=== PATIENT | female | born 1950 | race Caucasian/White ===

== ENCOUNTER → 2020-01-25 11:20 | Outpatient (BNVA) | payer BC, SELFPAY | PROVIDERS: PCP Internal Medicine; Referring Provider Internal Medicine; Visit Provider Hospitalist | DX: Z76.89 Persons encountering health services in other specified circumstances (principal) ==

== ENCOUNTER → 2020-05-23 09:40 | Outpatient (BNVA) | payer BC, SELFPAY | PROVIDERS: PCP Internal Medicine; Visit Provider Hospitalist | DX: J44.9 Chronic obstructive pulmonary disease, unspecified (principal) ==

== ENCOUNTER 2020-12-11 10:37 | Outpatient (REF) | payer BC, SELFPAY ==
--- NOTE | ~2020-12-11 | XR_ITS ---
EXAMINATION: XR CHEST CLINICAL INFORMATION: COPD COMPARISON: None TECHNIQUE: 2 views of the chest were obtained. FINDINGS: The cardiac and mediastinal contours are normal. There is a right subclavian dual chamber pacemaker in satisfactory position. The lungs are well inflated. The lungs are clear. There is no pleural effusion or pneumothorax. There are old left posterior rib fractures. There are degenerative changes of the spine. XR/XR chest 2V IMPRESSION: Well-inflated lungs. No evidence for acute disease in the chest.
[2020-12-11 12:29] LABS: MANUAL DIFF FLAG NO
[2020-12-11 12:31] LABS: Basophils Percent Auto 0.6 % (0-2); Eosinophils Absolute Auto 0.6 X10*3/uL (0.0-0.4); Eosinophils Percent Auto 10.9 % (0-4); Hematocrit 39.6 % (37-47); Hemoglobin 13.2 g/dl (12.0-16.0); Imm Gran Abs Auto 0.01 X10*3/uL (0.00-0.03); Imm Gran Pct Auto 0.2 % (0.0-0.4); Lymphocytes Absolute Auto 1.7 X10*3/uL (1.2-4.9); Lymphocytes Percent Auto 31.9 % (20-40); Mean Corpuscular HGB Conc 33.3 g/dl (31.0-35.0); Mean Corpuscular Hemoglobin 29.2 pg (27.0-33.0); Mean Corpuscular Volume 87.6 fL (80-98); Mean Platelet Volume 9.4 fL (9.4-12.3); Monocytes Absolute Auto 0.6 X10*3/uL (0.1-1.2); Monocytes Percent Auto 10.8 % (2-11); Neutrophils Absolute Auto 2.5 X10*3/uL (2.0-8.3); Neutrophils Percent Auto 45.6 % (45-73); Platelet Count 183 X10*3/uL (160-400); Red Blood Count 4.52 X10*6/uL (4.20-5.50); Red Cell Distribution Width 12.2 % (11.0-16.0); White Blood Count 5.4 X10*3/uL (4.8-10.8)
[2020-12-11 13:11] LABS: Erythrocyte Sedimentation Rate 10 MM/HR (0-20)
== END 2020-12-11 10:38 | disposition home or self-care (01) ==
LOC: HO.LAB 10:37
PROVIDERS: PCP Internal Medicine; Visit Provider Hospitalist
DX: J42 Unspecified chronic bronchitis (principal); R07.9 Chest pain, unspecified; Z01.82 Encounter for allergy testing
CPT/HCPCS: 36415; 71046; 82785; 85025; 85652; 86003

== ENCOUNTER 2020-12-22 11:04 | Outpatient (REF) | payer BC, SELFPAY ==
--- NOTE | 2020-12-22 16:16 | PFT_ITS ---
Forced vital capacity moderately decreased. FEV1, [id number], and MVV are markedly decreased. Post bronchodilator therapy, there is significant improvement in all parameters. Total lung capacity normal. Residual volume moderately increased. Diffusion capacity is markedly decreased. CONCLUSION: Severe obstructive airway disorder. Partial reversibility after bronchodilator therapy is noted. Findings are consistent with asthma/COPD overlap syndrome. Clinical correlation recommended. MD EMMY Gary/MODL / [id number]
== END 2020-12-22 11:05 | disposition home or self-care (01) ==
LOC: HO.RESP 11:04
PROVIDERS: PCP Internal Medicine; Visit Provider Hospitalist
DX: J44.9 Chronic obstructive pulmonary disease, unspecified (principal); R06.2 Wheezing
CPT/HCPCS: 94060; 94727; 94729

== ENCOUNTER → 2021-01-06 13:27 | Outpatient (BNVA) | payer BC, SELFPAY | PROVIDERS: PCP Internal Medicine; Visit Provider Hospitalist | DX: J44.9 Chronic obstructive pulmonary disease, unspecified (principal); R06.2 Wheezing ==

== ENCOUNTER → 2021-03-11 11:05 | Outpatient (BNVA) | payer BC, SELFPAY | PROVIDERS: PCP Internal Medicine; Visit Provider Hospitalist | DX: J44.9 Chronic obstructive pulmonary disease, unspecified (principal); R06.2 Wheezing; J44.1 Chronic obstructive pulmonary disease with (acute) exacerbation; J45.909 Unspecified asthma, uncomplicated ==

== ENCOUNTER → 2021-06-10 11:20 | Outpatient (BNVA) | payer BC, SELFPAY | PROVIDERS: PCP Internal Medicine; Visit Provider Hospitalist | DX: J44.9 Chronic obstructive pulmonary disease, unspecified (principal); R06.2 Wheezing; J44.1 Chronic obstructive pulmonary disease with (acute) exacerbation; J45.909 Unspecified asthma, uncomplicated; K21.9 Gastro-esophageal reflux disease without esophagitis ==

== ENCOUNTER 2022-03-16 11:06 | Observation (INO) | payer BC, SELFPAY ==
[2022-03-16] VITALS (8 sets, daily range): BP systolic 108–141; BP diastolic 38–72; PULSE 80–98; RESP 13–20; TEMP 36.3–36.6; O2SAT 92–97; BMI 22.4
--- NOTE | ~2022-03-16 | XR_ITS ---
EXAMINATION: XR CHEST CLINICAL INFORMATION: Shortness of breath COMPARISON: Previous chest x-ray December 2020 TECHNIQUE: Frontal view of the chest was obtained. FINDINGS: The cardiac and mediastinal contours are stable. There is a right subclavian dual chamber pacemaker that appears unchanged. The lungs are clear. There is no pleural effusion or pneumothorax. There are old left posterior rib fractures. No acute bone finding. XR/XR chest 1V IMPRESSION: No evidence for acute disease in the chest.
--- OUTSIDE RECORDS SUMMARY | 2022-03-16 11:23 | XMS_ITS | Continuity of Care Document ---
:1950 Author Organization [facility] Address [address] [place] [id number]- Care Team Providers Name Role Phone Cheo Figueroa MD Primary Care Physician [place] [facility] [place] - 10/20/[address] [address] [facility] Attending Physician: Cheo Figueroa MD Admitting Physician: Cheo Figueroa MD Referring Physician: Cheo Figueroa MD Allergies, Adverse Reactions, Alerts Substance Reaction Severity Status Vicodin itch all over Active Tape rash Active Medications Albuterol 0.083% Inhalation Solution Refills 0, Maintenance, 06/01/16 9:05:47 Start Date: 06/01/16 Status: OrderedAnoro Ellipta 62.5 mcg-25 mcg/inh inhalation powder 1 puffs, Inhalation, Daily, # 30 each, 5 Refills, Maintenance, 06/01/16 8:48:01, Powder, 1 puffs Inhalation Daily,x30 days Start Date: 06/01/16 Stop Date: 11/28/16 Status: Orderedatorvastatin 20 mg oral tablet 1 tablet = 20 mg, By Mouth, Daily, # 30 tablet, 0 Refills, Maintenance, Tablet Start Date: 06/01/16 Status: OrderedAzithromycin 5 Day Dose Pack 250 mg oral tablet 1 pack/packet, By Mouth, Once, # 6 tablet, 0 Refills, Soft Stop, 04/27/17 3:16:32, Tablet Start Date: 04/27/17 Status: OrderedbuPROPion 150 mg/24 hours (XL) oral tablet, extended release 1 tablet = 150 mg, By Mouth, Every 24 hours, # 30 tablet, 0 Refills, Maintenance, 06/01/16 9:03:26, ER Tablet Start Date: 06/01/16 Status: OrderedColace sodium 100 mg oral capsule 100 mg, 1, capsule, By Mouth, 2 times a day, PRN, # 20 capsule, Refills 0, Tot. Refills 0, Maintenance, for constipation, 04/27/17 3:17:02, Print Requisition Start Date: 04/27/17 Status: OrderedLidoderm 5% film 1 patch, Topically, Daily, # 30 patch, 0 Refills, Maintenance, 10/26/16 15:16:19, 1 patch Topically Daily Start Date: 10/26/16 Status: OrderedLORazepam 0.5 mg oral tablet 2 tablet = 1 mg, By Mouth, Daily at bedtime, 0 Refills, Maintenance, 06/01/16 9:03:04, Tablet Start Date: 06/01/16 Status: Orderedmelatonin 10 mg oral capsule 1 capsule = 10 mg, By Mouth, Daily at bedtime, 0 Refills, Maintenance, 06/01/16 9:05:01 Start Date: 06/01/16 Status: Orderedmontelukast 10 mg oral tablet 10 mg, 1, tablet, By Mouth, Daily, Refills 0, Maintenance, 06/01/16 9:03:40 Start Date: 06/01/16 Status: OrderedPercocet-5/325 325 mg-5 mg oral tablet 1-2 tablet, By Mouth, Every 6 hours, PRN, # 20 tablet, Refills 0, Tot. Refills 0, Maintenance, for pain, 04/27/17 3:16:42, Print Requisition, Tablet Start Date: 04/27/17 Status: OrderedPredniSONE = 20 mg, By Mouth, 2 times a day, 0 Refills, Maintenance, 11/05/16 10:35:24 Start Date: 11/05/16 Status: OrderedProAir HFA 90 mcg/inh inhalation aerosol with adapter 1, puffs, Inhalation, 4 times a day, PRN, # 8.5 Gm, Refills 0, Maintenance, 06/01/16 9:05:35, Aerosol Start Date: 06/01/16 Status: Orderedsertraline 100 mg oral tablet See Instructions, 2 tablet By Mouth Daily, 0 Refills, Maintenance, 06/01/16 9:04:15, Tablet Start Date: 06/01/16 Status: OrderedStiolto Respimat 2.5 mcg-2.5 mcg inhalation aerosol 2 puffs, Inhalation, Every 24 hours, # 180 inhalation, 0 Refills, Maintenance, 06/01/16 9:05:23, Aerosol Start Date: 06/01/16 Status: Ordered Social History Social History Type Response Smoking Status Former smoker; Tobacco user in household: Yes; Other: quit smoking 2007; entered on: 06/01/16 Sex
--- OUTSIDE RECORDS SUMMARY | 2022-03-16 11:23 | XMS_ITS | Continuity of Care Document ---
:1950 Author Organization [facility] Address [address] [place] [address]- Care Team Providers Name Role Phone Henry JIMÉNEZ, Cheo Dillon Primary Care Physician [place] [facility] [place] 09/28/19 [facility] [address] [place] [id number]- [facility] Attending Physician: Michael Velazquez Admitting Physician: Michael Velazquez Referring Physician: AdmtrMichael Allergies, Adverse Reactions, Alerts Substance Reaction Severity [...]
--- OUTSIDE RECORDS SUMMARY | 2022-03-16 11:23 | XMS_ITS | Continuity of Care Document ---
:1950 Author Organization [facility] Address [address] [place] [address]- Care Team Providers Name Role Phone Cheo Figueroa MD Primary Care Physician Encounter [facility] [place] Date(s): 06/09/21 - 07/15/[address] [address] Attending Physician: Cheo Figueroa MD Admitting Physician: [...]
--- OUTSIDE RECORDS SUMMARY | 2022-03-16 11:23 | XMS_ITS | Continuity of Care Document ---
:1950 Author Organization [facility] Address [address] [address]- Care Team Providers Name Role Phone Henry JIMÉNEZ, Cheo Dillon Primary Care Physician En[place] [facility] [place] Date(s): 05/19/21 - 06/18/21 [facility] [address] [address] Attending Physician: Michael Velazquez Admitting Physician: Michael [...]
--- OUTSIDE RECORDS SUMMARY | 2022-03-16 11:23 | XMS_ITS | Continuity of Care Document ---
:1950 Author Organization [facility] Address [address] [place] [address]- Care Team Providers Name Role Phone Cheo Figueroa MD Primary Care Phys[id number] Date(s): 05/29/21 - 05/29/[address] [address]- Encounter Diagnosis Urinary tract infection (Final) - 05/29/21 Discharge Disposition: A-D/C Home Attending Physician: Cadence Perkins MD Admitting Physician: Cadence Perkins MD Referring Physician: Not on Staff, Referring MD Allergies, Adverse Reactions, Alerts Substance Reaction [...] 9:03:26, ER Tablet Start Date: 06/01/16 Status: Orderedcefpodoxime 100 mg oral tablet 1 tablet = 100 mg, By Mouth, Every 12 hours, for 7 days, # 14 tablet, 0 Refills, Acute 06/05/21 20:58:00 EST, 05/29/21 20:58:00 EST, Tablet, [facility] #[id number], Partial fill upon patient request if theprescription is for a schedule II opioid drug. Start Date: 05/29/21 Stop Date: 06/05/21 Status: OrderedColace sodium 100 mg oral capsule [...] 9:05:23, Aerosol Start Date: 06/01/16 Status: Ordered Vital Signs Most recent to oldest 1 2 3 [Reference Range]: Oxygen Saturation [94-100 %] 100 % 100 % 100 % (05/29/21 9:02 PM) (05/29/21 7:10 PM) (05/29/21 5:1 6 PM) Pulse Rate [55-90 bpm] 79 bpm 71 bpm 74 bpm (05/29/21 9:02 PM) (05/29/21 7:10 PM) (05/29/21 5:1 6 PM) Blood Pressure [90-138/55-84 mm 149/72 mm Hg 159/70 mm Hg 160/136 mm Hg Hg] *H* *H* *H* (05/29/21 9:02 PM) (05/29/21 7:10 PM) (05/29/21 5:1 6 PM) Respiratory Rate [16-30 br/min] 16 br/min 15 br/min 14 br/min (05/29/21 9:02 PM) *L* *L* (05/29/21 7:10 PM) (05/29/21 5:16 PM) Temperature [96.8-100.4 DegF] 97.7 DegF 97.6 DegF 97 .6 DegF (05/29/21 9:02 PM) (05/29/21 7:10 PM) (05/29/21 5:1 6 PM) Mode of Delivery (Oxygen) Room air Room air Room a ir (05/29/21 9:02 PM) (05/29/21 7:10 PM) (05/29/21 5:1 6 PM) Blood pressure sites Arm, left Arm, left Arm, left (05/29/21 9:02 PM) (05/29/21 7:10 PM) (05/29/21 5:1 6 PM) Temperature Route Oral Oral Oral (05/29/21 9:02 PM) (05/29/21 7:10 PM) (05/29/21 5:1 6 PM) Social History Social History Type Response Smoking Status Former smoker; Tobacco user in household: Yes; Other: quit smoking 2007; entered on: 06/01/16 Sex
--- NOTE | 2022-03-16 12:26 | ED.SOB ---
HPI - SOB/Dyspnea General Chief Complaint: Dyspnea Stated Complaint: COPD Time Seen by Provider: 03/16/22 12:03 Source: patient Mode of arrival: ambulatory Limitations: no limitations History of Present Illness HPI Narrative: 71 yo female w/ PMHx COPD, HTN, depression, permanent defibrillator, presenting to the ED complaining of nonproductive cough and SOB x5 days. Reports cough originally productive of yellow sputum, now dry w/ subjective fevers, chest pain w/ coughing, and one episode of diarrhea. Reports SOB at rest and worse on exertion. States she uses her nebulizer 4x daily. Denies headache, dizziness, abd pain, vomiting, bloody stools, leg swelling, recent travel, rashes, or skin changes. MD elicited complaint: shortness of breath, cough and chest pain Onset (ago): day(s) Related Data Home Medications Medication Instructions Recorded Confirmed albuterol sulfate 2.5 mg/3 mL mg inhalation Q6H PRN 01/25/20 06/10/21 (0.083 %) solution for nebulization amlodipine 5 mg tablet 5 mg PO DAILY 01/25/20 06/10/21 clobetasol 0.05 % topical cream g topical BID 01/25/20 06/10/21 lorazepam 1 mg tablet 1 mg PO TID 01/25/20 06/10/21 atorvastatin 20 mg tablet 20 mg PO DAILY 05/23/20 06/10/21 Previous Rx's Medication Instructions Recorded albuterol sulfate 90 mcg/actuation 2 puff inhalation Q6H PRN for 10/13/20 aerosol inhaler wheezing #1 ea budesonide 0.5 mg/2 mL suspension 0.5 mg (2 mL) inhalation BID 30 12/11/20 for nebulization days #120 mL tiotropium bromide 2.5 2 puff inhalation DAILY 90 days #3 01/08/21 mcg/actuation mist for inhalation ea (Spiriva Respimat) roflumilast 250 mcg tablet 250 mcg PO DAILY 30 days #30 tabs 03/11/21 (Daliresp) nirmatrelvir 300 mg (150 mg See Rx Instructions PO .COMPLEX 01/01/22 x2)-ritonavir 100 mg tablet,dose #30 ea pack(EUA) (Paxlovid) montelukast 10 mg tablet 10 mg PO BEDTIME #90 tabs 01/13/22 Allergies Allergy/AdvReac Type Severity Reaction Status Date / Time Vicodin Allergy Mild Rash Verified 12/16/21 11:28 Review of Systems Review of Systems: Constitutional: + Chills, No Night Sweats, No Fatigue, No Malaise ENT/Mouth: No Ear Pain, No Nasal Congestion, No Sinus Pain, No Hoarseness, + mild sore throat, No Rhinorrhea, No Swallowing Difficulty Eyes: No Eye Pain, No Swelling, No Discharge, No Vision Changes Cardiovascular: + Chest Pain, + SOB, No Dyspnea on Exertion, No Orthopnea, No Edema, No Palpitations Respiratory: + Cough, _+ yellow Sputum, + Wheezing, + Dyspnea Gastrointestinal: No Nausea, No Vomiting, + Diarrhea, No Constipation, No Abdominal pain Genitourinary:No Dysuria, No Urinary Frequency, Musculoskeletal: No joint pain, No Myalgias, No Joint Swelling Skin: No Skin Lesions, No rash Neuro: No Weakness, No Dizziness, No Headache PMFSH Past Medical History Attestation statement: The following information was validated with the patient. Medical History Chest pain COPD (chronic obstructive pulmonary disease) Dyspnea Wheezing Social History Social History Alcohol intake: never Patient Tobacco Use Status: Former Tobacco user Tobacco use type: Cigarette Years Smoked: 25 years Smoked in Last 30 Days: No Use of substances other than those prescribed or required for medical reasons: No Advance Directives: No Physical Exam Vital Signs: Vital Signs: Last Vital Signs Temp 97.8 F 03/16/22 14:00 Pulse 98 03/16/22 14:00 Resp 16 03/16/22 14:00 BP 121/38 L 03/16/22 14:00 Pulse Ox 96 03/16/22 14:00 O2 Del Method 03/16/22 14:00 BMI result Body Mass Index 22.4 Const: General: cooperative and no acute distress Nutritional Appearance: well nourished Orientation/consciousness: patient oriented x3 Limitations: no limitations HEENT: Head: Yes normal to inspection and Yes atraumatic Eyes: General: appearance normal, both eyes and all related structures Neck: Neck: Yes normal visual inspection, Yes trachea midline and Yes no JVD Lymphatic: no lymphadenopathy noted Chest: Chest palpation & inspection: normal inspection of the chest Resp: Effort & Inspection: able to speak in complete sentences, audible wheezes and Actively coughing Auscultation: no rales, wheezes expiratory wheezes and throughout and diminished lung sounds bilateral in the lower lung arriola Cardio: Jugular venous distension: no JVD Rate: regular rate Heart sounds: S1 normal heart sound present and S2 normal heart sound present GI: Inspection: Yes normal to inspection Palpation (GI): Soft to palpation, not firm, nontender, no guarding and not rigid Skin: General skin exam: no rashes or lesions noted Neuro: General: patient oriented x3 Extrem: General: Yes normal to inspection, Yes no pedal edema and Yes no calf tenderness Course Course Course Narrative: -no leukocytosis. COVID-19/influenza/RSV negative -troponin negative. -1525--labs otherwise unremarkable. CXR without acute disease. Patient ambulated in the ED and became very short of breath, maintained sats 94% on room air > diffuse expiratory wheeze still appreciated on exam. Plan to admit for further management Medications Administered Generic Name Dose Route Start Last Admin Trade Name Freq PRN Reason Stop Dose Admin Magnesium Sulfate 2 gm in 50 mls @ 25 mls/hr 03/16/22 14:14 03/16/22 14:28 Magnesium Sulfate/H2o IV 03/16/22 16:13 25 mls/hr ONCE ONE Administration Discontinued Medications Generic Name Dose Route Start Last Admin Trade Name Freq PRN Reason Stop Dose Admin Acetaminophen 650 mg 03/16/22 14:14 03/16/22 14:27 Acetaminophen 325 Mg Tablet PO 03/16/22 14:15 650 mg ONCE ONE Administration Albuterol Sulfate 5 mg 03/16/22 12:37 03/16/22 12:59 Albuterol Sulfate 2.5 Mg/0.5 Ml Vial.Neb INHALE 03/16/22 12:38 5 mg ONCE ONE Administration Albuterol Sulfate 2.5 mg/ 5 mg 03/16/22 14:14 03/16/22 14:55 Albuterol Sulfate 2.5 mg INHALE 03/16/22 14:15 5 mg ONCE ONE Administration Albuterol/Ipratropium 3 ml 03/16/22 12:37 03/16/22 12:59 Albuterol/Iprat 2.5/0.5mg 3 Ml Ampul.Neb INHALE 03/16/22 12:38 3 ml ONCE ONE Administration Albuterol/Ipratropium 3 ml 03/16/22 13:28 03/16/22 13:42 Albuterol/Iprat 2.5/0.5mg 3 Ml Ampul.Neb INHALE 03/16/22 13:29 3 ml ONCE ONE Administration Benzonatate 100 mg 03/16/22 13:28 03/16/22 14:07 Benzonatate 100 Mg Capsule PO 03/16/22 13:29 100 mg ONCE ONE Administration Hydrocodone Bit/Homatropine Methylb 5 ml 03/16/22 13:28 03/16/22 14:07 Hydrocodone/Homat 5/1.5/5 Ml 5 Ml Syrup PO 03/16/22 13:29 5 ml ONCE ONE Administration Methylprednisolone Sodium Succinate 125 mg 03/16/22 12:37 03/16/22 13:13 Methylprednisolone Sod Succ 125 Mg/2 Ml Vial IVPUSH 03/16/22 12:38 125 mg ONCE ONE Administration Medical Decision Making Medical Decision Making MDM Narrative: 71 yo female w/ PMHx COPD, HTN, depression, permanent defibrillator, presenting to the ED complaining of nonproductive cough and SOB x5 days. On exam vital signs stable, NAD, nontoxic appearing, lungs with diminished breath sounds and expiratory wheeze. No pedal edema. Concern for COPD exacerbation vs viral illness vs pneumonia. Low suspicion for CHF Plan: EKG, labs, CXR, COVID-19/influenza/RSV testing, DuoNeb, IV Solu-Medrol, re-evaluate Differential Diagnosis Differential Diagnoses: The differential diagnosis associated with the presentation includes Admission/Observation Consideration of admission/observation: Escalation of care including admission/observation considered Lab Data Result Diagrams: 03/16/22 13:08 03/16/22 13:08 Labs: Lab Results 03/16/22 03/16/22 03/16/22 Range/Units 11:27 13:08 13:08 WBC 9.2 (4.8-10.8) X10*3/uL RBC 3.95 L (4.20-5.50) X10*6/uL Hgb 11.2 L (12.0-16.0) g/dl Hct 34.0 L (37.0-47.0) % MCV 86.1 (80.0-98.0) fL MCH 28.4 (27.0-33.0) pg MCHC 32.9 (31.0-35.0) g/dl RDW 12.5 (11.0-16.0) % Plt Count 231 (160-400) X10*3/uL MPV 8.6 L (9.4-12.3) fL Immature Gran % (Auto) 0.3 (0.0-0.4) % Neut % (Auto) 69.4 (45-73) % Lymph % (Auto) 17.4 L (20-40) % [place] % (Auto) 8.2 (2-11) % Eos % (Auto) 4.3 H (0-4) % Baso % (Auto) 0.4 (0-2) % Lymph # (Auto) 1.6 (1.2-4.9) X10*3/uL [place] # (Auto) 0.8 (0.1-1.2) X10*3/uL Eos # (Auto) 0.4 (0.0-0.4) X10*3/uL Baso # (Auto) 0.0 (0.0-0.2) X10*3/uL Abs Immat Gran (auto) 0.03 (0.00-0.03) X10*3/uL Absolute Neuts (auto) 6.4 (2.0-8.3) x10*3/uL Absolute Nucleated RBC 0.000 (0.0-0.012) X10*3/uL Nucleated RBC % (auto) 0.0 (0.0-0.2) /100WBC Sodium 140 (135-145) mmol/L Potassium 4.6 (3.3-5.1) mmol/L Chloride 106 (96-108) mmol/L Carbon Dioxide 26 (22-29) mmol/L Anion Gap 13 (12-20) BUN 13 (9-16) mg/dL Creatinine 0.59 (0.5-1.4) mg/dL Estim Creat Clear Calc 79.8 Estimated GFR > 60 Random Glucose 101 (60-115) mg/dL Calcium 8.8 (8.4-10.2) mg/dL Magnesium 1.7 (1.6-2.6) mg/dL Total Bilirubin 0.4 (0.0-1.0) mg/dL Direct Bilirubin 0.2 (0.0-0.5) mg/dL AST 18 (5-31) U/L ALT 13 (0-31) U/L Alkaline Phosphatase 116 (39-117) U/L Troponin I High Sens (<3.5-17.0) ng/L B-Natriuretic Peptide (<100) pg/mL Total Protein 6.6 (6.5-8.0) g/dL Albumin 3.7 (3.5-5.0) g/dL Urine Color Urine Appearance Urine pH (5.0-9.0) Ur Specific [place] (1.005-1.025) Urine Protein (Neg-Trace) mg/dL Urine Glucose (UA) (Negative) mg/dL Urine Ketones (Negative) mg/dL Urine Blood (Negative) Urine Nitrite (Negative) Ur Leukocyte Esterase (Negative) Urine RBC (0-2) /HPF Urine WBC (0-5) /HPF Ur Squamous Epith Cells (0-2) /HPF Urine Bacteria (None Seen) Hyaline Casts (0-2) /LPF Influenza Type A (PCR) NEGATIVE (Negative) Influenza Type B (PCR) NEGATIVE (Negative) RSV RNA Qual (PCR) NEGATIVE (Negative) SARS-CoV-2 RNA (RT-PCR) NEGATIVE (Negative) 03/16/22 03/16/22 03/16/22 Range/Units 13:08 13:08 14:25 WBC (4.8-10.8) X10*3/uL RBC (4.20-5.50) X10*6/uL Hgb (12.0-16.0) g/dl Hct (37.0-47.0) % MCV (80.0-98.0) fL MCH (27.0-33.0) pg MCHC (31.0-35.0) g/dl RDW (11.0-16.0) % Plt Count (160-400) X10*3/uL MPV (9.4-12.3) fL Immature Gran % (Auto) (0.0-0.4) % Neut % (Auto) (45-73) % Lymph % (Auto) (20-40) % [place] % (Auto) (2-11) % Eos % (Auto) (0-4) % Baso % (Auto) (0-2) % Lymph # (Auto) (1.2-4.9) X10*3/uL [place] # (Auto) (0.1-1.2) X10*3/uL Eos # (Auto) (0.0-0.4) X10*3/uL Baso # (Auto) (0.0-0.2) X10*3/uL Abs Immat Gran (auto) (0.00-0.03) X10*3/uL Absolute Neuts (auto) (2.0-8.3) x10*3/uL Absolute Nucleated RBC (0.0-0.012) X10*3/uL Nucleated RBC % (auto) (0.0-0.2) /100WBC Sodium (135-145) mmol/L Potassium (3.3-5.1) mmol/L Chloride (96-108) mmol/L Carbon Dioxide (22-29) mmol/L Anion Gap (12-20) BUN (9-16) mg/dL Creatinine (0.5-1.4) mg/dL Estim Creat Clear Calc Estimated GFR Random Glucose (60-115) mg/dL Calcium (8.4-10.2) mg/dL Magnesium (1.6-2.6) mg/dL Total Bilirubin (0.0-1.0) mg/dL Direct Bilirubin (0.0-0.5) mg/dL AST (5-31) U/L ALT (0-31) U/L Alkaline Phosphatase (39-117) U/L Troponin I High Sens < 3.5 (<3.5-17.0) ng/L B-Natriuretic Peptide 70 (<100) pg/mL Total Protein (6.5-8.0) g/dL Albumin (3.5-5.0) g/dL Urine Color Dark Yellow Urine Appearance Clear Urine pH 5.5 (5.0-9.0) Ur Specific [place] 1.025 (1.005-1.025) Urine Protein 30 (1+) H (Neg-Trace) mg/dL Urine Glucose (UA) Negative (Negative) mg/dL Urine Ketones Trace (Negative) mg/dL Urine Blood Negative (Negative) Urine Nitrite Negative (Negative) Ur Leukocyte Esterase Trace H (Negative) Urine RBC 0-2 (0-2) /HPF Urine WBC 0-5 (0-5) /HPF Ur Squamous Epith Cells 3-5 (0-2) /HPF Urine Bacteria None Seen (None Seen) Hyaline Casts 0-2 (0-2) /LPF Influenza Type A (PCR) (Negative) Influenza Type B (PCR) (Negative) RSV RNA Qual (PCR) (Negative) SARS-CoV-2 RNA (RT-PCR) (Negative) Critical Care Time Critical Care Time Critical Care Time: Yes Total Critical Care Time: 40 Attestation: I have personally provided critical care time exclusive of time spent on separately billable procedures. Time includes review of lab data, radiology results, discussion with consultants, and monitoring for potential decompensation. Intervention performed as documented. Discharge Plan Discharge Clinical Impression: Acute exacerbation of chronic obstructive airways disease Patient Disposition: Admitted As Inpatient
[2022-03-16 12:34] LABS: Influenza A PCR NEGATIVE (Negative); Influenza B PCR NEGATIVE (Negative); Resp Syncy Virus RNA Qual PCR NEGATIVE (Negative); SARS COV2 PCR INHOUSE NEGATIVE (Negative)
--- NOTE | 2022-03-16 12:37 | ECG_ITS ---
Test Reason : DYSPNEA Blood Pressure : / mmHG Vent. Rate : 080 BPM Atrial Rate : 080 BPM P-R Int : 134 ms QRS Dur : 068 ms QT Int : 372 ms P-R-T Axes : 069 061 074 degrees QTc Int : 429 ms Normal sinus rhythm Low voltage QRS Borderline ECG No previous ECGs available Referred By: Angie Hernandez Electronically Signed By:DAMIAN GALINDO
--- NOTE | 2022-03-16 12:38 | PC.NURSE ---
patient a&ox3, pt has audible expiratory wheezing, lungs very diminished throughout, vitals currently stable, call white within reach, will continue to monitor.
[2022-03-16] MEDS: Albuterol/Iprat 2.5/0.5MG 3 ML AMPUL.NEB INHALE ×2 (12:59→13:42)
[2022-03-16] MEDS: Albuterol Sulfate 2.5 MG/0.5 ML VIAL.NEB 5 MG INHALE (12:59)
[2022-03-16] MEDS: methylPREDNISolone Sod Succ 125 MG/2 ML VIAL IVPUSH (13:13)
--- NOTE | 2022-03-16 13:14 | PC.NURSE ---
iv inserted, labs drawn, ekg performed, monitor tech applied nsr 80s, pt medicated per order, rt started updaft, call white within reach, will continue to monitor
[2022-03-16 13:16] LABS: MANUAL DIFF FLAG NO
[2022-03-16 13:22] LABS: Basophils Percent Auto 0.4 % (0-2); Eosinophils Absolute Auto 0.4 X10*3/uL (0.0-0.4); Eosinophils Percent Auto 4.3 % (0-4); Hemoglobin 11.2 g/dl (12.0-16.0); Imm Gran Abs Auto 0.03 X10*3/uL (0.00-0.03); Imm Gran Pct Auto 0.3 % (0.0-0.4); Lymphocytes Absolute Auto 1.6 X10*3/uL (1.2-4.9); Lymphocytes Percent Auto 17.4 % (20-40); Mean Corpuscular HGB Conc 32.9 g/dl (31.0-35.0); Mean Corpuscular Hemoglobin 28.4 pg (27.0-33.0); Mean Corpuscular Volume 86.1 fL (80.0-98.0); Mean Platelet Volume 8.6 fL (9.4-12.3); Monocytes Absolute Auto 0.8 X10*3/uL (0.1-1.2); Monocytes Percent Auto 8.2 % (2-11); Neutrophils Absolute Auto 6.4 x10*3/uL (2.0-8.3); Neutrophils Percent Auto 69.4 % (45-73); Platelet Count 231 X10*3/uL (160-400); Red Blood Count 3.95 X10*6/uL (4.20-5.50); Red Cell Distribution Width 12.5 % (11.0-16.0); White Blood Count 9.2 X10*3/uL (4.8-10.8)
[2022-03-16 13:44] LABS: Alanine Aminotransferase 13 U/L (0-31); Albumin Level 3.7 g/dL (3.5-5.0); Alkaline Phosphatase 116 U/L (39-117); Anion Gap 13 (12-20); Aspartate Amino Transferase 18 U/L (5-31); Bilirubin Direct 0.2 mg/dL (0.0-0.5); Bilirubin Total 0.4 mg/dL (0.0-1.0); Blood Urea Nitrogen 13 mg/dL (9-16); Calcium 8.8 mg/dL (8.4-10.2); Carbon Dioxide 26 mmol/L (22-29); Chloride 106 mmol/L (96-108); Creatinine Clr Calc Pharmacy 79.8; Estimated Glomerular Filt Rate > 60; Glucose Random 101 mg/dL (60-115); Magnesium 1.7 mg/dL (1.6-2.6); Potassium 4.6 mmol/L (3.3-5.1); Sodium 140 mmol/L (135-145); Total Protein 6.6 g/dL (6.5-8.0)
[2022-03-16 13:47] LABS: B Type Natriuretic Peptide 70 pg/mL (<100)
[2022-03-16 13:51] LABS: Troponin-I High Sensitivity < 3.5 ng/L (<3.5-17.0)
[2022-03-16] MEDS: Benzonatate 100 MG CAPSULE PO ×2 (14:07→21:21)
[2022-03-16] MEDS: HYDROcodone/Homat 5/1.5/5 ML 5 ML SYRUP PO (14:07)
--- NOTE | 2022-03-16 14:23 | PC.NURSE ---
patient ambulated with tech around the ED, pt was notably SOB while ambulating however her O2 sat remained at 94% on room air.
[2022-03-16] MEDS: Acetaminophen 325 MG TABLET 650 MG PO (14:27)
[2022-03-16] MEDS: Magnesium Sulfate/H2O 2 GM/50 ML PIGGYBACK IV (14:28)
--- NOTE | 2022-03-16 14:31 | PC.NURSE ---
pt medicated per order
[2022-03-16 14:41] LABS: Appearance Urine Clear; Color Urine Dark Yellow; Glucose Urine UA Negative (Negative); Leukocyte Esterase Urine Trace (Negative); Nitrite Urine Negative (Negative); PH 5.5 (5.0-9.0); Specific Gravity - Urine 1.025 (1.005-1.025); UMIC TRIGGER UACC YES; Urine Blood Negative (Negative); Urine Ketones Trace mg/dL (Negative); Urine Protein 30 (1+) mg/dL (Neg-Trace)
[2022-03-16 14:46] LABS: Bacteria Urine None Seen (None Seen); Hyaline Casts Urine 0-2 /LPF (0-2); RBC Urine 0-2 /HPF (0-2); WBC Urine 0-5 /HPF (0-5)
[2022-03-16] MEDS: Albuterol Sulfate 2.5 MG, Albuterol Sulfate (0.083%) 2.5 MG 5 MG INHALE (14:55)
--- NOTE | 2022-03-16 15:32 | P.HPHOSP_ITS ---
History of Present Illness Date of Service: 03/16/22 Attending physician on admission: Dora Koenig Chief Complaint: SOB 71 year old women presenting with increased sob and dry cough for the last several days. She has a hx of COPD and has been using her inhalors with no relief. She denies recent illness or sick contacts. She lives with her who also has COPD but no recent illness. She denied fever, chills, recent travel, chest pain, nausea, vomiting or diarrhea. CXR neg for consolidation or effusion. Vitals signs stable, labs within acceptable limits. She was given steroids, albuterol. She will be placed on observation for COPD exacerbation without hypoxia. Review of Systems Review of Systems: Denies any recent fever chills or decrease in appetite respiratory See HPI cardiovascular Denied chest pain gastrointestinal denies any dysphagia abdominal pain nausea vomiting or diarrhea genitourinary denies any dysuria frequency or hematuria musculoskeletal denies any joint pain or swelling neuropsych denies any weakness or seizures all other systems reviewed are negative [facility] Medical History (Updated 03/16/22 @ 16:26 by Christina Martínez NP) Anxiety Chest pain COPD (chronic obstructive pulmonary disease) Hypertension Pertinent family history: Denies cardiac disease Social History Alcohol intake: never Patient Tobacco Use Status: Former Tobacco user Tobacco use type: Cigarette Years Smoked: 25 years Smoked in Last 30 Days: No Use of substances other than those prescribed or required for medical reasons: No Advance Directives: No Meds Allergies Allergy/AdvReac Type Severity Reaction Status Date / Time Vicodin Allergy Mild Rash Verified 12/16/21 11:28 Active Medications: Current Medications Magnesium Sulfate (Magnesium Sulfate/H2o) 2 gm in 50 mls @ 25 mls/hr IV ONCE ONE Stop: 03/16/22 16:13 Last Admin: 03/16/22 14:28 Dose: 25 mls/hr Home Medications Medication Instructions Recorded Confirmed Last Taken Type amlodipine 5 mg tablet 5 mg PO DAILY 01/25/20 06/10/21 Unknown History clobetasol 0.05 % topical cream g topical BID 01/25/20 06/10/21 Unknown History lorazepam 1 mg tablet 1 mg PO BEDTIME PRN Sleep 01/25/20 03/16/22 Unknown History atorvastatin 20 mg tablet 20 mg PO DAILY 05/23/20 06/10/21 Unknown History arformoterol 15 mcg/2 mL solution 1 vial inhalation Q12H 03/16/22 03/16/22 Unknown History for nebulization duloxetine 30 mg capsule,delayed 1 cap PO DAILY 03/16/22 03/16/22 Unknown History release duloxetine 60 mg capsule,delayed 1 cap PO DAILY 03/16/22 03/16/22 Unknown History release ipratropium 0.5 mg-albuterol 3 mg 1 vial inhalation QID 03/16/22 03/16/22 Unknown History (2.5 mg base)/3 mL nebulization soln lorazepam 1 mg tablet 1 mg PO DAILY PRN Anxiety 03/16/22 03/16/22 Unknown History trazodone 50 mg tablet 1 tab PO BEDTIME PRN Sleep 03/16/22 03/16/22 Unknown History Physical Exam Vital Signs and Narrative: Vital Signs: Last Vital Signs Temp 97.8 F 03/16/22 14:00 Pulse 98 03/16/22 14:00 Resp 16 03/16/22 14:00 BP 121/38 L 03/16/22 14:00 Pulse Ox 96 03/16/22 14:00 O2 Del Method 03/16/22 14:00 BMI result Body Mass Index 22.4 Appearing in no acute distress head is normocephalic atraumatic eyes pupils are PERRLA sclera is anicteric mouth throat mucous membranes are intact and moist neck is supple no lymphadenopathy, no JVD noted lung sounds are clear to auscultation heart regular rate rhythm, clear S1, S2 positive bowel sounds, abdomen is soft, nontender neuro patient is alert x3, no focal deficits Results Labs CBC and Chem 7: 03/16/22 13:08 03/16/22 13:08 Labs: Laboratory Results - last 24 hr 03/16/22 03/16/22 03/16/22 11:27 13:08 13:08 MCV 86.1 MCH 28.4 MCHC 32.9 RDW 12.5 Plt Count 231 MPV 8.6 L Immature Gran % (Auto) 0.3 Neut % (Auto) 69.4 Lymph % (Auto) 17.4 L [place] % (Auto) 8.2 Eos % (Auto) 4.3 H Baso % (Auto) 0.4 Lymph # (Auto) 1.6 [place] # (Auto) 0.8 Eos # (Auto) 0.4 Baso # (Auto) 0.0 Abs Immat Gran (auto) 0.03 Absolute Neuts (auto) 6.4 Absolute Nucleated RBC 0.000 Nucleated RBC % (auto) 0.0 Anion Gap 13 Estim Creat Clear Calc 79.8 Estimated GFR > 60 Random Glucose 101 Calcium 8.8 Magnesium 1.7 Total Bilirubin 0.4 Direct Bilirubin 0.2 AST 18 ALT 13 Alkaline Phosphatase 116 Troponin I High Sens B-Natriuretic Peptide Total Protein 6.6 Albumin 3.7 Urine Color Urine Appearance Urine pH Ur Specific [place] Urine Protein Urine Glucose (UA) Urine Ketones Urine Blood Urine Nitrite Ur Leukocyte Esterase Urine RBC Urine WBC Ur Squamous Epith Cells Urine Bacteria Hyaline Casts Influenza Type A (PCR) NEGATIVE Influenza Type B (PCR) NEGATIVE RSV RNA Qual (PCR) NEGATIVE SARS-CoV-2 RNA (RT-PCR) NEGATIVE 03/16/22 03/16/22 03/16/22 13:08 13:08 14:25 MCV MCH MCHC RDW Plt Count MPV Immature Gran % (Auto) Neut % (Auto) Lymph % (Auto) [place] % (Auto) Eos % (Auto) Baso % (Auto) Lymph # (Auto) [place] # (Auto) Eos # (Auto) Baso # (Auto) Abs Immat Gran (auto) Absolute Neuts (auto) Absolute Nucleated RBC Nucleated RBC % (auto) Anion Gap Estim Creat Clear Calc Estimated GFR Random Glucose Calcium Magnesium Total Bilirubin Direct Bilirubin AST ALT Alkaline Phosphatase Troponin I High Sens < 3.5 B-Natriuretic Peptide 70 Total Protein Albumin Urine Color Dark Yellow Urine Appearance Clear Urine pH 5.5 Ur Specific [place] 1.025 Urine Protein 30 (1+) H Urine Glucose (UA) Negative Urine Ketones Trace Urine Blood Negative Urine Nitrite Negative Ur Leukocyte Esterase Trace H Urine RBC 0-2 Urine WBC 0-5 Ur Squamous Epith Cells 3-5 Urine Bacteria None Seen Hyaline Casts 0-2 Influenza Type A (PCR) Influenza Type B (PCR) RSV RNA Qual (PCR) SARS-CoV-2 RNA (RT-PCR) Imaging Radiologist's Impressions: Impressions Chest X-Ray 03/16/22 13:58 IMPRESSION: No evidence for acute disease in the chest. Assessment and Plan (1) Acute exacerbation of chronic obstructive airways disease: Status: Acute Plan 71 Year old women admitted with COPD exacerbation with no hypoxia. COPD exacerbation No hypoxia noted Treat with duonebs and solumedrol supplemental oxygen as needed Hypertension continue home medications HLD statin Mental health continue home medications DVT prophylaxis with Lovenox Full code OBS Time Spent With Patient Time: Total time managing care of this patient today ____ minutes. Quality Stroke Does the patient have a stroke diagnosis?: No VTE Prior VTE?: No VTE Risk Level:: Medical - moderate - high VTE Device Contraindication: Treatment Not Indicated VTE Drug Contraindication: N/A - Med Ordered
[2022-03-16] MEDS: 0.9 % Sodium Chloride Flush 3 ML SYRINGE IVFLUSH (16:39)
[2022-03-16] MEDS: Enoxaparin Sodium 40 MG/0.4 ML SYRINGE SUBCUT (16:39)
--- NOTE | 2022-03-16 16:40 | PC.NURSE ---
pt medicated per order
--- NOTE | 2022-03-16 16:51 | PHA.MEDREC ---
Pharmacy Consult ? Medication Reconciliation Pharmacy has completed the medication reconciliation. spoke with pt and reviewed the list she brought in
--- NOTE | 2022-03-16 18:39 | P.EN_ITS ---
Event Note Date of Service: 03/16/22 Event Note: This patient is seen and examined with APC. Patient presented with shortness of breath and dry cough for several days she tried her home nebulizer but did not help so decided to come to the hospital- admitted for COPD exacerbation. Lab imaging: h/h:,bmp seems fine , EKG reviewed-nsr. Physical exam : Coordinated admitted in H&P note,lung sounds dimnished ,wheezing assessment and plan coordinated in APCs note, Agree with the plan in addition: COPD exacerbation Continue nebs, steroids, supportive care with oxygen, continue to monitor respiratory status Time Spent With Patient Time: Total time managing care of this patient today ____ minutes.
[2022-03-16] MEDS: Albuterol Sulfate (0.083%) 2.5 MG/3 ML VIAL.NEB INHALE (20:12)
[2022-03-16] MEDS: methylPREDNISolone Sod Succ 40 MG/ML VIAL IVPUSH (20:14)
--- NOTE | 2022-03-16 20:14 | PC.NURSE ---
pt medicated per order, rt at bedside doing updraft vss
[2022-03-17] VITALS (11 sets, daily range): BP systolic 120–153; BP diastolic 55–76; PULSE 80–100; RESP 16–20; TEMP 35.9–36.6; O2SAT 93–96
[2022-03-17] MEDS: 0.9 % Sodium Chloride Flush 3 ML SYRINGE IVFLUSH ×2 (00:14→20:05)
[2022-03-17] MEDS: Montelukast Sodium 10 MG TABLET PO ×2 (00:16→20:05)
[2022-03-17] MEDS: DULoxetine HCl 30 MG CAPSULE.DR PO ×2 (00:16→20:05)
[2022-03-17] MEDS: traZODone HCL 50 MG TABLET PO (00:16)
[2022-03-17] MEDS: Atorvastatin Calcium 20 MG TABLET PO ×2 (00:16→20:05)
[2022-03-17] MEDS: amLODIPine Besylate 5 MG TABLET PO ×2 (00:16→20:05)
[2022-03-17] MEDS: DULoxetine HCl 60 MG CAPSULE.DR PO ×2 (00:31→20:05)
[2022-03-17] MEDS: methylPREDNISolone Sod Succ 40 MG/ML VIAL IVPUSH ×3 (04:19→20:05)
[2022-03-17 06:47] LABS: MANUAL DIFF FLAG NO
[2022-03-17 06:54] LABS: Basophils Percent Auto 0.1 % (0-2); Hematocrit 33.1 % (37.0-47.0); Hemoglobin 10.8 g/dl (12.0-16.0); Imm Gran Abs Auto 0.07 X10*3/uL (0.00-0.03); Imm Gran Pct Auto 0.8 % (0.0-0.4); Lymphocytes Absolute Auto 0.7 X10*3/uL (1.2-4.9); Lymphocytes Percent Auto 7.4 % (20-40); Mean Corpuscular HGB Conc 32.6 g/dl (31.0-35.0); Mean Corpuscular Hemoglobin 28.5 pg (27.0-33.0); Mean Corpuscular Volume 87.3 fL (80.0-98.0); Mean Platelet Volume 9.1 fL (9.4-12.3); Monocytes Absolute Auto 0.3 X10*3/uL (0.1-1.2); Monocytes Percent Auto 3.7 % (2-11); Neutrophils Absolute Auto 8.1 x10*3/uL (2.0-8.3); Platelet Count 250 X10*3/uL (160-400); Red Blood Count 3.79 X10*6/uL (4.20-5.50); Red Cell Distribution Width 12.5 % (11.0-16.0); White Blood Count 9.2 X10*3/uL (4.8-10.8)
[2022-03-17] MEDS: Albuterol Sulfate (0.083%) 2.5 MG/3 ML VIAL.NEB INHALE ×4 (07:37→20:17)
[2022-03-17 07:39] LABS: Anion Gap 17 (12-20); Blood Urea Nitrogen 29 mg/dL (9-16); Calcium 8.8 mg/dL (8.4-10.2); Carbon Dioxide 25 mmol/L (22-29); Chloride 106 mmol/L (96-108); Creatinine Clr Calc Pharmacy 49.6; Estimated Glomerular Filt Rate 58; Glucose Random 165 mg/dL (60-115); Potassium 3.9 mmol/L (3.3-5.1); Sodium 144 mmol/L (135-145)
--- NOTE | 2022-03-17 11:40 | MHC.CM.PN ---
Meet with patient for CM assessment. from home no services prior to admission. vax'd & boosted. HCP completed. d/c plan- later today after being seen by Dr. Koenig, home no services. family to transport.
[2022-03-17] MEDS: Benzonatate 100 MG CAPSULE PO (14:18)
[2022-03-17] MEDS: Enoxaparin Sodium 40 MG/0.4 ML SYRINGE SUBCUT (16:26)
[2022-03-17] MEDS: Acetaminophen 325 MG TABLET 650 MG PO (16:28)
[2022-03-18] MEDS: traZODone HCL 50 MG TABLET PO (00:18)
[2022-03-18] MEDS: Acetaminophen 325 MG TABLET 650 MG PO ×2 (00:18→09:16)
[2022-03-18] MEDS: Benzonatate 100 MG CAPSULE PO (00:18)
[2022-03-18 04:00] VITALS: BP 106/51; PULSE 75; RESP 17; TEMP 36.7; O2SAT 96
[2022-03-18] MEDS: methylPREDNISolone Sod Succ 40 MG/ML VIAL IVPUSH (05:20)
[2022-03-18] MEDS: 0.9 % Sodium Chloride Flush 3 ML SYRINGE IVFLUSH (07:15)
[2022-03-18] MEDS: Albuterol Sulfate (0.083%) 2.5 MG/3 ML VIAL.NEB INHALE ×2 (07:56→11:20)
[2022-03-18 07:58] VITALS: PULSE 87; RESP 18; O2SAT 97
[2022-03-18 08:00] VITALS: BP 121/64; PULSE 84; RESP 18; TEMP 36.5; O2SAT 97
[2022-03-18] MEDS: Loratadine 10 MG TABLET PO (09:16)
[2022-03-18] MEDS: guaiFENesin 100 MG/5 ML LIQUID 10 ML PO (09:17)
[2022-03-18 11:22] VITALS: PULSE 99; RESP 20; O2SAT 95
--- NOTE | 2022-03-18 12:12 | PM.DS ---
DS: Providers Provider Date of Service: 03/18/22 Date of admission: 03/16/22 15:37 Primary care physician: Cheo Figueroa MD DS: Diagnosis Discharge Diagnosis (1) Acute exacerbation of chronic obstructive airways disease: Status: Acute DS: Summary Hospital Course Hospital Course: 71 year old women presenting with increased sob and dry cough for the last several days. She has a hx of COPD and has been using her inhalors with no relief. She denies recent illness or sick contacts. She lives with her who also has COPD but no recent illness. She denied fever, chills, recent travel, chest pain, nausea, vomiting or diarrhea. CXR neg for consolidation or effusion. Vitals signs stable, labs within acceptable limits. She was given steroids, albuterol. She will be placed on observation for COPD exacerbation without hypoxia. hospital course: Patient was admitted for COPD exacerbation: Started on nebs, steroids, supportive care-seems to be improved. Going home with p.o. steroids, continue her home COPD medications. Above management discussed with the patient in detail length she understand and in agreement with the above plan, time spent 50 minutes and 50% time spent on counseling. Time Spent with Patient Time attestation: Total time managing care of this patient today ____ minutes. Discharge coordination time: Greater than 30 minutes Quality: Safe Use of Opioids Does Pt have an Active Cancer Diagnosis on the Problem List?: No Quality: Stroke Does the patient have a stroke diagnosis?: No Physical Exam Vital Signs: Vital Signs: Last Vital Signs Temp 97.7 F 03/18/22 08:00 Pulse 99 03/18/22 11:22 Resp 20 03/18/22 11:22 BP 121/64 03/18/22 08:00 Pulse Ox 97 03/18/22 08:00 O2 Del Method 03/18/22 08:00 BMI result Body Mass Index 22.4 Appearance: Alert.? Oriented X3.? not in distress.? Eyes: Pupils equal, round and reactive to light.? Sclera nonicteric.? ENT: Pharynx normal.? Moist mucous membranes. cvs: rrr, [id number]. res: clear to auscultation ,no rhonchii or wheezing abd: no rebound or guarding ,nt, bs present. ext pulses present , no cyanosis . neuro: axo3 , nonfocal. DS: Data Imaging Chest x-ray: Radiologist's impression: ITS Impressions Chest X-Ray 03/16/22 13:58 IMPRESSION: No evidence for acute disease in the chest. Discharge Plan Discharge Patient Disposition: Home, Self-Care Discharge Diagnosis: copd excerebation Referrals: Cheo Figueroa MD [Primary Care Provider] - 1 Week Discharge Medications: New loratadine 10 mg Tablet 10 mg PO DAILY Qty: 5 0RF prednisone 20 mg tablet 40 mg PO DAILY Qty: 8 0RF Continued albuterol sulfate 90 mcg/actuation HFA aerosol inhaler 2 puff inhalation Q6H PRN (Reason: for wheezing) Qty: 1 3RF Spiriva Respimat 2.5 mcg/actuation mist 2 puff inhalation DAILY 90 Days Qty: 3 3RF montelukast 10 mg tablet 10 mg PO BEDTIME Qty: 90 1RF ipratropium-albuterol 0.5 mg-3 mg(2.5 mg base)/3 mL solution for nebulization 1 vial inhalation QID trazodone 50 mg tablet 1 tab PO BEDTIME PRN (Reason: Sleep) duloxetine 30 mg capsule,delayed release(DR/EC) 30 mg PO BEDTIME duloxetine 60 mg capsule,delayed release(DR/EC) 60 mg PO BEDTIME roflumilast [Daliresp] 250 mcg tablet 250 mcg PO BEDTIME amlodipine 5 mg tablet 5 mg PO BEDTIME atorvastatin 20 mg tablet 20 mg PO BEDTIME Discharge Orders: Discharge Order (Routine); Ordered 03/18/22 Ordered By: Dora Koenig Diet: Advance to usual diet Activity on Discharge: As tolerated Stand Alone Forms: Patient Portal Discharge page Care Plan Goals: Patient was admitted for COPD exacerbation: Started on nebs, steroids, supportive care-seems to be improved. Going home with p.o. steroids, continue her home COPD medications. Health Concerns: As above. Plan of Treatment: As above. Assessment: As above. Patient Instructions: COPD (Chronic Obstructive Pulmonary Disease) (DC)
--- NOTE | 2022-03-18 12:42 | MHC.CM.PN ---
PT MEDICALLY CLEARED FOR D/C HOME SELF CARE, PT REPORTS HER WILL TRANSPORT HOME
== END 2022-03-18 13:12 | disposition home or self-care (01) ==
LOC: HO.ED 15:27 → HO.EDOVER 15:51 → HO.S3 03-17 15:18
PROVIDERS: Physician Assistant; Admitting Provider Nurse Practitioner Acute Care; Emergency Provider Emergency Medicine; PCP Internal Medicine; Visit Provider Internal Medicine
DX: J44.1 Chronic obstructive pulmonary disease with (acute) exacerbation (principal); R06.02 Shortness of breath; I10 Essential (primary) hypertension; F33.1 Major depressive disorder, recurrent, moderate; R05.9 Cough, unspecified; Z20.822 Contact with and (suspected) exposure to COVID-19; Z79.899 Other long term (current) drug therapy; Z87.891 Personal history of nicotine dependence
CPT/HCPCS: 0241U; 36415; 71045; 80048; 80076; 81001; 83735; 83880; 84484; 85025; 93005; 94640; 96365; 96366; 96372; 96376; 99218; 99285; J1650; J2920; J2930; J3475

== ENCOUNTER → 2022-03-19 13:26 | Outpatient (BNVA) | payer BC, SELFPAY | PROVIDERS: PCP Internal Medicine; Visit Provider Hospitalist | DX: J44.0 Chronic obstructive pulmonary disease with (acute) lower respiratory infection (principal); J18.0 Bronchopneumonia, unspecified organism; R06.00 Dyspnea, unspecified | CPT/HCPCS: 94640; 96372; J2930 ==

== ENCOUNTER 2022-03-22 14:22 | Outpatient (REF) | payer BC, SELFPAY ==
[2022-03-22 14:38] LABS: MANUAL DIFF FLAG NO
[2022-03-22 15:04] LABS: Basophils Percent Auto 0.2 % (0-2); Eosinophils Absolute Auto 0.5 X10*3/uL (0.0-0.4); Hematocrit 41.1 % (37.0-47.0); Hemoglobin 13.5 g/dl (12.0-16.0); Imm Gran Abs Auto 0.34 X10*3/uL (0.00-0.03); Imm Gran Pct Auto 2.8 % (0.0-0.4); Lymphocytes Absolute Auto 2.8 X10*3/uL (1.2-4.9); Mean Corpuscular HGB Conc 32.8 g/dl (31.0-35.0); Mean Corpuscular Hemoglobin 28.3 pg (27.0-33.0); Mean Corpuscular Volume 86.2 fL (80.0-98.0); Mean Platelet Volume 8.4 fL (9.4-12.3); Monocytes Absolute Auto 0.7 X10*3/uL (0.1-1.2); Monocytes Percent Auto 5.9 % (2-11); Neutrophils Absolute Auto 7.7 x10*3/uL (2.0-8.3); Neutrophils Percent Auto 64.1 % (45-73); Platelet Count 378 X10*3/uL (160-400); Red Blood Count 4.77 X10*6/uL (4.20-5.50); Red Cell Distribution Width 12.6 % (11.0-16.0); White Blood Count 12.1 X10*3/uL (4.8-10.8)
[2022-03-22 15:48] LABS: Erythrocyte Sedimentation Rate 45 MM/HR (0-20)
[2022-03-22 15:49] LABS: Anion Gap 13 (12-20); Blood Urea Nitrogen 19 mg/dL (9-16); Carbon Dioxide 30 mmol/L (22-29); Chloride 102 mmol/L (96-108); Estimated Glomerular Filt Rate > 60; Glucose Random 93 mg/dL (60-115); Sodium 141 mmol/L (135-145)
[2022-03-22 16:06] LABS: Troponin-I High Sensitivity < 3.5 ng/L (<3.5-17.0)
== END 2022-03-22 14:23 | disposition home or self-care (01) ==
LOC: HO.XRAY 14:22
PROVIDERS: PCP Internal Medicine; Visit Provider Hospitalist
DX: J18.0 Bronchopneumonia, unspecified organism (principal)
CPT/HCPCS: 36415; 71046; 80048; 84484; 85025; 85652

== ENCOUNTER 2022-04-20 10:29 | Outpatient (REF) | payer BC, SELFPAY ==
[2022-04-20 11:56] LABS: MANUAL DIFF FLAG NO
[2022-04-20 12:27] LABS: Basophils Absolute Auto 0.1 X10*3/uL (0.0-0.2); Basophils Percent Auto 0.5 % (0-2); Eosinophils Absolute Auto 0.5 X10*3/uL (0.0-0.4); Eosinophils Percent Auto 4.4 % (0-4); Hematocrit 39.6 % (37.0-47.0); Hemoglobin 12.8 g/dl (12.0-16.0); Imm Gran Abs Auto 0.04 X10*3/uL (0.00-0.03); Imm Gran Pct Auto 0.4 % (0.0-0.4); Lymphocytes Absolute Auto 2.2 X10*3/uL (1.2-4.9); Lymphocytes Percent Auto 20.2 % (20-40); Mean Corpuscular HGB Conc 32.3 g/dl (31.0-35.0); Mean Corpuscular Hemoglobin 28.7 pg (27.0-33.0); Mean Corpuscular Volume 88.8 fL (80.0-98.0); Mean Platelet Volume 9.6 fL (9.4-12.3); Monocytes Absolute Auto 1.1 X10*3/uL (0.1-1.2); Monocytes Percent Auto 9.9 % (2-11); Neutrophils Percent Auto 64.6 % (45-73); Platelet Count 239 X10*3/uL (160-400); Red Blood Count 4.46 X10*6/uL (4.20-5.50); Red Cell Distribution Width 13.4 % (11.0-16.0); White Blood Count 10.7 X10*3/uL (4.8-10.8)
[2022-04-20 12:33] LABS: D Dimer High Sensitivity 206 NG/ML
[2022-04-20 13:01] LABS: Troponin-I High Sensitivity < 3.5 ng/L (<3.5-17.0)
[2022-04-20 13:22] LABS: Erythrocyte Sedimentation Rate 25 MM/HR (0-20)
[2022-04-20 13:54] LABS: Anion Gap 15 (12-20); Blood Urea Nitrogen 19 mg/dL (9-16); Calcium 9.1 mg/dL (8.4-10.2); Carbon Dioxide 27 mmol/L (22-29); Chloride 104 mmol/L (96-108); Estimated Glomerular Filt Rate > 60; Glucose Random 100 mg/dL (60-115); Potassium 4.2 mmol/L (3.3-5.1); Sodium 142 mmol/L (135-145)
== END 2022-04-20 10:30 | disposition home or self-care (01) ==
LOC: HO.LAB 10:29
PROVIDERS: PCP Internal Medicine; Visit Provider Hospitalist
DX: J44.1 Chronic obstructive pulmonary disease with (acute) exacerbation (principal); R06.00 Dyspnea, unspecified; R07.9 Chest pain, unspecified
CPT/HCPCS: 36415; 80048; 84484; 85025; 85379; 85652; 94618; 94640; 96372; J2930

== ENCOUNTER → 2022-05-06 10:42 | Outpatient (BNVA) | payer BC, SELFPAY | PROVIDERS: PCP Internal Medicine; Visit Provider Hospitalist | DX: J44.1 Chronic obstructive pulmonary disease with (acute) exacerbation (principal); R06.00 Dyspnea, unspecified; R07.9 Chest pain, unspecified; J44.9 Chronic obstructive pulmonary disease, unspecified ==

== ENCOUNTER 2022-05-15 14:13 | Emergency (ER) | payer BC, SELFPAY ==
--- NOTE | 2022-05-15 14:19 | ED.EYEPROB ---
HPI - Eye Problem General Chief complaint: Eye Problems <RITU Edwards - Last Filed: 05/15/22 14:27> Stated complaint: eye bleeding <RITU Edwards Last Filed: 05/15/22 14:27> Time Seen by Provider: 05/15/22 14:29 <RITU Edwards - Last Filed: 05/15/22 14:27> Source: patient <RITU Sutton Last Filed: 05/15/22 18:25> Mode of arrival: ambulatory <RITU Sutton Last Filed: 05/15/22 18:25> Limitations: no limitations <RITU Sutton Last Filed: 05/15/22 18:25> History of Present Illness HPI Narrative: Patient is a 71 year old assigned female at with a history of COPD presenting to the emergency department today with left eye redness. Patient states that she was in the grocery store today when someone asked what was wrong with her left eye. Patient states that she went to the urgent care and they recommended that she come here. Patient denies any vision complaints. Patient states that her eye feels fine. Patient denies any anti-coagulation use. Patient denies any dizziness, lightheadedness, abdominal pain, nausea, vomiting, fever, chills, blurry vision, double vision, loss of vision, chest pain, difficulty breathing, shortness of breath, back pain, night sweats, pain with urination, increased urinary frequency, increased urinary urgency, blood in her urine or stool, syncope or a near syncopal episode, recent trauma or falls, bowel incontinence, bladder incontinence, bowel retention, bladder retention, or any other complaints at this time. <RITU Sutton - Last Filed: 05/15/22 18:25> chief complaint: eye redness <RITU Sutton Last Filed: 05/15/22 18:25> Onset (ago): minute(s) <RITU Sutton Last Filed: 05/15/22 18:25> Onset description: unknown <RITU Sutton Last Filed: 05/15/22 18:25> Duration: constant <RITU Sutton Last Filed: 05/15/22 18:25> Location: left eye <RITU Sutton - Last Filed: 05/15/22 18:25> Mechanism: none <RITU Sutton - Last Filed: 05/15/22 18:25> Severity scale (1-10): 1 <RITU Sutton - Last Filed: 05/15/22 18:25> Associated symptoms: none <RITU Sutton - Last Filed: 05/15/22 18:25> Treatments Prior to Arrival: none <RITU Sutton - Last Filed: 05/15/22 18:25> Related Data Home medications: Home Medications Medication Instructions Recorded Confirmed amlodipine 5 mg tablet 5 mg PO BEDTIME 01/25/20 03/16/22 atorvastatin 20 mg tablet 20 mg PO BEDTIME 05/23/20 03/16/22 duloxetine 30 mg capsule,delayed 30 mg PO BEDTIME 03/16/22 03/16/22 release duloxetine 60 mg capsule,delayed 60 mg PO BEDTIME 03/16/22 03/16/22 release ipratropium 0.5 mg-albuterol 3 mg 1 vial inhalation QID 03/16/22 03/16/22 (2.5 mg base)/3 mL nebulization soln trazodone 50 mg tablet 1 tab PO BEDTIME PRN Sleep 03/16/22 03/16/22 budesonide 0.25 mg/2 mL suspension 0.5 mg inhalation DAILY 03/19/22 for nebulization nebulizers 03/19/22 lorazepam 1 mg tablet 1 mg PO BEDTIME PRN 05/06/22 Previous Rx's Medication Instructions Recorded albuterol sulfate 90 mcg/actuation 2 puff inhalation Q6H PRN for 10/13/20 aerosol inhaler wheezing #1 ea tiotropium bromide 2.5 2 puff inhalation DAILY 90 days #3 01/08/21 mcg/actuation mist for inhalation ea (Spiriva Respimat) montelukast 10 mg tablet 10 mg PO BEDTIME #90 tabs 01/13/22 loratadine 10 mg tablet 10 mg PO DAILY #5 tabs 03/18/22 roflumilast 250 mcg tablet 250 mcg PO DAILY #30 tabs 04/01/22 azithromycin 250 mg tablet 250 mg PO 3XW 28 days #12 tabs 05/06/22 <RITU Edwards Last Filed: 05/15/22 14:27> Allergies/adverse reactions: Allergies Allergy/AdvReac Type Severity Reaction Status Date / Time hydrocodone [From Vicodin] Allergy Mild Rash Verified 05/06/22 10:56 <RITU Edwards Last Filed: 05/15/22 14:27> Review of Systems Constitutional: Constitutional: Reports no additional constitutional complaints, Denies chills, Denies fever(s) and Denies night sweats <RITU Sutton Last Filed: 05/15/22 18:25> Eyes: Eyes: Reports no additional eye complaints, Denies blurry vision, Denies change in vision, Denies diplopia, Denies eye discharge, Denies loss of vision and Denies eye pain <RITU Sutton Last Filed: 05/15/22 18:25> Comments: left eye redness <RITU Sutton Last Filed: 05/15/22 18:25> ENT: Denies dizziness <RITU Sutton Last Filed: 05/15/22 18:25> Cardiovascular: Cardiovascular: Reports no additional cardiovascular complaints, Denies chest pain, Denies lightheadedness, Denies Loss of Consciousness and Denies dyspnea <RITU Sutton Last Filed: 05/15/22 18:25> Respiratory: Respiratory: Reports no additional respiratory complaints and Denies dyspnea <RITU Sutton Last Filed: 05/15/22 18:25> Gastrointestinal: Gastrointestinal: Reports no additional gastrointestinal complaints, Denies abdominal pain, Denies melena, Denies hematochezia, Denies change in bowel habits and Denies change in stool character <RITU Sutton Last Filed: 05/15/22 18:25> Genitourinary: Genitourinary: Denies hematuria, Denies urinary frequency, Denies dysuria, Denies urinary incontinence, Denies urinary hesitancy and Denies urinary urgency <RITU Sutton Last Filed: 05/15/22 18:25> Musculoskeletal: Musculoskeletal: Reports no additional musculoskeletal complaints, Denies numbness and Denies tingling <RITU Sutton Last Filed: 05/15/22 18:25> Neurologic: Denies dizziness, Denies loss of vision, Denies numbness and Denies tingling <RITU Sutton - Last Filed: 05/15/22 18:25> Psychiatric: Psychiatric: Reports no additional psychiatric complaints <RITU Sutton - Last Filed: 05/15/22 18:25> Endocrine: Endocrine: Reports no additional endocrine complaints <RITU Sutton - Last Filed: 05/15/22 18:25> Hematologic/Lymphatic: Hematologic/Lymphatic: Reports no additional hematologic/lymphatic complaints <RITU Sutton - Last Filed: 05/15/22 18:25> Allergic/Immunologic: Allergic/Immunologic: Reports no additional allergic/immunologic complaints <RITU Sutton - Last Filed: 05/15/22 18:25> [facility] Past Medical History Attestation statement: The following information was validated with the patient. <RITU Sutton - Last Filed: 05/15/22 18:25> Source: old records reviewed and nursing notes reviewed <RITU Sutton - Last Filed: 05/15/22 18:25> Medical History: Medical History Anxiety Chest pain COPD (chronic obstructive pulmonary disease) Hypertension <RITU Edwards - Last Filed: 05/15/22 14:27> Social History Social History: Social History Household Members: Family Housing: House Do you presently have visiting nurse or other home services: No Alcohol intake: never Patient Tobacco Use Status: Former Tobacco user Tobacco use type: Cigarette Years Smoked: 25 years Advance Directives: No Advance Directives Information Provided: No service: No Current occupational status: retired <RITU Edwards - Last Filed: 05/15/22 14:27> Physical Exam Vital Signs: Vital Signs: Last Vital Signs Temp 97 F 05/15/22 14:21 Pulse 80 05/15/22 14:21 Resp 18 05/15/22 14:21 BP 137/87 05/15/22 14:21 Pulse Ox 96 05/15/22 14:21 O2 Del Method 05/15/22 14:21 BMI result Body Mass Index 23.3 <RITU Edwards - Last Filed: 05/15/22 14:27> Vital Signs: Last Vital Signs Temp 97 F 05/15/22 14:21 Pulse 80 05/15/22 14:21 Resp 18 05/15/22 14:21 BP 137/87 05/15/22 14:21 Pulse Ox 96 05/15/22 14:21 O2 Del Method 05/15/22 14:21 BMI result Body Mass Index 23.3 <RITU Sutton - Last Filed: 05/15/22 18:25> Const: General: cooperative, no acute distress, alert and awake <RITU Sutton - Last Filed: 05/15/22 18:25> Nutritional Appearance: well nourished <RITU Sutton - Last Filed: 05/15/22 18:25> Orientation/consciousness: patient oriented x3 <Andree Gupta [place] - Last Filed: 05/15/22 18:25> Limitations: no limitations <RITU Sutton - Last Filed: 05/15/22 18:25> HEENT: Head: Yes normal to inspection and Yes atraumatic <Andree Gupta [place] - Last Filed: 05/15/22 18:25> Ears: hearing grossly normal bilaterally and external ears normal <RITU Sutton - Last Filed: 05/15/22 18:25> General nose exam: Normal external nose present, no nasal discharge noted and no epistaxis <RITU Sutton - Last Filed: 05/15/22 18:25> Face and sinus: Yes normal facial exam, No abrasion and No laceration <RITU Sutton - Last Filed: 05/15/22 18:25> Mouth: Normal oral and palatal mucosa present, no drooling and no muffled voice <Andree Gupta [place] - Last Filed: 05/15/22 18:25> Eyes: Other: obvious left subconjunctival hemorrhage <RITU Sutton - Last Filed: 05/15/22 18:25> Periorbital: periorbital findings normal <RITU Sutton - Last Filed: 05/15/22 18:25> Eyelids: Yes eyelids normal <RITU Sutton - Last Filed: 05/15/22 18:25> Pupils: Equal, round and reactive pupils present <Andree Gupta PA - Last Filed: 05/15/22 18:25> EOM: EOMs intact bilaterally <Andree GuptaRITU - Last Filed: 05/15/22 18:25> Neck: Neck: Yes normal visual inspection, Yes full ROM and Yes no lymphadenopathy <Andree Gupta PA - Last Filed: 05/15/22 18:25> Chest: Chest palpation & inspection: normal inspection of the chest <Andree Gupta PA - Last Filed: 05/15/22 18:25> Resp: Effort & Inspection: normal respiratory effort and able to speak in complete sentences <Andree Gupta PA - Last Filed: 05/15/22 18:25> Auscultation: clear to auscultation bilaterally <Andree Gupta [place] - Last Filed: 05/15/22 18:25> Cardio: Rate: regular rate <Andree Gupta [place] - Last Filed: 05/15/22 18:25> Rhythm: regular rhythm <Andree Gupta PA - Last Filed: 05/15/22 18:25> GI: Inspection: Yes normal to inspection <Andree Gupta [place] - Last Filed: 05/15/22 18:25> Palpation (GI): Soft to palpation, not firm, nontender and no guarding <Andree Gupta [place] - Last Filed: 05/15/22 18:25> Neuro: General: patient oriented x3 and moves all extremities <Andree Coving[place]jonnathan [place] - Last Filed: 05/15/22 18:25> Cranial nerves: Yes Equal, round and reactive pupils present <Andree Gupta PA - Last Filed: 05/15/22 18:25> Cognition (Neuro): normal cognition <Andree Gupta PA - Last Filed: 05/15/22 18:25> Motor exam (neuro): 5/5 motor strength present throughout <Andree Gupta PA - Last Filed: 05/15/22 18:25> Sensory Exam: Normal double simultaneous stimulation for sensation <Andree Covingtonjonnathan PA - Last Filed: 05/15/22 18:25> Coordination: [id number] test normal <Andree CovingtonRITU de [place] - Last Filed: 05/15/22 18:25> Extrem: General: Yes normal to inspection, Yes full ROM and Yes capillary refill normal <RITU Sutton - Last Filed: 05/15/22 18:25> Psych: Appearance: grossly normal <RITU Sutton - Last Filed: 05/15/22 18:25> Mental Status: mental status grossly normal <RITU Sutton - Last Filed: 05/15/22 18:25> Affect: normal affect <RITU Sutton - Last Filed: 05/15/22 18:25> Attitude: cooperative <RITU Sutton - Last Filed: 05/15/22 18:25> Thought process: Normal thought process present <RITU Sutton - Last Filed: 05/15/22 18:25> Thought content: Normal thought content present <RITU Sutton Last Filed: 05/15/22 18:25> Insight: Good insight present (Psych) <RITU Sutton - Last Filed: 05/15/22 18:25> Course Course Course Narrative: RME-14:20PM 71yoF with a PMHx of HTN, COPD STAGE IV, depression, permanent defibrillator who is presenting to the ER with complaints of blood on the white part of her eye that someone noticed at the grocery store earlier today. Patient reports she did not even notice she had this. She tried to go to an urgent care and they sent her here for further evaluation treatment. She denies any recent cough, change in vision, sneezing, trauma to the eye or any other symptoms complaints or concerns at this time. On exam it appears that patient has a subconjunctival hemorrhage. She will need a visual acuity and eye pressure check. Plan: patient sent to [facility] for further evaluation treatment. <RITU Edwards - Last Filed: 05/15/22 14:27> Medical Decision Making Medical Decision Making MDM Narrative: Patient is a 71 year old assigned female at with a history of COPD presenting to the emergency department today with left eye redness. Patient's physical exam showed bilateral normal eye pressures and an obvious left subconjunctival hemorrhage. I explained my physical exam findings as well as all test results to the patient. I answered all questions asked by the patient. I stressed the importance of the patient taking her medication as prescribed. I stressed the importance of the patient following up with her primary care provider. I stressed the importance of the patient returning to the emergency department immediately if her symptoms were to worsen or if she were to develop any dizziness, shortness of breath, difficulty breathing, chest pain, blurry vision, loss of vision, nausea, vomiting, abdominal pain, fever, chills, back pain, or any other complaints. Patient verbalized agreement and understanding with this treatment plan and discharge. <RITU Sutton - Last Filed: 05/15/22 18:25> Differential Diagnosis Differential Diagnoses: The differential diagnosis associated with the presentation includes <RITU Sutton Last Filed: 05/15/22 18:25> subconjunctival hemorrhage <RITU Sutton Last Filed: 05/15/22 18:25> Discharge Plan Discharge Clinical Impression: Subconjunctival hematoma <RITU Edwards Last Filed: 05/15/22 14:27> Patient Disposition: Home, Self-Care <RITU Edwards Last Filed: 05/15/22 14:27> Instructions: Subconjunctival Hemorrhage (ED) <RITU Edwards Last Filed: 05/15/22 14:27> Additional Instructions: Follow up with your primary care provider and an automotive product specialist. Return to the emergency department immediately if your symptoms worsen or if you develop any dizziness, shortness of breath, difficulty breathing, chest pain, blurry vision, loss of vision, nausea, vomiting, abdominal pain, fever, chills, back pain, or any other complaints. <RITU Edwards Last Filed: 05/15/22 14:27> Prescriptions: No Action albuterol sulfate 90 mcg/actuation HFA aerosol inhaler 2 puff inhalation Q6H PRN (Reason: for wheezing) Qty: 1 3RF Spiriva Respimat 2.5 mcg/actuation mist 2 puff inhalation DAILY 90 Days Qty: 3 3RF montelukast 10 mg tablet 10 mg PO BEDTIME Qty: 90 1RF roflumilast 250 mcg tablet 250 mcg PO DAILY Qty: 30 0RF ipratropium-albuterol 0.5 mg-3 mg(2.5 mg base)/3 mL solution for nebulization 1 vial inhalation QID trazodone 50 mg tablet 1 tab PO BEDTIME PRN (Reason: Sleep) duloxetine 30 mg capsule,delayed release(DR/EC) 30 mg PO BEDTIME duloxetine 60 mg capsule,delayed release(DR/EC) 60 mg PO BEDTIME loratadine 10 mg Tablet 10 mg PO DAILY Qty: 5 0RF amlodipine 5 mg tablet 5 mg PO BEDTIME atorvastatin 20 mg tablet 20 mg PO BEDTIME lorazepam 1 mg tablet 1 mg PO BEDTIME PRN azithromycin 250 mg tablet 250 mg PO 3XW 28 Days Qty: 12 1RF Rx Instructions: Take 1 tablet on Tuesday/Tuesday/Tuesday budesonide 0.25 mg/2 mL suspension for nebulization 0.5 mg inhalation DAILY (DME) nebulizers Misc See Rx Instructions .ROUTE Rx Instructions: As directed <RITU Edwards - Last Filed: 05/15/22 14:27> Referrals: Cheo Figueroa MD [Primary Care Provider] - Peng Hood [Physician] - (Call to establish and follow up with an automotive product specialist. ) <RITU Edwards - Last Filed: 05/15/22 14:27> Interventions: ED Discharge Assessment Last Done: 05/15/22 15:02 <RITU Edwards - Last Filed: 05/15/22 14:27> Discharge Date/Time: 05/15/22 15:03 <RITU Edwards - Last Filed: 05/15/22 14:27> Print Language: Grenadian <RITU Edwards - Last Filed: 05/15/22 14:27>
[2022-05-15 14:21] VITALS: BP 137/87; PULSE 80; RESP 18; TEMP 36.1; O2SAT 96; BMI 23.3
--- NOTE | 2022-05-15 14:30 | PC.NURSE ---
pt a&o x4 sts that she was in the [place] store when someone noticed her eye. at thAt time, pt saw that half of her left eye was bright red. pt endorces that the eye samson ache denies visual disturbance, has floaters at baseline
== END 2022-05-15 15:03 | disposition home or self-care (01) ==
PROVIDERS: Emergency Provider Student in an Organized Health Care Education/Training Program; PCP Internal Medicine
DX: H11.32 Conjunctival hemorrhage, left eye (principal)
CPT/HCPCS: 99282

== ENCOUNTER → 2022-06-25 13:02 | Outpatient (BNVA) | payer BC, SELFPAY | PROVIDERS: PCP Internal Medicine; Visit Provider Hospitalist | DX: Z13.89 Encounter for screening for other disorder (principal) ==

== ENCOUNTER 2022-10-04 14:26 | Outpatient (REF) | payer BC, SELFPAY ==
--- NOTE | ~2022-10-04 | XR_ITS ---
EXAMINATION: XR CHEST CLINICAL INFORMATION: COPD exacerbation COMPARISON: 03/22/2022 TECHNIQUE: 2 views of the chest were obtained. FINDINGS: No focal consolidation, pulmonary edema, or pleural effusion. Stable cardiomediastinal silhouette. Chronic left-sided rib fractures. Chest wall cardiac pacer with stable positioning of leads. XR/XR chest 2V IMPRESSION: No acute cardiopulmonary findings.
== END 2022-10-04 14:27 | disposition home or self-care (01) ==
LOC: HO.XRAY 14:26
PROVIDERS: PCP Internal Medicine; Visit Provider Hospitalist
DX: J44.1 Chronic obstructive pulmonary disease with (acute) exacerbation (principal); R06.00 Dyspnea, unspecified
CPT/HCPCS: 71046

== ENCOUNTER 2023-01-07 10:38 | Outpatient (AMB) | payer BC, SELFPAY ==
--- NOTE | 2023-01-07 10:39 | MHC.OFFVIS ---
Intake Vital Signs 01/07/23 10:40 Height 5 ft 5 in Weight 141 lb BMI 23.5 BP 130/70 Blood Pressure Location Rt brachial Position Sitting Pulse 72 Pulse Source Pulse Oximeter Pulse Oximetry (%) 97 Oxygen Delivery Method Room Air Intake Visit Reasons: copd Biztalk Developer Required: No Allergies hydrocodone [From Vicodin] Allergy (Mild, Verified 01/07/23 10:42) Rash HPI HPI Comments History of Present Illness Details The patient is a 72-year-old woman known COPD and chronic bronchitis. She has been doing very well. She has lost significant weight. She is active taking care of her grandchildren. Although she does not exercise regularly. She was started me that she did get a new treadmill and she used once. She had a room but in and the speed went up to 9 mph. She subsequently fell from and has not gone back on it. She will try again being careful not to speed up. She has not been using the Symbicort regularly. She only uses it once in a while. Explained to her she is better off and he is using it once a day. Also provided with rescue inhaler. She does have a hard time expectorating. She has had a history rib fractures and she does not want fracture of the rib. Because of her COPD and chronic bronchitis I believe a Acapella valve will be effective by allowing her to provide chest physical therapy. The patient is still participating in the lung cancer screening program at [facility]. 04/20/2022 the patient is here for a pulmonary follow-up visit. The patient is no better. She is actually getting worse. When I last saw her back in mid March she was having worsening respiratory symptoms after being discharged from the hospital. She was having significant wheezing and chest tightness. She was treated for bronchopneumonia and also for COPD exacerbation. Initially she was feeling better and she is actually settling down in getting to her baseline. Unfortunately though for the last week she started getting worse again. She denies any fevers or chills. Denies any sick contacts although she is not sure. She started developing worsening cough congested in nature with significant chest tightness and shortness of breath. In the office she was noted to be significantly wheezy. She will received 2 treatments with DuoNeb and also receive additional Solu-Medrol. I will send her another course of antibiotics and also prednisone to the pharmacy. In the meantime she is going to also have blood work to assess for other etiologies including a D-dimer. If her D-dimer is elevated then will have to assess for thromboembolic disease. Also during the visit we did go for 6 minutes walk test and the patient did desaturate down to 88% on room air with activity. She did well on 2 L pulse and therefore will go ahead and start her on oxygen as well. If her condition were to worsen she needs to go to the hospital for further care. 05/06/2022 the patient is here for a pulmonary follow-up visit. Overall she is feeling better. She finally completed a course of prednisone and also the Levaquin. Her cough is better. She still has some mucus production however. She still has some shortness of breath with activity. She continues use the oxygen with good effect. She continues use her respiratory therapy. Although, she is not using her nebulized therapy nor her budesonide. She did have blood work demonstrating again some degree of eosinophilia. I explained to her that the budesonide will be crucial in order for her to improve and decrease the inflammation of the airways in the mucus burden. Will also go ahead and place her on azithromycin to see if that also helps her chronic bronchitis. Overall the patient is doing better. 06/25/2022 the patient is here for hospital follow-up visit. She had worsening respiratory symptoms and shortness of breath she went to the ER. The patient was admitted and treated for COPD exacerbation. Now she is doing little better, but she is not back to her baseline as yet. Therefore will go ahead and extend her therapy. 10/04/2022 the patient is here for sick visit. She has worsening cough. She did complete a antibiotics in the prednisone that were given during her last visit. Although she is a little better the patient feels like her chest is more congested and she is still having hard time with breathing. Positive sick contacts. The patient does describe greenish phlegm. Denies any hemoptysis. Will go ahead and request a chest x-ray today. In the meantime will start on Levaquin and she will start another prednisone taper because of her ongoing wheezing. The patient does have an Acapella valve and she can use that for chest physical therapy. If the patient is no better her sputum culture will be important. 01/07/2023 the patient is here for pulmonary follow-up visit. She was seen back in October for sick visit. She was placed on prednisone antibiotics for suggestion of pneumonia. The patient however worsening she ended up going to the hospital briefly for a COPD exacerbation. She was subsequently discharged and she has felt well after that. She is back to her baseline. She is using oxygen with activity in using her respiratory medicines. Will provide her with the pneumonia vaccine today, Prevnar 20. She will return in 6 months with PFTs to address her respiratory capacity. [facility] Medical History (Updated 01/10/23 @ 19:26 by Neville Martínez MD) Depression On home oxygen therapy Hyperlipidemia Hypertension Anxiety COPD (chronic obstructive pulmonary disease) Social History Household Members: Family Housing: House Do you presently have visiting nurse or other home services: No Alcohol intake: never Patient Tobacco Use Status: Former Tobacco user Tobacco use type: Cigarette Years Smoked: 25 years service: No Current occupational status: retired Review of Systems Const Denies night sweats ENT Denies change in voice, Denies lip swelling, Denies mouth pain, Reports nasal congestion, Reports nasal discharge and Denies tongue swelling Card Denies chest pain, Denies dyspnea and Reports dyspnea on exertion Resp Denies change in phlegm color, Denies chest congestion, Reports cough, Denies hemoptysis, Denies dyspnea, Reports dyspnea on exertion and Reports wheezing GI Denies abdominal pain Musc Denies no additional complaints Neuro Denies Neuro-related abnormal movements Psych Denies no additional complaints Hair/Lymph Denies easy bleeding and Denies lymphadenopathy Aller/Immun Denies lip swelling, Denies tongue swelling and Reports wheezing Physical Exam Vital Signs: Last Vital Signs Pulse 72 01/07/23 10:40 BP 130/70 01/07/23 10:40 Pulse Ox 97 01/07/23 10:40 Oxygen Delivery Method Room Air 01/07/23 10:40 BMI result Body Mass Index 23.5 Const General: alert HEENT General nose exam: Abnormal external nose present and Nasal discharge present Eyes Pupils: Equal, round and reactive pupils present Neck Neck: Yes supple Chest Chest palpation & inspection: normal inspection of the chest Resp Effort & Inspection: normal respiratory effort and prolonged expiratory phase Auscultation: no crackles, no rhonchi, no wheezes and diminished lung sounds diffuse Cardio Rate: regular rate Rhythm: regular rhythm Heart sounds: S1 normal heart sound present and S2 normal heart sound present GI Palpation (GI): Soft to palpation and nontender Auscultation: normal bowel sounds General: Yes no CVA tenderness Back/Spine/Pelvis Back: no CVA tenderness Skin General skin exam: rashes and/or lesions noted Neuro Cranial nerves: Yes Equal, round and reactive pupils present Immunizations pneumoc 20-mauricio conj-dip cr(PF) 0.5 mL IM syringe Performing Provider: Neville Martínez MD Performing Location: [facility] [place] [facility] Administered by: Margarita Dowling LPN on 01/07/23 11:16 Dose Route Admin Location Dispensed Lot Number Expiration Date NDC Wardrobe Assistant 0.5 mL IM Left Deltoid 0.5 mL [id number] 02/02/24 4140-7424-44 [employer] VIS Given Date VIS Provided VIS Publication Date 01/07/23 Single Vaccine 22 Eligibility Eligibility Date Funding Source Not [facility] Eligible 01/07/23 Private Assessment & Plan Assessment & Plan (1) COPD (chronic obstructive pulmonary disease): Code(s): J44.9 - Chronic obstructive pulmonary disease, unspecified Qualifiers: COPD type: chronic bronchitis Chronic bronchitis type: mixed simple and mucopurulent Qualified Code(s): J41.8 - Mixed simple and mucopurulent chronic bronchitis (2) Dyspnea: Code(s): R06.00 - Dyspnea, unspecified Qualifiers: Dyspnea type: dyspnea on exertion Qualified Code(s): R06.09 - Other forms of dyspnea Plan continue Breo 100 continue oxygen with activity 2L/pulse Continue Duoneb QID as needed continue Daliresp 500 mcg stopped Azithromycin MWF PFTs F/U 3-4 months or sooner if not better Orders: Orders PFT pulmonary function test 01/07/23 J44.9 - Chronic obstructive pulmonary disease, unspecified Pneumococcal 20 Immunization 01/07/23 Z23 - Encounter for immunization Coding Level of Care Code Est Pt Level 4 (44545) Diagnoses Mixed simple and mucopurulent chronic bronchitis J41.8 COPD type: chronic bronchitis Chronic bronchitis type: mixed simple and mucopurulent Dyspnea on exertion R06.09 Dyspnea type: dyspnea on exertion Time Spent (min) 17
[2023-01-07 10:40] VITALS: BP 130/70; PULSE 72; O2SAT 97; BMI 23.5
== END 2023-01-07 11:15 | disposition home or self-care (01) ==
PROVIDERS: PCP Internal Medicine; Visit Provider Hospitalist
DX: J41.8 Mixed simple and mucopurulent chronic bronchitis (principal); R06.09 Other forms of dyspnea
CPT/HCPCS: 99214

== ENCOUNTER → 2023-01-07 10:38 | Outpatient (BNVA) | payer BC, SELFPAY | PROVIDERS: PCP Internal Medicine; Visit Provider Hospitalist | DX: J41.8 Mixed simple and mucopurulent chronic bronchitis (principal); R06.09 Other forms of dyspnea; Z99.81 Dependence on supplemental oxygen; Z79.899 Other long term (current) drug therapy; Z23 Encounter for immunization | CPT/HCPCS: 90471; 90677 ==

== ENCOUNTER 2023-02-23 10:30 | Outpatient (REF) | payer BC, SELFPAY ==
[2023-02-23 11:29] LABS: MANUAL DIFF FLAG NO
[2023-02-23 11:33] LABS: Venous Blood Gas Refer to POC result
[2023-02-23 11:34] LABS: VBG pCO2 55 mmHg; VBG pH 7.41 (7.32-7.43); VBG pO2 31 mmHg
[2023-02-23 11:35] LABS: VBG Base Excess 8.6 mmol/L; VBG HCO3 35 mmol/L (22-26)
[2023-02-23 12:09] LABS: Basophils Percent Auto 0.3 % (0-2); Eosinophils Absolute Auto 0.9 X10*3/uL (0.0-0.4); Eosinophils Percent Auto 9.5 % (0-4); Hematocrit 37.8 % (37.0-47.0); Hemoglobin 12.5 g/dl (12.0-16.0); Imm Gran Abs Auto 0.06 X10*3/uL (0.00-0.03); Imm Gran Pct Auto 0.7 % (0.0-0.4); Lymphocytes Percent Auto 22.1 % (20-40); Mean Corpuscular HGB Conc 33.1 g/dl (31.0-35.0); Mean Corpuscular Hemoglobin 28.7 pg (27.0-33.0); Mean Corpuscular Volume 86.9 fL (80.0-98.0); Mean Platelet Volume 9.7 fL (9.4-12.3); Monocytes Absolute Auto 0.9 X10*3/uL (0.1-1.2); Monocytes Percent Auto 9.9 % (2-11); Neutrophils Absolute Auto 5.2 x10*3/uL (2.0-8.3); Neutrophils Percent Auto 57.5 % (45-73); Platelet Count 205 X10*3/uL (160-400); Red Blood Count 4.35 X10*6/uL (4.20-5.50); Red Cell Distribution Width 12.3 % (11.0-16.0); White Blood Count 9.1 X10*3/uL (4.8-10.8)
[2023-02-23 12:56] LABS: Erythrocyte Sedimentation Rate 7 MM/HR (0-20)
[2023-02-28 23:48] LABS: Asperg fumigatus Precip Abs NEGATIVE (NEGATIVE); Micropoly faeni Abs NEGATIVE (NEGATIVE); Pigeon serum Abs NEGATIVE (NEGATIVE); Saccharo pora viridis Abs NEGATIVE (NEGATIVE); Thermo candidus Abs NEGATIVE (NEGATIVE); Thermoa vulgaris #1 NEGATIVE (NEGATIVE)
== END 2023-02-23 10:31 | disposition home or self-care (01) ==
LOC: HO.LAB 10:30
PROVIDERS: PCP Internal Medicine; Visit Provider Hospitalist
DX: R91.8 Other nonspecific abnormal finding of lung field (principal); J45.50 Severe persistent asthma, uncomplicated; R06.09 Other forms of dyspnea; J44.89 Other specified chronic obstructive pulmonary disease; T78.40XA Allergy, unspecified, initial encounter; Z87.891 Personal history of nicotine dependence
CPT/HCPCS: 36415; 82785; 82803; 85025; 85652; 86003; 86331; 86606; 86609

== ENCOUNTER 2023-02-23 10:30 | Outpatient (AMB) | payer BC, SELFPAY ==
[2023-02-23 10:36] VITALS: BP 120/60; PULSE 74; O2SAT 98; BMI 23.4
--- NOTE | 2023-02-23 10:36 | A.OFFVIS_ITS ---
Intake Vital Signs 02/23/23 10:36 Height 5 ft 5 in Weight 140 lb 14.006 oz BMI 23.4 BP 120/60 Blood Pressure Location Rt brachial Position Sitting Pulse 74 Pulse Source Pulse Oximeter Pulse Oximetry (%) 98 Oxygen Delivery Method Room Air Intake Visit Reasons: Hospital Follow Up/COPD Airline Pilot Flight Instructor Required: No Allergies hydrocodone [From Vicodin] Allergy (Mild, Verified 02/23/23 10:39) Rash HPI HPI Comments History of Present Illness Details The patient is a 72-year-old woman known asthma-COPD and chronic bronchitis. She has been doing very well. She has lost significant weight. She is active taking care of her grandchildren. Although she does not exercise regularly. She was started me that she did get a new treadmill and she used once. She had a room but in and the speed went up to 9 mph. She subsequently fell from and has not gone back on it. She will try again being careful not to speed up. She has not been using the Symbicort regularly. She only uses it once in a while. Explained to her she is better off and he is using it once a day. Also provided with rescue inhaler. She does have a hard time expectorating. She has had a history rib fractures and she does not want fracture of the rib. Because of her COPD and chronic bronchitis I believe a Acapella valve will be effective by allowing her to provide chest physical therapy. The patient is still participating in the lung cancer screening program at [facility]. 04/20/2022 the patient is here for a pulmonary follow-up visit. The patient is no better. She is actually getting worse. When I last saw her back in mid March she was having worsening respiratory symptoms after being discharged from the hospital. She was having significant wheezing and chest tightness. She was treated for bronchopneumonia and also for COPD exacerbation. Initially she was feeling better and she is actually settling down in getting to her baseline. Unfortunately though for the last week she started getting worse again. She denies any fevers or chills. Denies any sick contacts although she is not sure. She started developing worsening cough congested in nature with significant chest tightness and shortness of breath. In the office she was noted to be significantly wheezy. She will received 2 treatments with DuoNeb and also receive additional Solu-Medrol. I will send her another course of antibiotics and also prednisone to the pharmacy. In the meantime she is going to also have blood work to assess for other etiologies including a D-dimer. If her D-dimer is elevated then will have to assess for thromboembolic disease. A lso during the visit we did go for 6 minutes walk test and the patient did desaturate down to 88% on room air with activity. She did well on 2 L pulse and therefore will go ahead and start her on oxygen as well. If her condition were to worsen she needs to go to the hospital for further care. 05/06/2022 the patient is here for a pulmonary follow-up visit. Overall she is feeling better. She finally completed a course of prednisone and also the Levaquin. Her cough is better. She still has some mucus production however. She still has some shortness of breath with activity. She continues use the oxygen with good effect. She continues use her respiratory therapy. Although, she is not using her nebulized therapy nor her budesonide. She did have blood work demonstrating again some degree of eosinophilia. I explained to her that the budesonide will be crucial in order for her to improve and decrease the inflammation of the airways in the mucus burden. Will also go ahead and place her on azithromycin to see if that also helps her chronic bronchitis. Overall the patient is doing better. 06/25/2022 the patient is here for hospital follow-up visit. She had worsening respiratory symptoms and shortness of breath she went to the ER. The patient was admitted and treated for COPD exacerbation. Now she is doing little better, but she is not back to her baseline as yet. Therefore will go ahead and extend her therapy. 10/04/2022 the patient is here for sick visit. She has worsening cough. She did complete a antibiotics in the prednisone that were given during her last visit. Although she is a little better the patient feels like her chest is more congested and she is still having hard time with breathing. Positive sick contacts. The patient does describe greenish phlegm. Denies any hemoptysis. Will go ahead and request a chest x-ray today. In the meantime will start on Levaquin and she will start another prednisone taper because of her ongoing wheezing. The patient does have an Acapella valve and she can use that for chest physical therapy. If the patient is no better her sputum culture will be important. 01/07/2023 the patient is here for pulmonary follow-up visit. She was seen back in October for sick visit. She was placed on prednisone antibiotics for suggestion of pneumonia. The patient however worsening she ended up going to the hospital briefly for a COPD exacerbation. She was subsequently discharged and she has felt well after that. She is back to her baseline. She is using oxygen with activity in using her respiratory medicines. Will provide her with the pneumonia vaccine today, Prevnar 20. She will return in 6 months with PFTs to address her respiratory capacity. 02/23/2023 the patient is here for a hospital follow-up visit. The patient was briefly hospitalized at [facility] with respiratory symptoms. She she was briefly admitted to the hospital was diagnosed with a COPD exacerbation. She did have blood work demonstrating an elevated eosinophil count of 1700 and also 1100 which is significantly elevated. On further questioning the patient does have a history of asthma. The patient appears to have a allergic asthma phenotype that is progressed more to and asthma COPD overlap syndrome. She has been on multiple courses of prednisone. The patient still having some wheezing and some shortness of breath at this time. [id number] severity. Will go ahead and start her on low-dose of prednisone. She will benefit from starting Dupixent in view of her significant eosinophilia and allergic phenotype. The patient will continue with respiratory therapy with frequent nebulizer treatments. She also continues with the oxygen with activity. We did review her chest x-ray that she had a [facility] demonstrating no acute disease although significant hyperinflation. The patient also has a CT scan that we did review but from 2020. She will go ahead and have blood work done including allergy testing. Will recheck her eosinophils after the course of prednisone. The patient is off antibiotics at this time. She will continue the Daliresp at this time. Also to note she did have an elevated brain x-ray peptide while a [facility]. She is at risk of developing cor pulmonale. Will go ahead and request an echocardiogram at this time. [facility] Medical History (Updated 02/26/23 @ 18:38 by Neville Martínez MD) Asthma-COPD overlap syndrome Asthma Allergies Depression On home oxygen therapy Hyperlipidemia Hypertension Anxiety COPD (chronic obstructive pulmonary disease) Household Members: Family Housing: House Do you presently have visiting nurse or other home services: No Alcohol intake: never Patient Tobacco Use Status: Former Tobacco user Tobacco use type: Cigarette Years Smoked: 25 years service: No Current occupational status: retired Review of Systems Const Denies night sweats ENT Denies change in voice, Denies lip swelling, Denies mouth pain, Reports nasal congestion, Reports nasal discharge and Denies tongue swelling Card Denies chest pain, Denies dyspnea and Reports dyspnea on exertion Resp Denies change in phlegm color, Reports chest congestion, Reports cough, Denies hemoptysis, Denies dyspnea, Reports dyspnea on exertion and Reports wheezing GI Denies abdominal pain Musc Denies no additional complaints Neuro Denies Neuro-related abnormal movements Psych Denies no additional complaints Hair/Lymph Denies easy bleeding and Denies lymphadenopathy Aller/Immun Denies lip swelling, Denies tongue swelling and Reports wheezing Physical Exam Vital Signs: Last Vital Signs Pulse 74 02/23/23 10:36 BP 120/60 02/23/23 10:36 Pulse Ox 98 02/23/23 10:36 Oxygen Delivery Method Room Air 02/23/23 10:36 BMI result Body Mass Index 23.4 Const General: alert HEENT General nose exam: Abnormal external nose present and Nasal discharge present Eyes Pupils: Equal, round and reactive pupils present Neck Neck: Yes supple Chest Chest palpation & inspection: normal inspection of the chest Resp Effort & Inspection: normal respiratory effort and prolonged expiratory phase Auscultation: no crackles, no rhonchi, wheezes and diminished lung sounds diffuse Cardio Rate: regular rate Rhythm: regular rhythm Heart sounds: S1 normal heart sound present and S2 normal heart sound present GI Palpation (GI): Soft to palpation and nontender Auscultation: normal bowel sounds General: Yes no CVA tenderness Back/Spine/Pelvis Back: no CVA tenderness Skin General skin exam: rashes and/or lesions noted Neuro Cranial nerves: Yes Equal, round and reactive pupils present Results Reviewed Results Reviewed: personally reviewed CXR and CT chest personally reviewed bloodwork Assessment & Plan Assessment & Plan (1) Asthma: Code(s): J45.909 - Unspecified asthma, uncomplicated Qualifiers: Asthma severity: severe Asthma persistence: persistent Asthma complication type: uncomplicated Qualified Code(s): J45.50 - Severe persistent asthma, uncomplicated (2) Dyspnea: Code(s): R06.00 - Dyspnea, unspecified Qualifiers: Dyspnea type: dyspnea on exertion Qualified Code(s): R06.09 - Other forms of dyspnea (3) Asthma-COPD overlap syndrome: Code(s): J44.89 - Other specified chronic obstructive pulmonary disease Plan continue Breo 100 continue oxygen with activity 2L/pulse Continue Duoneb QID as needed continue Daliresp 500 mcg start prednisone 10mg daily Bloodwork start Dupixent ECHO F/U 3-4 months or sooner if not better Orders: Orders Complete Blood Count Auto Diff 02/23/23 J45.909 - Unspecified asthma, uncomplicated, T78.40XA - Allergy, unspecified, initial encounter Erythrocyte Sedimentation Rate 02/23/23 J45.909 - Unspecified asthma, uncomplicated, T78.40XA - Allergy, unspecified, initial encounter CA echo transthoracic complete 02/23/23 I27.20 - Pulmonary hypertension, unspecified Hypersensitive Pneumonitis Prf 02/23/23 J45.909 - Unspecified asthma, uncomplicated, R91.8 - Other nonspecific abnormal finding of lung field, T78.40XA - Allergy, unspecified, initial encounter Rast Allergen 02/23/23 J45.909 - Unspecified asthma, uncomplicated, T78.40XA - Allergy, unspecified, initial encounter Venous Blood Gas 02/23/23 J45.909 - Unspecified asthma, uncomplicated, T78.40XA - Allergy, unspecified, initial encounter Medications: New prednisone 10 mg PO DAILY 30 days 30 tabs 3RF Coding Level of Care Code Est Pt Level 5 (38380) Diagnoses Severe persistent asthma without complication J45.50 Asthma severity: severe Asthma persistence: persistent Asthma complication type: uncomplicated Dyspnea on exertion R06.09 Dyspnea type: dyspnea on exertion Asthma-COPD overlap syndrome J44.89 Time Spent (min) 35
== END 2023-02-23 11:07 | disposition home or self-care (01) ==
PROVIDERS: PCP Internal Medicine; Visit Provider Hospitalist
DX: J45.50 Severe persistent asthma, uncomplicated (principal)
CPT/HCPCS: 99214

== ENCOUNTER → 2023-03-22 10:00 | Outpatient (REF) | payer BC, SELFPAY ==
--- NOTE | 2023-03-22 10:02 | CA_ITS ---
Transthoracic Echocardiogram Patient (Last, First, Middle): Mouna Valladares M Gender: Female Date of : 1950 Age: 72 Procedure Date: 03/22/2023 Procedure Type: Transthoracic Echocardiogram Location: OP Height: 165.1 cm Weight: 63.5 kg BSA: 1.70 m2 Heart Rate: bpm BP: 120 / 58 mmHg Programming Coordinator: MARIAN/MARYA Referring MD: Neville Martínez MD Compressor Station Chief Engineer: Yadiel Jacob MD Symptoms: I27.20 - Pulmonary hypertension, unspecified Study Quality: Adequate ECG Rhythm: Sinus Conclusions: - 1. Normal LV ejection fraction 60 65% with impaired relaxation filling pattern 2. Mildly dilated left atrium 3. Mild mitral and [id number] tricuspid regurgitation 4. Normal RV systolic pressure 5. No gross pericardial effusion Findings Left Ventricle Normal left ventricular size, thickness, and systolic function. The visually estimated ejection fraction is between 60-65%. Spectral Doppler is indicative of an impaired relaxation filling pattern. E/E prime ratio is between 8 and 15 consistent with indeterminate filling pressures. possible basal inferior hypokinesis Right Ventricle Normal right ventricular cavity size and systolic function. There is a pacemaker wire seen in the right ventricle. Atria The left atrium is mildly dilated. Interatrial shunt cannot be excluded. The right atrium is likely dilated. A pacemaker wire is identified in the right atrium. Aortic Valve There is mild calcification of the aortic valve. There is no aortic valve stenosis. There is no aortic valve regurgitation. Mitral Valve Normal mitral valve structure and function. There is mild mitral valve regurgitation. There is no mitral valve stenosis. Pulmonic Valve The pulmonic valve is likely normal. There is trace pulmonic valve regurgitation. Tricuspid Valve Normal tricuspid valve structure. There is mild to moderate tricuspid valve regurgitation. The right ventricular systolic pressure is normal. The right ventricular systolic pressure is 28 mmHg. Normal right atrial pressure. There is no evidence of pulmonary hypertension. Great Vessels All visible segments of the aorta are normal in size. The pulmonary artery was not well visualized. Venous The inferior vena cava is normal in size and collapses greater than 50% with inspiration. Pericardium/Pleural There is no evidence of pericardial effusion. Prior Study Comparison No prior study available for comparison. Measurements 2D Linear Measurements IVSd: 1.31 0.6-0.9/0.6-1.0 cm LVIDd: 4.14 3.9-5.3/4.2-5.9 cm LVIDd Index: 2.44 2.4-3.2/2.2-3.1 cm/m2 LVIDs: 2.64 2.0-3.6 cm LVPWd: 0.85 0.7-1.1 cm LA Diam: 3.60 2.7-3.8/3.0-4.0 cm LAIDs Index: 2.12 1.5-2.3 cm/m2 LV Mass: 186.38 67-162/88-224 g LV Mass Index: 109.63 43-95/49-115 g/m2 LVOT Diam: 2.20 3.0+(-)1.3 cm Mitral Valve MV Pk E: 0.78 MV PK A: 0.92 MV Decel Time: 208.00 E/A: 0.80 E'Lateral: 7.29 E'Medial: 6.20 E/E' Med: 12.60 E/E' Lat: 10.70 PHT: 61.00 MVA PHT: 3.61 Decel Randall: 3.74 Aortic Valve AoV Pk Daniel: 1.45 AoV Mn Daniel: 0.85 AoV VTI: 0.31 AoV Pk Grad: 8.00 Aov Mn Grad: 4.00 LVOT LVOT Diam: 2.20 LVOT Area: 3.80 Diastolic Function MV Pk E: 0.78 MV Pk A: 0.92 E/A: 0.80 E'Medial: 6.20 E/E' Med: 12.60 E' Laterial: 7.29 E/E' Lat: 10.70 Right Ventricle TAPSE (mm): 23.60 Tricuspid Valve TR Pk Daniel: 2.51 TR Pk Grad: 25.00 RA Press: 3.00 RVSP: 28.00 Great Vessels Aorta Sinus of Valsalva: 3.20 2.0-3.5 cm Ao Asc: 3.40 2.1-3.4 cm Pulmonary Valve PV Pk Daniel: 0.73 Peak PV Grad: 2.00 Updated in Other Vendor System with Status of Final Yadiel Jacob MD electronically signed on 03/23/2023 5:06:36 PM with status of Final
== END ==
LOC: HO.CARD 10:00
PROVIDERS: PCP Internal Medicine; Visit Provider Hospitalist
DX: I27.20 Pulmonary hypertension, unspecified (principal)
CPT/HCPCS: 93306

== ENCOUNTER → 2023-03-22 10:02 | Outpatient (BNV) | payer BC, SELFPAY | PROVIDERS: PCP Internal Medicine; Visit Provider Internal Medicine Cardiovascular Disease | DX: I36.1 Nonrheumatic tricuspid (valve) insufficiency (principal); I34.0 Nonrheumatic mitral (valve) insufficiency | CPT/HCPCS: 93306 ==

== ENCOUNTER 2023-04-07 10:29 | Outpatient (AMB) | payer BC, SELFPAY ==
--- NOTE | 2023-04-07 10:36 | MHC.OFFVIS ---
Intake Vital Signs 04/07/23 10:37 Height 5 ft 5 in BMI Reason not done Patient refused/unable BP 124/60 Blood Pressure Location Rt brachial Position Sitting Pulse 87 Pulse Source Pulse Oximeter Pulse Oximetry (%) 95 Oxygen Delivery Method Room Air Intake Visit Reasons: COPD Front Office Assistant Required: No Allergies hydrocodone [From Vicodin] Allergy (Mild, Verified 04/07/23 10:36) Rash HPI HPI Comments History of Present Illness Details The patient is a 72-year-old woman known asthma-COPD and chronic bronchitis. She has been doing very well. She has lost significant weight. She is active taking care of her grandchildren. Although she does not exercise regularly. She was started me that she did get a new treadmill and she used once. She had a room but in and the speed went up to 9 mph. She subsequently fell from and has not gone back on it. She will try again being careful not to speed up. She has not been using the Symbicort regularly. She only uses it once in a while. Explained to her she is better off and he is using it once a day. Also provided with rescue inhaler. She does have a hard time expectorating. She has had a history rib fractures and she does not want fracture of the rib. Because of her COPD and chronic bronchitis I believe a Acapella valve will be effective by allowing her to provide chest physical therapy. The patient is still participating in the lung cancer screening program at [facility]. 04/20/2022 the patient is here for a pulmonary follow-up visit. The patient is no better. She is actually getting worse. When I last saw her back in mid March she was having worsening respiratory symptoms after being discharged from the hospital. She was having significant wheezing and chest tightness. She was treated for bronchopneumonia and also for COPD exacerbation. Initially she was feeling better and she is actually settling down in getting to her baseline. Unfortunately though for the last week she started getting worse again. She denies any fevers or chills. Denies any sick contacts although she is not sure. She started developing worsening cough congested in nature with significant chest tightness and shortness of breath. In the office she was noted to be significantly wheezy. She will received 2 treatments with DuoNeb and also receive additional Solu-Medrol. I will send her another course of antibiotics and also prednisone to the pharmacy. In the meantime she is going to also have blood work to assess for other etiologies including a D-dimer. If her D-dimer is elevated then will have to assess for thromboembolic disease. Also during the visit we did go for 6 minutes walk test and the patient did desaturate down to 88% on room air with activity. She did well on 2 L pulse and therefore will go ahead and start her on oxygen as well. If her condition were to worsen she needs to go to the hospital for further care. 05/06/2022 the patient is here for a pulmonary follow-up visit. Overall she is feeling better. She finally completed a course of prednisone and also the Levaquin. Her cough is better. She still has some mucus production however. She still has some shortness of breath with activity. She continues use the oxygen with good effect. She continues use her respiratory therapy. Although, she is not using her nebulized therapy nor her budesonide. She did have blood work demonstrating again some degree of eosinophilia. I explained to her that the budesonide will be crucial in order for her to improve and decrease the inflammation of the airways in the mucus burden. Will also go ahead and place her on azithromycin to see if that also helps her chronic bronchitis. Overall the patient is doing better. 06/25/2022 the patient is here for hospital follow-up visit. She had worsening respiratory symptoms and shortness of breath she went to the ER. The patient was admitted and treated for COPD exacerbation. Now she is doing little better, but she is not back to her baseline as yet. Therefore will go ahead and extend her therapy. 10/04/2022 the patient is here for sick visit. She has worsening cough. She did complete a antibiotics in the prednisone that were given during her last visit. Although she is a little better the patient feels like her chest is more congested and she is still having hard time with breathing. Positive sick contacts. The patient does describe greenish phlegm. Denies any hemoptysis. Will go ahead and request a chest x-ray today. In the meantime will start on Levaquin and she will start another prednisone taper because of her ongoing wheezing. The patient does have an Acapella valve and she can use that for chest physical therapy. If the patient is no better her sputum culture will be important. 01/07/2023 the patient is here for pulmonary follow-up visit. She was seen back in October for sick visit. She was placed on prednisone antibiotics for suggestion of pneumonia. The patient however worsening she ended up going to the hospital briefly for a COPD exacerbation. She was subsequently discharged and she has felt well after that. She is back to her baseline. She is using oxygen with activity in using her respiratory medicines. Will provide her with the pneumonia vaccine today, Prevnar 20. She will return in 6 months with PFTs to address her respiratory capacity. 02/23/2023 the patient is here for a hospital follow-up visit. The patient was briefly hospitalized at [facility] with respiratory symptoms. She she was briefly admitted to the hospital was diagnosed with a COPD exacerbation. She did have blood work demonstrating an elevated eosinophil count of 1700 and also 1100 which is significantly elevated. On further questioning the patient does have a history of asthma. The patient appears to have a allergic asthma phenotype that is progressed more to and asthma COPD overlap syndrome. She has been on multiple courses of prednisone. The patient still having some wheezing and some shortness of breath at this time. [id number] severity. Will go ahead and start her on low-dose of prednisone. She will benefit from starting Dupixent in view of her significant eosinophilia and allergic phenotype. The patient will continue with respiratory therapy with frequent nebulizer treatments. She also continues with the oxygen with activity. We did review her chest x-ray that she had a [facility] demonstrating no acute disease although significant hyperinflation. The patient also has a CT scan that we did review but from 2020. She will go ahead and have blood work done including allergy testing. Will recheck her eosinophils after the course of prednisone. The patient is off antibiotics at this time. She will continue the Daliresp at this time. Also to note she did have an elevated brain x-ray peptide while a [facility]. She is at risk of developing cor pulmonale. Will go ahead and request an echocardiogram at this time. 04/07/2023 the patient is here for a pulmonary follow-up visit. The patient overall continues to have a productive cough. The cough is now tenacious yellowish-green in color. It is difficult to expectorate at times. Moderate severity. Complains of shortness of breath and wheezing. She did complete the antibiotics in the prednisone recently. It was only partially helpful. We also did request an echocardiogram. No evidence of any cor pulmonale. She does have significant eosinophilia and therefore has a component of eosinophilic bronchitis. The patient will benefit from biologic therapy such as Dupixent. However, the insurance company denied access to that medication. Therefore will place her back on prednisone and also will get a sputum culture. She continues use her respiratory therapy. She continues have sick contacts and she is bringing up her grandchildren. Therefore, the sputum culture should help us make sure that we can clear any ongoing infections. The patient says she cultures not helpful if she continues to be symptomatic even after her 3rd course of antibiotics and will request a bronchoscopy to be performed. [facility] Medical History (Updated 04/07/23 @ 12:36 by Neville Martínez MD) Asthma-COPD overlap syndrome Asthma Allergies Depression On home oxygen therapy Hyperlipidemia Hypertension Anxiety COPD (chronic obstructive pulmonary disease) Social History Household Members: Family Housing: House Do you presently have visiting nurse or other home services: No Alcohol intake: never Patient Tobacco Use Status: Former Tobacco user Tobacco use type: Cigarette Years Smoked: 25 years service: No Current occupational status: retired Review of Systems Const Denies night sweats ENT Denies change in voice, Denies lip swelling, Denies mouth pain, Reports nasal congestion, Reports nasal discharge and Denies tongue swelling Card Denies chest pain, Denies dyspnea and Reports dyspnea on exertion Resp Reports change in phlegm color, Reports chest congestion, Reports cough, Denies hemoptysis, Denies dyspnea, Reports dyspnea on exertion and Reports wheezing GI Denies abdominal pain Musc Denies no additional complaints Neuro Denies Neuro-related abnormal movements Psych Denies no additional complaints Hair/Lymph Denies easy bleeding and Denies lymphadenopathy Aller/Immun Denies lip swelling, Denies tongue swelling and Reports wheezing Physical Exam Vital Signs: Last Vital Signs Pulse 87 04/07/23 10:37 BP 124/60 04/07/23 10:37 Pulse Ox 95 04/07/23 10:37 Oxygen Delivery Method Room Air 04/07/23 10:37 Const General: alert HEENT General nose exam: Abnormal external nose present and Nasal discharge present Eyes Pupils: Equal, round and reactive pupils present Neck Neck: Yes supple Chest Chest palpation & inspection: normal inspection of the chest Resp Effort & Inspection: normal respiratory effort and prolonged expiratory phase Auscultation: no crackles, no rhonchi, wheezes and diminished lung sounds diffuse Cardio Rate: regular rate Rhythm: regular rhythm Heart sounds: S1 normal heart sound present and S2 normal heart sound present GI Palpation (GI): Soft to palpation and nontender Auscultation: normal bowel sounds General: Yes no CVA tenderness Back/Spine/Pelvis Back: no CVA tenderness Skin General skin exam: rashes and/or lesions noted Neuro Cranial nerves: Yes Equal, round and reactive pupils present Assessment & Plan Assessment & Plan (1) Asthma: Code(s): J45.909 - Unspecified asthma, uncomplicated Qualifiers: Asthma complication type: with acute exacerbation Asthma persistence: persistent Asthma severity: severe Qualified Code(s): J45.51 - Severe persistent asthma with (acute) exacerbation (2) Dyspnea: Code(s): R06.00 - Dyspnea, unspecified Qualifiers: Dyspnea type: dyspnea on exertion Qualified Code(s): R06.09 - Other forms of dyspnea (3) Asthma-COPD overlap syndrome: Code(s): J44.89 - Other specified chronic obstructive pulmonary disease Plan sputum cx consider bronchoscopy start Augmentin continue Breo 100 continue oxygen with activity 2L/pulse Continue Duoneb QID as needed continue Daliresp 500 mcg F/U 6 weeks Orders: Orders Sputum Cult + Gram stain Today J44.89 - Other specified chronic obstructive pulmonary disease Medications: New amoxicillin-pot clavulanate 875-125 mg 1 tab PO BID 14 days 28 tabs 0RF prednisone PO daily; Take 2 tabs daily x 7 days, then 1 tab daily x 7 days 18 days 63 tabs 0RF Refilled benzonatate 200 mg PO BID 30 days PRN 60 caps 3RF cough Coding Level of Care Code Est Pt Level 4 (74180) Diagnoses Severe persistent asthma with acute exacerbation J45.51 Asthma complication type: with acute exacerbation Asthma persistence: persistent Asthma severity: severe Dyspnea on exertion R06.09 Dyspnea type: dyspnea on exertion Asthma-COPD overlap syndrome J44.89 Time Spent (min) 17
[2023-04-07 10:37] VITALS: BP 124/60; PULSE 87; O2SAT 95
== END 2023-04-07 11:06 | disposition home or self-care (01) ==
PROVIDERS: PCP Internal Medicine; Visit Provider Hospitalist
DX: J45.51 Severe persistent asthma with (acute) exacerbation (principal); R06.09 Other forms of dyspnea; J44.89 Other specified chronic obstructive pulmonary disease
CPT/HCPCS: 99214

== ENCOUNTER 2023-04-07 10:29 | Outpatient (REF) | payer BC, SELFPAY | END 2023-04-07 10:30 | disposition home or self-care (01) | LOC: HO.LNP 10:29 | PROVIDERS: PCP Internal Medicine; Visit Provider Hospitalist | DX: J45.51 Severe persistent asthma with (acute) exacerbation (principal); R06.09 Other forms of dyspnea; J44.89 Other specified chronic obstructive pulmonary disease | CPT/HCPCS: 87070; 87205 ==

== ENCOUNTER 2023-05-18 10:04 | Outpatient (REF) | payer BC, SELFPAY ==
[2023-05-18 11:16] LABS: MANUAL DIFF FLAG NO
[2023-05-18 11:20] LABS: Basophils Percent Auto 0.5 % (0-2); Eosinophils Absolute Auto 0.8 X10*3/uL (0.0-0.4); Eosinophils Percent Auto 10.3 % (0-4); Hematocrit 39.8 % (37.0-47.0); Hemoglobin 13.1 g/dl (12.0-16.0); Imm Gran Abs Auto 0.01 X10*3/uL (0.00-0.03); Imm Gran Pct Auto 0.1 % (0.0-0.4); Lymphocytes Absolute Auto 1.8 X10*3/uL (1.2-4.9); Lymphocytes Percent Auto 24.4 % (20-40); Mean Corpuscular HGB Conc 32.9 g/dl (31.0-35.0); Mean Corpuscular Hemoglobin 28.8 pg (27.0-33.0); Mean Corpuscular Volume 87.5 fL (80.0-98.0); Mean Platelet Volume 9.3 fL (9.4-12.3); Monocytes Absolute Auto 0.7 X10*3/uL (0.1-1.2); Monocytes Percent Auto 8.9 % (2-11); Neutrophils Absolute Auto 4.1 x10*3/uL (2.0-8.3); Neutrophils Percent Auto 55.8 % (45-73); Platelet Count 222 X10*3/uL (160-400); Red Blood Count 4.55 X10*6/uL (4.20-5.50); Red Cell Distribution Width 12.9 % (11.0-16.0); White Blood Count 7.4 X10*3/uL (4.8-10.8)
[2023-05-18 11:24] LABS: VBG pCO2 51 mmHg; VBG pH 7.39 (7.32-7.43); VBG pO2 28 mmHg
[2023-05-18 11:25] LABS: VBG Base Excess 5.2 mmol/L; VBG HCO3 31 mmol/L (22-26); Venous Blood Gas Refer to POC result
[2023-05-18 11:36] LABS: Anion Gap 10 (12-20); Blood Urea Nitrogen 28 mg/dL (9-16); Calcium 9.4 mg/dL (8.4-10.2); Carbon Dioxide 29 mmol/L (22-29); Chloride 108 mmol/L (96-108); Estimated Glomerular Filt Rate > 60; Glucose Random 75 mg/dL (60-115); Potassium 4.3 mmol/L (3.3-5.1); Sodium 143 mmol/L (135-145)
[2023-05-19 14:48] LABS: Immunoglobulin E 100 kU/L (<OR=114)
== END 2023-05-18 10:05 | disposition home or self-care (01) ==
LOC: HO.LAB 10:04
PROVIDERS: PCP Internal Medicine; Visit Provider Hospitalist
DX: J44.89 Other specified chronic obstructive pulmonary disease (principal); J45.51 Severe persistent asthma with (acute) exacerbation; J96.11 Chronic respiratory failure with hypoxia; J96.12 Chronic respiratory failure with hypercapnia
CPT/HCPCS: 36415; 80048; 82785; 82803; 85025

== ENCOUNTER 2023-05-18 10:04 | Outpatient (AMB) | payer BC, SELFPAY ==
[2023-05-18 10:17] VITALS: BP 128/70; PULSE 89; O2SAT 94; BMI 23.4
--- NOTE | 2023-05-18 10:17 | A.OFFVIS_ITS ---
Intake Vital Signs 05/18/23 10:17 Height 5 ft 5 in Weight 140 lb 14.006 oz BMI 23.4 BP 128/70 Blood Pressure Location Rt brachial Position Sitting Pulse 89 Pulse Source Pulse Oximeter Pulse Oximetry (%) 94 Oxygen Delivery Method Room Air Intake Visit Reasons: copd:4 month f/u [employer] Required: No Allergies hydrocodone [From Vicodin] Allergy (Mild, Verified 05/18/23 10:20) Rash HPI HPI Comments History of Present Illness Details The patient is a 72-year-old woman known asthma-COPD and chronic bronchitis. She has been doing very well. She has lost significant weight. She is active taking care of her grandchildren. Although she does not exercise regularly. She was started me that she did get a new treadmill and she used once. She had a room but in and the speed went up to 9 mph. She subsequently fell from and has not gone back on it. She will try again being careful not to speed up. She has not been using the Symbicort regularly. She only uses it once in a while. Explained to her she is better off and he is using it once a day. Also provided with rescue inhaler. She does have a hard time expectorating. She has had a history rib fractures and she does not want fracture of the rib. B ecause of her COPD and chronic bronchitis I believe a Acapella valve will be effective by allowing her to provide chest physical therapy. The patient is still participating in the lung cancer screening program at [facility]. 04/20/2022 the patient is here for a pulm onary follow-up visit. The patient is no better. She is actually getting worse. When I last saw her back in mid March she was having worsening respiratory symptoms after being discharged from the hospital. She was having significant wheezing and chest tightness. She was treated for bronchopneumonia and also for COPD exacerbation. Initially she was feeling better and she is actually settling down in getting to her baseline. Unfortunately though for the last week she started getting worse again. She denies any fevers or chills. Denies any sick contacts although she is not sure. She started developing worsening cough congested in nature with significant chest tightness and shortness of breath. In the office she was noted to be significantly wheezy. She will received 2 treatments with DuoNeb and also receive additional Solu-Medrol. I will send her another course of antibiotics and also prednisone to the pharmacy. In the meantime she is going to also have blood work to assess for other etiologies including a D-dimer. If her D-dimer is elevated then will have to assess for thromboembolic disease. Also during the visit we did go for 6 minutes walk test and the patient did desaturate down to 88% on room air with activity. She did well on 2 L pulse and therefore will go ahead and start her on oxygen as well. If her condition were to worsen she needs to go to the hospital for further care. 05/06/2022 the patient is here for a pulmo dick follow-up visit. Overall she is feeling better. She finally completed a course of prednisone and also the Levaquin. Her cough is better. She still has some mucus production however. She still has some shortness of breath with activity. She continues use the oxygen with good effect. She continues use her respiratory therapy. Although, she is not using her nebulized therapy nor her budesonide. She did have blood work demonstrating again some degree of eosinophilia. I explained to her that the budesonide will be crucial in order for her to improve and decrease the inflammation of the airways in the mucus burden. Will also go ahead and place h er on azithromycin to see if that also helps her chronic bronchitis. Overall the patient is doing better. 06/25/2022 the patient is here for [facility] follow-up visit. She had worsening respiratory symptoms and shortness of breath she went to the ER. The patient was admitted and treated for COPD exacerbation. Now she is doing little better, but she is not back to her baseline as yet. Therefore will go ahead and extend her therapy. 10/04/2022 the patient is here for sick vi sit. She has worsening cough. She did complete a antibiotics in the prednisone that were given during her last visit. Although she is a little better the patient feels like her chest is more congested and she is still having hard time with breathing. Positive sick contacts. The patient does describe greenish phlegm. Denies any hemoptysis. Will go ahead and request a chest x-ray today. In the meantime will start on Levaquin and she will start another prednisone taper because of her ongoing wheezing. The patient does have an Acapella valve and she can use that for chest physical therapy. If the patient is no better her sputum culture will be important. 01/07/2023 the patient is here for pulmon susana follow-up visit. She was seen back in October for sick visit. She was placed on prednisone antibiotics for suggestion of pneumonia. The patient however worsening she ended up going to the hospital briefly for a COPD exacerbation. She was subsequently discharged and she has felt well after that. She is back to her baseline. She is using oxygen with activity in using her respiratory medicines. Will provide her with the pneumonia vaccine today, Prevnar 20. She will return in 6 months with PFTs to address her respiratory capacity. 02/23/2023 the patient is here for a [facility] follow-up visit. The patient was briefly hospitalized at [facility] with respiratory symptoms. She she was briefly admitted to the hospital was diagnosed with a COPD exacerbation. She did have blood work demonstrating an elevated eosinophil count of 1700 and also 1100 which is significantly elevated. On further questioning the patient does have a history of asthma. The patient appears to have a allergic asthma phenotype that is progressed more to and asthma COPD overlap syndrome. She has been on multiple courses of prednisone. The patient still having some wheezing and some shortness of breath at this time. [id number]-[id number] severity. Will go ahead and start her on low-dose of prednisone. She will benefit from starting Dupixent in view of her significant eosinophilia and allergic phenotype. The patient will continue with respiratory therapy with frequent nebulizer treatments. She also continues with the oxygen with activity. We did review her chest x-ray that she had a [facility] demonstrating no acute disease although significant hyperinflation. The patient also has a CT scan that we did review but from 2020. She will go ahead and have blood work done including allergy testing. Will recheck her eosinophils after the course of prednisone. The patient is off antibiotics at this time. She will continue the Daliresp at this time. Also to note she did have an elevated brain x-ray peptide while a [facility]. She is at risk of developing cor pulmonale. Will go ahead and request an echocardiogram at this time. 04/07/2023 the patient is here for a pulmo dick follow-up visit. The patient overall continues to have a productive cough. The cough is now tenacious yellowish-green in color. It is difficult to expectorate at times. Moderate severity. Complains of shortness of breath and wheezing. She did complete the antibiotics in the prednisone recently. It was only partially helpful. We also did request an echocardiogram. No evidence of any cor pulmonale. She does have significant eosinophilia and therefore has a component of eosinophilic bronchitis. The patient will benefit from biologic therapy such as Dupixent. However, the insurance company denied access to that medication. Therefore will place her back on prednisone and also will get a sputum culture. She continues use her respiratory therapy. She continues have sick contacts and she is bringing up her grandchildren. Therefore, the sputum culture should help us make sure that we can clear any ongoing infections. The patient says she cultures not helpful if she continues to be symptomatic even after her 3rd course of antibiotics and will request a bronchoscopy to be performed. 05/18/2023 the patient is here for a pulm onary follow-up visit. The patient continues to struggle with breathing. Significant shortness breath with minimal activity. She has been using the oxygen with good effect. Her cough seems to be little better although she still expectorating phlegm. The patient has been off prednisone at this time. We did review her last blood work including venous gas demonstrating an elevated CO2 of 55 mmHg. Based on chronic respiratory failure with hypercapnia the patient will benefit from noninvasive ventilator. This will provide her with relief with the work of breathing at nighttime while sleeping and also as needed. The patient is also using her nebulized therapy with DuoNeb. Will go ahead and add back the budesonide to try to help her ease the need for prednisone. I will give her some prednisone but a lower dose so we can have her take for longer period of time. [facility] Medical History (Updated 05/18/23 @ 18:38 by Neville Martínez MD) Chronic respiratory failure Asthma-COPD overlap syndrome Asthma Allergies Depression On home oxygen therapy Hyperlipidemia Hypertension Anxiety COPD (chronic obstructive pulmonary disease) Social History Household Members: Family Housing: House Do you presently have visiting nurse or other home services: No Alcohol intake: never Patient Tobacco Use Status: Former Tobacco user Tobacco use type: Cigarette Years Smoked: 25 years service: No Current occupational status: retired Review of Systems Const Denies night sweats ENT Denies change in voice, Denies lip swelling, Denies mouth pain, Reports nasal congestion, Reports nasal discharge and Denies tongue swelling Card Denies chest pain, Reports dyspnea and Reports dyspnea on exertion Resp Reports change in phlegm color, Reports chest congestion, Reports cough, Denies hemoptysis, Reports dyspnea, Reports dyspnea on exertion and Reports wheezing GI Denies abdominal pain Musc Denies no additional complaints Neuro Denies Neuro-related abnormal movements Psych Denies no additional complaints Hair/Lymph Denies easy bleeding and Denies lymphadenopathy Aller/Immun Denies lip swelling, Denies tongue swelling and Reports wheezing Physical Exam Vital Signs: Last Vital Signs Pulse 89 05/18/23 10:17 BP 128/70 05/18/23 10:17 Pulse Ox 94 05/18/23 10:17 Oxygen Delivery Method Room Air 05/18/23 10:17 BMI result Body Mass Index 23.4 Const General: alert HEENT General nose exam: Abnormal external nose present and Nasal discharge present Eyes Pupils: Equal, round and reactive pupils present Neck Neck: Yes supple Chest Chest palpation & inspection: normal inspection of the chest Resp Effort & Inspection: normal respiratory effort and prolonged expiratory phase Auscultation: no crackles, no rhonchi, wheezes and diminished lung sounds diffuse Cardio Rate: regular rate Rhythm: regular rhythm Heart sounds: S1 normal heart sound present and S2 normal heart sound present GI Palpation (GI): Soft to palpation and nontender Auscultation: normal bowel sounds General: Yes no CVA tenderness Back/Spine/Pelvis Back: no CVA tenderness Skin General skin exam: rashes and/or lesions noted Neuro Cranial nerves: Yes Equal, round and reactive pupils present Results Reviewed Results Reviewed: RUN: 05/18/23 1839 PAGE 1 [facility] [address] [place] [id number] Hearing Healthcare Practitioner: Barry De Santiago M.D. Specimen Inquiry Name: Mouna Valladares Age/Sex: 72/F : 1950 Unit#: [id number] Attend Dr: Neville Martínez MD Re02/23/23 Status: DEP REF Location: [facility] isch: SPEC : [id number] NICKO: 02/23/23 STATUS: COMP REQ : [id number] RECD: 02/23/[address]: Neville Martínez MD COMP: 02/23/23 ENTERED: 02/23/23 [facility] DR: SOCORRO BEST MD ORDERED: VBGS - POC Test Result Flag Reference VBG pH 7.41 7.32-7.43 VBG pCO2 55 mmHg VBG pO2 31 mmHg VBG BE 8.6 mmol/L VBG HCO3- 35 H 22-26 mmol/L VBG O2 % Sat 50.0 % END OF REPORT Assessment & Plan Assessment & Plan (1) Asthma: Code(s): J45.909 - Unspecified asthma, uncomplicated Qualifiers: Asthma complication type: with acute exacerbation Asthma persistence: persistent Asthma severity: severe Qualified Code(s): J45.51 - Severe persistent asthma with (acute) exacerbation (2) Dyspnea: Code(s): R06.00 - Dyspnea, unspecified Qualifiers: Dyspnea type: dyspnea on exertion Qualified Code(s): R06.09 - Other forms of dyspnea (3) Asthma-COPD overlap syndrome: Code(s): J44.89 - Other specified chronic obstructive pulmonary disease (4) Chronic respiratory failure: Comment: The patient carries a poor prognosi due to her hypercarbia. She has increase work of breathing and has a high risk for hospital admissions. The patient benefits from a non invasive ventilator to improve her gas exchange, help her with the work of breathing and improve her overall prognosis. Code(s): J96.10 - Chronic respiratory failure, unspecified whether with hypoxia or hypercapnia Qualifiers: Respiratory failure complication: hypoxia and hypercapnia Qualified Code(s): J96.11 - Chronic respiratory failure with hypoxia; J96.12 - Chronic respiratory failure with hypercapnia Plan start non invasive ventilator. Astral will be requested from her [employer], [employer] continue Breo 100 start Budesonide start low dose prednisone taper start Azithromycin MWF continue oxygen with activity 2L/pulse Continue Duoneb QID as needed continue Daliresp 500 mcg F/U 6 weeks Orders: Orders Venous Blood Gas Today J44.89 - Other specified chronic obstructive pulmonary disease, R06.00 - Dyspnea, unspecified Complete Blood Count Auto Diff Today J44.89 - Other specified chronic obstructive pulmonary disease, R06.00 - Dyspnea, unspecified Basic Metabolic Panel Today J44.89 - Other specified chronic obstructive pulmonary disease, R06.00 - Dyspnea, unspecified Immunoglobulin E Today J44.89 - Other specified chronic obstructive pulmonary disease, R06.00 - Dyspnea, unspecified Medications: New prednisone PO daily; Take 2 tabs daily x 10 days, then 1 tab daily x 20 days 30 days 40 tabs 1RF azithromycin Take 1 tablet on Tuesday/Tuesday/Tuesday 250 mg PO 3XW 28 days 12 tabs 6RF K21.9 - Gastro-esophageal reflux disease without esophagitis Coding Level of Care Code Est Pt Level 4 (08274) Diagnoses Severe persistent asthma with acute exacerbation J45.51 Asthma complication type: with acute exacerbation Asthma persistence: persistent Asthma severity: severe Dyspnea on exertion R06.09 Dyspnea type: dyspnea on exertion Asthma-COPD overlap syndrome J44.89 Chronic respiratory failure with hypoxia and hypercapnia J96.11; J96.12 Respiratory failure complication: hypoxia and hypercapnia Time Spent (min) 17
== END 2023-05-18 10:39 | disposition home or self-care (01) ==
PROVIDERS: PCP Internal Medicine; Visit Provider Hospitalist
DX: J45.51 Severe persistent asthma with (acute) exacerbation (principal); J44.89 Other specified chronic obstructive pulmonary disease; J96.11 Chronic respiratory failure with hypoxia; J96.12 Chronic respiratory failure with hypercapnia
CPT/HCPCS: 99214

== ENCOUNTER 2023-06-16 10:00 | Outpatient (AMB) | payer BC, SELFPAY ==
--- NOTE | 2023-06-16 10:03 | A.OFFVIS_ITS ---
Intake Vital Signs 06/16/23 10:04 Height 5 ft 5 in Weight 144 lb BMI 24.0 BP 128/70 Blood Pressure Location Lt brachial Position Sitting Pulse 78 Pulse Source Pulse Oximeter Pulse Oximetry (%) 97 Oxygen Delivery Method Room Air Intake Visit Reasons: COPD Coding Specialist Required: No Allergies hydrocodone [From Vicodin] Allergy (Mild, Verified 06/16/23 10:06) Rash HPI HPI Comments History of Present Illness Details The patient is a 73-year-old woman known asthma-COPD and chronic bronchitis. She has been doing very well. She has lost significant weight. She is active taking care of her grandchildren. Although she does not exercise regularly. She was started me that she did get a new treadmill and she used once. She had a room but in and the speed went up to 9 mph. She subsequently fell from and has not gone back on it. She will try again being careful not to speed up. She has not been using the Symbicort regularly. She only uses it once in a while. Explained to her she is better off and he is using it once a day. Also provided with rescue inhaler. She does have a hard time expectorating. She has had a history rib fractures and she does not want fracture of the rib. Because of her COPD and chronic bronchitis I believe a Acapella valve will be effective by allowing her to provide chest physical therapy. The patient is still participating in the lung cancer screening program at [facility]. 01/07/2023 the patient is here for pulmon susana follow-up visit. She was seen back in October for sick visit. She was placed on prednisone antibiotics for suggestion of pneumonia. The patient however worsening she ended up going to the hospital briefly for a COPD exacerbation. She was subsequently discharged and she has felt well after that. She is back to her baseline. She is using oxygen with activity in using her respiratory medicines. Will provide her with the pneumonia vaccine today, Prevnar 20. She will return in 6 months with PFTs to address her respiratory capacity. 02/23/2023 the patient is here for a [facility] follow-up visit. The patient was briefly hospitalized at [facility] with respiratory symptoms. She she was briefly admitted to the hospital was diagnosed with a COPD exacerbation. She did have blood work demonstrating an elevated eosinophil count of 1700 and also 1100 which is significantly elevated. On further questioning the patient does have a history of asthma. The patient appears to have a allergic asthma phenotype that is progressed more to and asthma COPD overlap syndrome. She has been on multiple courses of prednisone. The patient still having some wheezing and some shortness of breath at this time. Ukgk-tq-pqjcqybr severity. Will go ahead and start her on low-dose of prednisone. She will benefit from starting Dupixent in view of her significant eosinophilia and allergic phenotype. The patient will continue with respiratory therapy with frequent nebulizer treatments. She also continues with the oxygen with activity. We did review her chest x-ray that she had a [facility] demonstrating no acute disease although significant hyperinflation. The patient also has a CT scan that we did review but from 2020. She will go ahead and have blood work done including allergy testing. Will recheck her eosinophils after the course of prednisone. The patient is off antibiotics at this time. She will continue the Daliresp at this time. Also to note she did have an elevated brain x-ray peptide while a [facility]. She is at risk of developing cor pulmonale. Will go ahead and request an echocardiogram at this time. 04/07/2023 the patient is here for a pulmo nary follow-up visit. The patient overall continues to have a productive cough. The cough is now tenacious yellowish-green in color. It is difficult to expectorate at times. Moderate severity. Complains of shortness of breath and wheezing. She did complete the antibiotics in the prednisone recently. It was only partially helpful. We also did request an echocardiogram. No evidence of any cor pulmonale. She does have significant eosinophilia and therefore has a component of eosinophilic bronchitis. The patient will benefit from biologic therapy such as Dupixent. However, the insurance company denied access to that medication. Therefore will place her back on prednisone and also will get a sputum culture. She continues use her respiratory therapy. She continues have sick contacts and she is bringing up her grandchildren. Therefore, the sputum culture should help us make sure that we can clear any ongoing infections. The patient says she cultures not helpful if she continues to be symptomatic even after her 3rd course of antibiotics and will request a bronchoscopy to be performed. 05/18/2023 the patient is here for a pul onhedley follow-up visit. The patient continues to struggle with breathing. Significant shortness breath with minimal activity. She has been using the oxygen with good effect. Her cough seems to be little better although she still expectorating phlegm. The patient has been off prednisone at this time. We did review her last blood work including venous gas demonstrating an elevated CO2 of 55 mmHg. Based on chronic respiratory failure with hypercapnia the patient will benefit from noninvasive ventilator. This will provide her with relief with the work of breathing at nighttime while sleeping and also as needed. The patient is also using her nebulized therapy with DuoNeb. Will go ahead and add back the budesonide to try to help her ease the need for prednisone. I will give her some prednisone but a lower dose so we can have her take for longer period of time. 06/16/2023 the patient is here for pulmon susana follow-up visit. She has doing a little better. She still continues to taper down prednisone. She has yet to start the noninvasive ventilator. I believe that is going to be next week. In the meantime she continues on the azithromycin 3 times a week. She is also tolerating the Daliresp. She is still struggling with breathing however. She barely can do activities of daily living because her significant shortness breath. She did start walking some although she is walking slow. We did talk about the online pulmonary rehabilitation in a did give her information about that. In view of her worsening respiratory capacity will go ahead and request PFTs for the next visit. [facility] Medical History (Updated 06/16/23 @ 10:10 by Neville Martínez MD) Chronic respiratory failure Asthma-COPD overlap syndrome Asthma Allergies Depression On home oxygen therapy Hyperlipidemia Hypertension Anxiety COPD (chronic obstructive pulmonary disease) Social History Household Members: Family Housing: House Do you presently have visiting nurse or other home services: No Alcohol intake: never Patient Tobacco Use Status: Former Tobacco user Tobacco use type: Cigarette Years Smoked: 25 years service: No Current occupational status: retired Review of Systems Const Denies night sweats ENT Denies change in voice, Denies lip swelling, Denies mouth pain, Reports nasal congestion, Reports nasal discharge and Denies tongue swelling Card Denies chest pain and Reports dyspnea on exertion Resp Reports chest congestion, Reports cough, Denies hemoptysis, Reports dyspnea on exertion and Reports wheezing GI Denies abdominal pain Musc Denies no additional complaints Neuro Denies Neuro-related abnormal movements Psych Denies no additional complaints Hair/Lymph Denies easy bleeding and Denies lymphadenopathy Aller/Immun Denies lip swelling, Denies tongue swelling and Reports wheezing Physical Exam Vital Signs: Last Vital Signs Pulse 78 06/16/23 10:04 BP 128/70 06/16/23 10:04 Pulse Ox 97 06/16/23 10:04 Oxygen Delivery Method Room Air 06/16/23 10:04 BMI result Body Mass Index 24.0 Const General: alert HEENT General nose exam: Abnormal external nose present and Nasal discharge present Eyes Pupils: Equal, round and reactive pupils present Neck Neck: Yes supple Chest Chest palpation & inspection: normal inspection of the chest Resp Effort & Inspection: normal respiratory effort and prolonged expiratory phase Auscultation: no crackles, no rhonchi, no wheezes and diminished lung sounds diffuse Cardio Rate: regular rate Rhythm: regular rhythm Heart sounds: S1 normal heart sound present and S2 normal heart sound present GI Palpation (GI): Soft to palpation and nontender Auscultation: normal bowel sounds General: Yes no CVA tenderness Back/Spine/Pelvis Back: no CVA tenderness Skin General skin exam: rashes and/or lesions noted Neuro Cranial nerves: Yes Equal, round and reactive pupils present Assessment & Plan Assessment & Plan (1) Asthma: Code(s): J45.909 - Unspecified asthma, uncomplicated Qualifiers: Asthma complication type: with acute exacerbation Asthma persistence: persistent Asthma severity: severe Qualified Code(s): J45.51 - Severe persistent asthma with (acute) exacerbation (2) Dyspnea: Code(s): R06.00 - Dyspnea, unspecified Qualifiers: Dyspnea type: dyspnea on exertion Qualified Code(s): R06.09 - Other forms of dyspnea (3) Asthma-COPD overlap syndrome: Code(s): J44.89 - Other specified chronic obstructive pulmonary disease (4) Chronic respiratory failure: Code(s): J96.10 - Chronic respiratory failure, unspecified whether with hypoxia or hypercapnia Qualifiers: Respiratory failure complication: hypoxia and hypercapnia Qualified Code(s): J96.11 - Chronic respiratory failure with hypoxia; J96.12 - Chronic respiratory failure with hypercapnia (5) COPD (chronic obstructive pulmonary disease): Code(s): J44.9 - Chronic obstructive pulmonary disease, unspecified Qualifiers: COPD type: chronic bronchitis Chronic bronchitis type: mixed simple and mucopurulent Qualified Code(s): J41.8 - Mixed simple and mucopurulent chronic bronchitis Plan start non invasive ventilator. Lyudmila will be requested from her [employer] company, [employer] continue Breo 100 start Budesonide contiue low dose prednisone taper continue Azithromycin MWF continue oxygen with activity 2L/pulse Continue Duoneb QID as needed continue Daliresp 500 mcg PFTs F/U 8 weeks Orders: Orders PFT pulmonary function test Today J41.8 - Mixed simple and mucopurulent chronic bronchitis Medications: New budesonide 0.5 mg (2 mL) inhalation DAILY 30 days 60 mL 11RF J44.9 - Chronic obstructive pulmonary disease, unspecified Changed From ipratropium-albuterol 0.5 mg-3 mg(2.5 mg base)/3 mL 3 mL inhalation QID 180 mL 0RF J44.9 - Chronic obstructive pulmonary disease, unspecified To ipratropium-albuterol 0.5 mg-3 mg(2.5 mg base)/3 mL 3 mL inhalation QID 30 days 360 mL 11RF J44.9 - Chronic obstructive pulmonary disease, unspecified Coding Level of Care Code Est Pt Level 4 (03462) Diagnoses Severe persistent asthma with acute exacerbation J45.51 Asthma complication type: with acute exacerbation Asthma persistence: persistent Asthma severity: severe Dyspnea on exertion R06.09 Dyspnea type: dyspnea on exertion Asthma-COPD overlap syndrome J44.89 Chronic respiratory failure with hypoxia and hypercapnia J96.11; J96.12 Respiratory failure complication: hypoxia and hypercapnia Mixed simple and mucopurulent chronic bronchitis J41.8 COPD type: chronic bronchitis Chronic bronchitis type: mixed simple and mucopurulent Time Spent (min) 17
[2023-06-16 10:04] VITALS: BP 128/70; PULSE 78; O2SAT 97; BMI 24.0
== END 2023-06-16 10:27 | disposition home or self-care (01) ==
PROVIDERS: PCP Internal Medicine; Visit Provider Hospitalist
DX: J45.51 Severe persistent asthma with (acute) exacerbation (principal); J44.89 Other specified chronic obstructive pulmonary disease; J96.11 Chronic respiratory failure with hypoxia; J96.12 Chronic respiratory failure with hypercapnia; J41.8 Mixed simple and mucopurulent chronic bronchitis
CPT/HCPCS: 99214

== ENCOUNTER → 2023-06-16 10:00 | Outpatient (BNVA) | payer BC, SELFPAY | PROVIDERS: PCP Internal Medicine; Visit Provider Hospitalist | DX: J44.89 Other specified chronic obstructive pulmonary disease (principal); R06.00 Dyspnea, unspecified; K21.9 Gastro-esophageal reflux disease without esophagitis ==

== ENCOUNTER 2023-07-22 10:01 | Outpatient (REF) | payer BC, SELFPAY ==
[2023-07-22 09:29] VITALS: PULSE 92; RESP 16; O2SAT 95
--- NOTE | 2023-07-22 14:01 | PFT_ITS ---
Flows: FEV1: 45 % of predicted at 1.00 L FVC: 70 % of predicted at 2.02 L FEV1/FVC: 49 % Bronchodilator response: Present Volumes: Total lung capacity: 102 % of predicted at 5.26 L Residual volume: 177 % of predicted at 3.66 L Slow vital capacity: 53 % of predicted at 1.60 L Expiratory reserve volume: 53 % of predicted at 0.39 L Diffusion capacity: Moderately decreased, adjusts to being mildly decreased after correction for alveolar ventilation. Impression: Severe obstructive ventilatory defect with positive bronchodilator response. Increased residual volume suggests air trapping. Decreased diffusion capacity suggests emphysema. MTDD
== END 2023-07-22 10:02 | disposition home or self-care (01) ==
LOC: HO.RESP 10:01
PROVIDERS: PCP Internal Medicine; Visit Provider Hospitalist
DX: J41.8 Mixed simple and mucopurulent chronic bronchitis (principal)
CPT/HCPCS: 94010; 94640; 94727; 94729

== ENCOUNTER → 2023-07-22 14:01 | Outpatient (BNV) | payer BC, SELFPAY | PROVIDERS: PCP Internal Medicine; Visit Provider Internal Medicine Pulmonary Disease | DX: J41.8 Mixed simple and mucopurulent chronic bronchitis (principal) | CPT/HCPCS: 94060; 94727; 94729 ==

== ENCOUNTER 2023-08-18 10:13 | Outpatient (AMB) | payer BC, SELFPAY ==
[2023-08-18 10:16] VITALS: PULSE 88; O2SAT 94; BMI 24.3
--- NOTE | 2023-08-18 10:16 | MHC.OFFVIS ---
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 She has been doing very well. She has lost significant weight. She is active taking care of her grandchildren. Although she does not exercise regularly. She was started me that she did get a new treadmill and she used once. She had a room but in and the speed went up to 9 mph. She subsequently fell from and has not gone back on it. She will try again being careful not to speed up. She has not been using the Symbicort regularly. She only uses it once in a while. Explained to her she is better off and he is using it once a day. Also provided with rescue inhaler. She does have a hard time expectorating. She has had a history rib fractures and she does not want fracture of the rib. Because of her COPD and chronic bronchitis I believe a Acapella valve will be effective by allowing her to provide chest physical therapy. The patient is still participating in the lung cancer screening program at [facility]. 04/07/2023 the patient is here for a pulmonary follow-up visit. The patient overall continues to have a productive cough. The cough is now tenacious yellowish-green in color. It is difficult to expectorate at times. Moderate severity. Complains of shortness of breath and wheezing. She did complete the antibiotics in the prednisone recently. It was only partially helpful. We also did request an echocardiogram. No evidence of any cor pulmonale. She does have significant eosinophilia and therefore has a component of eosinophilic bronchitis. The patient will benefit from biologic therapy such as Dupixent. However, the insurance company denied access to that medication. Therefore will place her back on prednisone and also will get a sputum culture. She continues use her respiratory therapy. She continues have sick contacts and she is bringing up her grandchildren. Therefore, the sputum culture should help us make sure that we can clear any ongoing infections. The patient says she cultures not helpful if she continues to be symptomatic even after her 3rd course of antibiotics and will request a bronchoscopy to be performed. 05/18/2023 the patient is here for a pulmonary follow-up visit. The patient continues to struggle with breathing. Significant shortness breath with minimal activity. She has been using the oxygen with good effect. Her cough seems to be little better although she still expectorating phlegm. The patient has been off prednisone at this time. We did review her last blood work including venous gas demonstrating an elevated CO2 of 55 mmHg. Based on chronic respiratory failure with hypercapnia the patient will benefit from noninvasive ventilator. This will provide her with relief with the work of breathing at nighttime while sleeping and also as needed. The patient is also using her nebulized therapy with DuoNeb. Will go ahead and add back the budesonide to try to help her ease the need for prednisone. I will give her some prednisone but a lower dose so we can have her take for longer period of time. 06/16/2023 the patient is here for pulmonary follow-up visit. She has doing a little better. She still continues to taper down prednisone. She has yet to start the noninvasive ventilator. I believe that is going to be next week. In the meantime she continues on the azithromycin 3 times a week. She is also tolerating the Daliresp. She is still struggling with breathing however. She barely can do activities of daily living because her significant shortness breath. She did start walking some although she is walking slow. We did talk about the online pulmonary rehabilitation in a did give her information about that. In view of her worsening respiratory capacity will go ahead and request PFTs for the next visit. 08/18/2023 the patient is here for a sick visit. She started developing worsening respiratory symptoms for the last 5-7 days. Denies any fevers or chills. Started developing worsening cough chest congestion shortness of breath. Moderate severity. Also has malaise and fatigue. She has not able to expectorate. She has been using nebulized therapy. She has been noticing some desaturations down to 90%. She has been using her oxygen more regularly. The patient is having significant rhonchi and wheezing on examination. We did give her 2 DuoNeb treatments which did help her. Oxygen improved to about 96% on room air while using the nebulizer. Therefore, since she is still having significant wheezing we did give her Solu-Medrol 125 mg IM x1 is going to start a couple antibiotics to treat her for lower respiratory infection. If the patient worsens she needs to go to the ER. Otherwise if she has no better in about 48 hours she also may need to go seek further medical advice. [facility] Medical History (Updated 08/18/23 @ 21:26 by Neville Martínez MD) Chronic respiratory failure Asthma-COPD overlap syndrome Asthma Allergies Depression On home oxygen therapy Hyperlipidemia Hypertension Anxiety COPD (chronic obstructive pulmonary disease) Social History Household Members: Family Housing: House Do you presently have visiting nurse or other home services: No Alcohol intake: never Patient Tobacco Use Status: Former Tobacco user Tobacco use type: Cigarette Years Smoked: 25 years service: No Current occupational status: retired Review of Systems Const Reports fatigue and Denies night sweats ENT Denies change in voice, Denies lip swelling, Denies mouth pain, Reports nasal congestion, Reports nasal discharge and Denies tongue swelling Card Denies chest pain, Reports dyspnea and Reports dyspnea on exertion Resp Reports chest congestion, Reports cough, Denies hemoptysis, Reports dyspnea, Reports dyspnea on exertion and Reports wheezing GI Denies abdominal pain Musc Denies no additional complaints Neuro Denies Neuro-related abnormal movements Psych Denies no additional complaints Endo Reports fatigue Hair/Lymph Denies easy bleeding and Denies lymphadenopathy Aller/Immun Denies lip swelling, Denies tongue swelling and Reports wheezing Physical Exam Vital Signs: Last Vital Signs Pulse 88 08/18/23 10:16 Pulse Ox 94 08/18/23 10:16 Oxygen Delivery Method Room Air 08/18/23 10:16 BMI result Body Mass Index 24.3 Const General: alert and tired appearing HEENT General nose exam: Abnormal external nose present and Nasal discharge present Eyes Pupils: Equal, round and reactive pupils present Neck Neck: Yes supple Chest Chest palpation & inspection: normal inspection of the chest Resp Effort & Inspection: prolonged expiratory phase Auscultation: crackles, rhonchi, wheezes and diminished lung sounds diffuse Cardio Rate: regular rate Rhythm: regular rhythm Heart sounds: S1 normal heart sound present and S2 normal heart sound present GI Palpation (GI): Soft to palpation and nontender Auscultation: normal bowel sounds General: Yes no CVA tenderness Back/Spine/Pelvis Back: no CVA tenderness Skin General skin exam: rashes and/or lesions noted Neuro Cranial nerves: Yes Equal, round and reactive pupils present Office Procedures Nebulizer Treatment Nebulizer Treatment [id number]/[id number] RX initial, or Nebulizer Subsequent Treatment Office Meds methylprednisolone sod suc(PF) 125 mg/2 mL solution for injection Performing Provider: eNville Martínez MD Performing Location: [facility] [place] Pulmonology Services Administered by: Margarita Dowling LPN on 08/18/23 11:02 Dose Route Admin Location Dispensed Lot Number Expiration Date [facility] Compliance Review Officer 125 mg IM R buttock 125 ea [id number] 04/03/25 1616-9992-03 [employer] Comments: Solumedrol given 125mg/2ml IM ipratropium 0.5 mg-albuterol 3 mg (2.5 mg base)/3 mL nebulization soln Performing Provider: Neville Martínez MD Performing Location: [facility] [place] Pulmonology Services Administered by: Margarita Dowling LPN on 08/18/23 11:02 Dose Route Admin Location Dispensed Lot Number Expiration Date [facility] Compliance Review Officer 3 mL inhalation 3 mL [id number] 02/01/25 61540-136-55 [employer] Assessment & Plan Assessment & Plan (1) COPD (chronic obstructive pulmonary disease): Code(s): J44.9 - Chronic obstructive pulmonary disease, unspecified Category: Medical Qualifiers: COPD type: COPD with acute lower respiratory infection Qualified Code(s): J44.0 - Chronic obstructive pulmonary disease with (acute) lower respiratory infection (2) Dyspnea: Code(s): R06.00 - Dyspnea, unspecified Category: Medical Qualifiers: Dyspnea type: dyspnea on exertion Qualified Code(s): R06.09 - Other forms of dyspnea (3) Asthma-COPD overlap syndrome: Code(s): J44.89 - Other specified chronic obstructive pulmonary disease Category: Medical (4) Chronic respiratory failure: Code(s): J96.10 - Chronic respiratory failure, unspecified whether with hypoxia or hypercapnia Category: Medical Qualifiers: Respiratory failure complication: hypoxia and hypercapnia Qualified Code(s): J96.11 - Chronic respiratory failure with hypoxia; J96.12 - Chronic respiratory failure with hypercapnia Plan Duoneb x 2 Solumedrol 125mg IM x 1 start vantin/Doxy x 8-10 days start prednisone taper non invasive ventilator. Lyudmila will be requested from her DME company, [employer] continue Breo 100 hold Azithromycin MWF continue oxygen with activity 2L/pulse Continue Duoneb QID as needed continue Daliresp 500 mcg F/U 4-6 weeks Orders: Orders AMB Nebulizer Treatment Today J41.8 - Mixed simple and mucopurulent chronic bronchitis AMB Methylprednisolone Sod Succ Injection Today J41.8 - Mixed simple and mucopurulent chronic bronchitis Medications: New amoxicillin-pot clavulanate 875-125 mg 1 tab PO BID 20 tabs 0RF 10 days doxycycline hyclate 100 mg PO BID 20 caps 0RF 10 days prednisone PO daily; Take 6 tabs daily x 3 days, then 5 tabs x 3 days, then 4 tabs x 3 days, then 3 tabs x 3 days, then 2 tabs daily x 3 days, then 1 tab x 3 days to complete. 63 tabs 0RF 18 days Coding Level of Care Code Est Pt Level 4 (08686) Diagnoses Chronic obstructive pulmonary disease with acute lower respiratory infection J44.0 COPD type: COPD with acute lower respiratory infection Dyspnea on exertion R06.09 Dyspnea type: dyspnea on exertion Asthma-COPD overlap syndrome J44.89 Chronic respiratory failure with hypoxia and hypercapnia J96.11; J96.12 Respiratory failure complication: hypoxia and hypercapnia CPT Codes Nebulizer Treatment - Nebulizer Treatment, initial or subsequent: [id number]/[id number] RX initial, or Nebulizer Subsequent Treatment ([id number]) Time Spent (min) 17
== END 2023-08-18 11:29 | disposition home or self-care (01) ==
PROVIDERS: PCP Internal Medicine; Visit Provider Hospitalist
DX: J44.0 Chronic obstructive pulmonary disease with (acute) lower respiratory infection (principal); R06.09 Other forms of dyspnea; J44.89 Other specified chronic obstructive pulmonary disease; J96.11 Chronic respiratory failure with hypoxia; J96.12 Chronic respiratory failure with hypercapnia; J41.8 Mixed simple and mucopurulent chronic bronchitis
CPT/HCPCS: 99214

== ENCOUNTER → 2023-08-18 10:13 | Outpatient (BNVA) | payer BC, SELFPAY | PROVIDERS: PCP Internal Medicine; Visit Provider Hospitalist | DX: J44.0 Chronic obstructive pulmonary disease with (acute) lower respiratory infection (principal); J96.11 Chronic respiratory failure with hypoxia; J96.12 Chronic respiratory failure with hypercapnia | CPT/HCPCS: 94640; 96372 ==

== ENCOUNTER 2023-09-15 14:17 | Outpatient (AMB) | payer BC, SELFPAY ==
[2023-09-15 14:28] VITALS: PULSE 75; O2SAT 95; BMI 24.8
--- NOTE | 2023-09-15 14:28 | MHC.OFFVIS ---
Vital Signs 09/15/23 14:28 Height 5 ft 5 in Weight 149 lb BMI 24.8 Pulse 75 Pulse Source Pulse Oximeter Pulse Oximetry (%) 95 Oxygen Delivery Method Room Air Comment 2 Liters Oxygen([facility]) Intake Visit Reasons: COPD Chestnut Tanner Required: No Allergies hydrocodone [From Vicodin] Allergy (Mild, Verified 09/15/23 14:30) Rash HPI Comments Details: The patient is a 73-year-old woman known asthma-COPD and chronic bronchitis. She has been doing very well. She has lost significant weight. She is active taking care of her grandchildren. Although she does not exercise regularly. She was started me that she did get a new treadmill and she used once. She had a room but in and the speed went up to 9 mph. She subsequently fell from and has not gone back on it. She will try again being careful not to speed up. She has not been using the Symbicort regularly. She only uses it once in a while. Explained to her she is better off and he is using it once a day. Also provided with rescue inhaler. She does have a hard time expectorating. She has had a history rib fractures and she does not want fracture of the rib. Because of her COPD and chronic bronchitis I believe a Acapella valve will be effective by allowing her to provide chest physical therapy. The patient is still participating in the lung cancer screening program at [facility]. 04/07/2023 the patient is here for a pulmonary follow-up visit. The patient overall continues to have a productive cough. The cough is now tenacious yellowish-green in color. It is difficult to expectorate at times. Moderate severity. Complains of shortness of breath and wheezing. She did complete the antibiotics in the prednisone recently. It was only partially helpful. We also did request an echocardiogram. No evidence of any cor pulmonale. She does have significant eosinophilia and therefore has a component of eosinophilic bronchitis. The patient will benefit from biologic therapy such as Dupixent. However, the insurance company denied access to that medication. Therefore will place her back on prednisone and also will get a sputum culture. She continues use her respiratory therapy. She continues have sick contacts and she is bringing up her grandchildren. Therefore, the sputum culture should help us make sure that we can clear any ongoing infections. The patient says she cultures not helpful if she continues to be symptomatic even after her 3rd course of antibiotics and will request a bronchoscopy to be performed. 05/18/2023 the patient is here for a pulmonary follow-up visit. The patient continues to struggle with breathing. Significant shortness breath with minimal activity. She has been using the oxygen with good effect. Her cough seems to be little better although she still expectorating phlegm. The patient has been off prednisone at this time. We did review her last blood work including venous gas demonstrating an elevated CO2 of 55 mmHg. Based on chronic respiratory failure with hypercapnia the patient will benefit from noninvasive ventilator. This will provide her with relief with the work of breathing at nighttime while sleeping and also as needed. The patient is also using her nebulized therapy with DuoNeb. Will go ahead and add back the budesonide to try to help her ease the need for prednisone. I will give her some prednisone but a lower dose so we can have her take for longer period of time. 06/16/2023 the patient is here for pulmonary follow-up visit. She has doing a little better. She still continues to taper down prednisone. She has yet to start the noninvasive ventilator. I believe that is going to be next week. In the meantime she continues on the azithromycin 3 times a week. She is also tolerating the Daliresp. She is still struggling with breathing however. She barely can do activities of daily living because her significant shortness breath. She did start walking some although she is walking slow. We did talk about the online pulmonary rehabilitation in a did give her information about that. In view of her worsening respiratory capacity will go ahead and request PFTs for the next visit. 08/18/2023 the patient is here for a sick visit. She started developing worsening respiratory symptoms for the last 5-7 days. Denies any fevers or chills. Started developing worsening cough chest congestion shortness of breath. Moderate severity. Also has malaise and fatigue. She has not able to expectorate. She has been using nebulized therapy. She has been noticing some desaturations down to 90%. She has been using her oxygen more regularly. The patient is having significant rhonchi and wheezing on examination. We did give her 2 DuoNeb treatments which did help her. Oxygen improved to about 96% on room air while using the nebulizer. Therefore, since she is still having significant wheezing we did give her Solu-Medrol 125 mg IM x1 is going to start a couple antibiotics to treat her for lower respiratory infection. If the patient worsens she needs to go to the ER. Otherwise if she has no better in about 48 hours she also may need to go seek further medical advice. 09/15/2023 the patient is here for a pulmonary follow-up visit. Overall the patient is doing well. She is tapered down to 10 mg of prednisone. Still having some wheezing but a lot better. She feels like she is getting closer to her baseline. She continues her respiratory therapy her nebs as prescribed. The patient continues using her oxygen also with good effect. She needs a few more comfortable using the oxygen around people sometimes she feels uncomfortable. The patient needs to start pulmonary rehabilitation. She has a hard time because it isn't low. She is going to start online pulmonary rehabilitation at this time. I did give her the information needed in order to look into it. Also will going to slow down her prednisone taper by given her 5 mg tablets and she will decrease it down to 10 mg every other day for couple weeks and then she can go down to 5 mg every other day for the couple weeks. Hopefully we can taper off. Need. As far as imaging studies. Her last chest x-ray demonstrating no acute disease. [facility] Medical History (Updated 09/15/23 @ 22:37 by Neville Martínez MD) Chronic respiratory failure Asthma-COPD overlap syndrome Asthma Allergies Depression On home oxygen therapy Hyperlipidemia Hypertension Anxiety COPD (chronic obstructive pulmonary disease) Social History Household Members: Family Housing: House Do you presently have visiting nurse or other home services: No Alcohol intake: never Patient Tobacco Use Status: Former Tobacco user Tobacco use type: Cigarette Years Smoked: 25 years service: No Current occupational status: retired Review of Systems Const Denies night sweats ENT Denies change in voice, Denies lip swelling, Denies mouth pain, Reports nasal congestion, Reports nasal discharge and Denies tongue swelling Card Denies chest pain and Reports dyspnea on exertion Resp Denies chest congestion, Reports cough, Denies hemoptysis, Reports dyspnea on exertion and Reports wheezing GI Denies abdominal pain Musc Denies no additional complaints Neuro Denies Neuro-related abnormal movements Psych Denies no additional complaints Hair/Lymph Denies easy bleeding and Denies lymphadenopathy Aller/Immun Denies lip swelling, Denies tongue swelling and Reports wheezing Physical Exam Vital Signs: Last Vital Signs Pulse 75 09/15/23 14:28 Pulse Ox 95 09/15/23 14:28 Oxygen Delivery Method Room Air 09/15/23 14:28 BMI result Body Mass Index 24.8 Const General: alert and tired appearing HEENT General nose exam: Abnormal external nose present and Nasal discharge present Eyes Pupils: Equal, round and reactive pupils present Neck Neck: Yes supple Chest Chest palpation & inspection: normal inspection of the chest Resp Effort & Inspection: prolonged expiratory phase Auscultation: no crackles, no rhonchi, wheezes and diminished lung sounds diffuse Cardio Rate: regular rate Rhythm: regular rhythm Heart sounds: S1 normal heart sound present and S2 normal heart sound present GI Palpation (GI): Soft to palpation and nontender Auscultation: normal bowel sounds General: Yes no CVA tenderness Back/Spine/Pelvis Back: no CVA tenderness Skin General skin exam: rashes and/or lesions noted Neuro Cranial nerves: Yes Equal, round and reactive pupils present Assessment & Plan Assessment & Plan (1) COPD (chronic obstructive pulmonary disease): Code(s): J44.9 - Chronic obstructive pulmonary disease, unspecified Category: Medical Qualifiers: COPD type: chronic bronchitis Chronic bronchitis type: mixed simple and mucopurulent Qualified Code(s): J41.8 - Mixed simple and mucopurulent chronic bronchitis (2) Dyspnea: Code(s): R06.00 - Dyspnea, unspecified Category: Medical Qualifiers: Dyspnea type: dyspnea on exertion Qualified Code(s): R06.09 - Other forms of dyspnea (3) Asthma-COPD overlap syndrome: Code(s): J44.89 - Other specified chronic obstructive pulmonary disease Category: Medical (4) Chronic respiratory failure: Code(s): J96.10 - Chronic respiratory failure, unspecified whether with hypoxia or hypercapnia Category: Medical Qualifiers: Respiratory failure complication: hypoxia and hypercapnia Qualified Code(s): J96.11 - Chronic respiratory failure with hypoxia; J96.12 - Chronic respiratory failure with hypercapnia Plan continue prednisone taper, 10mg every other day x 2 weeks, then 5mg every other day, then stop non invasive ventilator. [employer], did try it, but could not tolerate it, returned it continue Breo 100 restart Azithromycin MWF continue oxygen with activity 2L/pulse Continue Duoneb QID as needed continue Daliresp 500 mcg start on line pulmonary rehab F/U 4 months Medications: New prednisone 10 mg (2 x 5 mg) PO DAILY 60 tabs 4RF 30 days Coding Level of Care Code Est Pt Level 4 (28207) Diagnoses Mixed simple and mucopurulent chronic bronchitis J41.8 COPD type: chronic bronchitis Chronic bronchitis type: mixed simple and mucopurulent Dyspnea on exertion R06.09 Dyspnea type: dyspnea on exertion Asthma-COPD overlap syndrome J44.89 Chronic respiratory failure with hypoxia and hypercapnia J96.11; J96.12 Respiratory failure complication: hypoxia and hypercapnia Time Spent (min) 17
== END 2023-09-15 14:49 | disposition home or self-care (01) ==
PROVIDERS: PCP Internal Medicine; Visit Provider Hospitalist
DX: J41.8 Mixed simple and mucopurulent chronic bronchitis (principal); J96.11 Chronic respiratory failure with hypoxia; J96.12 Chronic respiratory failure with hypercapnia
CPT/HCPCS: 99214

== ENCOUNTER → 2023-09-15 14:17 | Outpatient (BNVA) | payer BC, SELFPAY | PROVIDERS: PCP Internal Medicine; Visit Provider Hospitalist ==

== ENCOUNTER 2024-01-02 11:22 | Outpatient (AMB) | payer BC, SELFPAY ==
--- NOTE | 2024-01-02 11:25 | A.OFFVIS_ITS ---
Vital Signs 01/02/24 11:26 Height 5 ft 5 in Weight 149 lb BMI 24.8 BP 160/80 H Blood Pressure Location Lt brachial Position Sitting Pulse 74 Pulse Source Pulse Oximeter Pulse Oximetry (%) 97 Oxygen Delivery Method Room Air Comment 2 Liters Oxygen([facility]) Intake Visit Reasons: COPD Racquet Maker Required: No Allergies hydrocodone [From Vicodin] Allergy (Mild, Verified 01/02/24 11:28) Rash HPI Comments Details: The patient is a 73-year-old woman known asthma-COPD and chronic bronchitis. She has been doing very well. She has lost significant weight. She is active taking care of her grandchildren. Although she does not exercise regularly. She was started me that she did get a new treadmill and she used once. She had a room but in and the speed went up to 9 mph. She subsequently fell from and has not gone back on it. She will try again being careful not to speed up. She has not been using the Symbicort regularly. She only uses it once in a while. Explained to her she is better off and he is using it once a day. Also provided with rescue inhaler. She does have a hard time expectorating. She has had a history rib fractures and she does not want fracture of the rib. Because of her COPD and chronic bronchitis I believe a Acapella valve will be effective by allowing her to provide chest physical therapy. The patient is still participating in the lung cancer screening program at [facility]. 04/07/2023 the patient is here for a pulmonary follow-up visit. The patient overall continues to have a productive cough. The cough is now tenacious yellowish-green in color. It is difficult to expectorate at times. Moderate severity. Complains of shortness of breath and wheezing. She did complete the antibiotics in the prednisone recently. It was only partially helpful. We also did request an echocardiogram. No evidence of any cor pulmonale. She does have significant eosinophilia and therefore has a component of eosinophilic bronchitis. The patient will benefit from biologic therapy such as Dupixent. However, the insurance company denied access to that medication. Therefore will place her back on prednisone and also will get a sputum culture. She continues use her respiratory therapy. She continues have sick contacts and she is bringing up her grandchildren. Therefore, the sputum culture should help us make sure that we can clear any ongoing infections. The patient says she cultures not helpful if she continues to be symptomatic even after her 3rd course of antibiotics and will request a bronchoscopy to be performed. 05/18/2023 the patient is here for a pulmonary follow-up visit. The patient continues to struggle with breathing. Significant shortness breath with minimal activity. She has been using the oxygen with good effect. Her cough seems to be little better although she still expectorating phlegm. The patient has been off prednisone at this time. We did review her last blood work including venous gas demonstrating an elevated CO2 of 55 mmHg. Based on chronic respiratory failure with hypercapnia the patient will benefit from noninvasive ventilator. This will provide her with relief with the work of breathing at nighttime while sleeping and also as needed. The patient is also using her nebulized therapy with DuoNeb. Will go ahead and add back the budesonide to try to help her ease the need for prednisone. I will give her some prednisone but a lower dose so we can have her take for longer period of time. 06/16/2023 the patient is here for pulmonary follow-up visit. She has doing a little better. She still continues to taper down prednisone. She has yet to start the noninvasive ventilator. I believe that is going to be next week. In the meantime she continues on the azithromycin 3 times a week. She is also tolerating the Daliresp. She is still struggling with breathing however. She barely can do activities of daily living because her significant shortness breath. She did start walking some although she is walking slow. We did talk about the online pulmonary rehabilitation in a did give her information about that. In view of her worsening respiratory capacity will go ahead and request PFTs for the next visit. 08/18/2023 the patient is here for a sick visit. She started developing worsening respiratory symptoms for the last 5-7 days. Denies any fevers or chills. Started developing worsening cough chest congestion shortness of breath. Moderate severity. Also has malaise and fatigue. She has not able to expectorate. She has been using nebulized therapy. She has been noticing some desaturations down to 90%. She has been using her oxygen more regularly. The patient is having significant rhonchi and wheezing on examination. We did give her 2 DuoNeb treatments which did help her. Oxygen improved to about 96% on room air while using the nebulizer. Therefore, since she is still having significant wheezing we did give her Solu-Medrol 125 mg IM x1 is going to start a couple antibiotics to treat her for lower respiratory infection. If the patient worsens she needs to go to the ER. Otherwise if she has no better in about 48 hours she also may need to go seek further medical advice. 09/15/2023 the patient is here for a pulmonary follow-up visit. Overall the patient is doing well. She is tapered down to 10 mg of prednisone. Still having some wheezing but a lot better. She feels like she is getting closer to her baseline. She continues her respiratory therapy her nebs as prescribed. The patient continues using her oxygen also with good effect. She needs a few more comfortable using the oxygen around people sometimes she feels uncomfortable. The patient needs to start pulmonary rehabilitation. She has a hard time because it isn't low. She is going to start online pulmonary rehabilitation at this time. I did give her the information needed in order to look into it. Also will going to slow down her prednisone taper by given her 5 mg tablets and she will decrease it down to 10 mg every other day for couple weeks and then she can go down to 5 mg every other day for the couple weeks. Hopefully we can taper off. Need. As far as imaging studies. Her last chest x-ray demonstrating no acute disease. 01/02/2024 the patient is here for pulmonary follow-up visit. She still struggling with breathing. She is having shortness of breath with minimal activity. She is having to increase her oxygen up to 3-4 L at home. She just does not feel good. She did restart the prednisone currently taking 10 mg daily. Initially on arrival she also was complaining of headache. Her blood pressure was elevated 160/80. I did recheck her left arm was 190/90 and then checked her right arm was 170/ 90. After getting her sit and relax a little bit we were able to recheck it again on her left arm was 160/90. I did call her primary care specially since she is having symptoms. She is only taking amlodipine right now. The primary care doctor did recommend for her to come into the office so she can get checked. Also, we talked about getting blood work. The patient should have additional blood work specially to rule out anemia that can also resulting worsening shortness of breath. Also as far as medications she is already medically optimized her inhaler therapy. We can consider starting theophylline but I would want to make sure that her blood pressure is better before doing so or starting any other medications before starting the theophylline specially since theophylline can be problematic with interactions and side effects. [facility] Medical History (Updated 01/02/24 @ 14:25 by Neville Martínez MD) Chronic respiratory failure Asthma-COPD overlap syndrome Asthma Allergies Depression On home oxygen therapy Hyperlipidemia Hypertension Anxiety COPD (chronic obstructive pulmonary disease) Social History Household Members: Family Housing: House Do you presently have visiting nurse or other home services: No Alcohol intake: never Patient Tobacco Use Status: Former Tobacco user Tobacco use type: Cigarette Years Smoked: 25 years service: No Current occupational status: retired Review of Systems Const Reports headache(s) and Denies night sweats ENT Denies change in voice, Reports headache(s), Denies lip swelling, Denies mouth pain, Reports nasal congestion, Reports nasal discharge and Denies tongue swelling Card Denies chest pain, Reports dyspnea and Reports dyspnea on exertion Resp Denies chest congestion, Reports cough, Denies hemoptysis, Reports dyspnea, Reports dyspnea on exertion and Reports wheezing GI Denies abdominal pain Musc Denies no additional complaints Neuro Denies Neuro-related abnormal movements and Reports headache(s) Psych Denies no additional complaints Hair/Lymph Denies easy bleeding and Denies lymphadenopathy Aller/Immun Denies lip swelling, Denies tongue swelling and Reports wheezing Physical Exam Vital Signs: Last Vital Signs Pulse 74 01/02/24 11:26 BP 160/80 H 01/02/24 11:26 Pulse Ox 97 01/02/24 11:26 Oxygen Delivery Method Room Air 01/02/24 11:26 BMI result Body Mass Index 24.8 Const General: alert and tired appearing HEENT General nose exam: Abnormal external nose present and Nasal discharge present Eyes Pupils: Equal, round and reactive pupils present Neck Neck: Yes supple Chest Chest palpation & inspection: normal inspection of the chest Resp Effort & Inspection: prolonged expiratory phase Auscultation: no crackles, no rhonchi and diminished lung sounds diffuse Cardio Rate: regular rate Rhythm: regular rhythm Heart sounds: S1 normal heart sound present and S2 normal heart sound present GI Palpation (GI): Soft to palpation and nontender Auscultation: normal bowel sounds General: Yes no CVA tenderness Back/Spine/Pelvis Back: no CVA tenderness Skin General skin exam: rashes and/or lesions noted Neuro Cranial nerves: Yes Equal, round and reactive pupils present Assessment & Plan Assessment & Plan (1) COPD (chronic obstructive pulmonary disease): Code(s): J44.9 - Chronic obstructive pulmonary disease, unspecified Category: Medical Qualifiers: COPD type: chronic bronchitis Chronic bronchitis type: mixed simple and mucopurulent Qualified Code(s): J41.8 - Mixed simple and mucopurulent chronic bronchitis (2) Dyspnea: Code(s): R06.00 - Dyspnea, unspecified Category: Medical Qualifiers: Dyspnea type: dyspnea on exertion Qualified Code(s): R06.09 - Other forms of dyspnea (3) Asthma-COPD overlap syndrome: Code(s): J44.89 - Other specified chronic obstructive pulmonary disease Category: Medical (4) Chronic respiratory failure: Code(s): J96.10 - Chronic respiratory failure, unspecified whether with hypoxia or hypercapnia Category: Medical Qualifiers: Respiratory failure complication: hypoxia and hypercapnia Qualified Code(s): J96.11 - Chronic respiratory failure with hypoxia; J96.12 - Chronic respiratory failure with hypercapnia (5) Hypertensive urgency: Code(s): I16.0 - Hypertensive urgency Category: Medical Plan continue prednisone taper, 10mg every other day x 2 weeks, then 5mg every other day, then stop continue Breo 100 continue Azithromycin MWF continue oxygen with activity 2L/pulse Continue Duoneb QID as needed continue Daliresp 500 mcg start Theophylline CXR Bloodwork Will see PCP today re: high BP F/U 4-6 weeks Orders: Orders Venous Blood Gas Today J96.11 - Chronic respiratory failure with hypoxia, J96.12 - Chronic respiratory failure with hypercapnia Theophylline Today J96.11 - Chronic respiratory failure with hypoxia, J96.12 - Chronic respiratory failure with hypercapnia Complete Blood Count Auto Diff Today J96.11 - Chronic respiratory failure with hypoxia, J96.12 - Chronic respiratory failure with hypercapnia Basic Metabolic Panel Today J96.11 - Chronic respiratory failure with hypoxia, J96.12 - Chronic respiratory failure with hypercapnia XR chest 2V Today J96.11 - Chronic respiratory failure with hypoxia, J96.12 - Chronic respiratory failure with hypercapnia Troponin-I High Sensitivity Today R06.09 - Other forms of dyspnea Medications: New theophylline ER 150 mg (1/2 x 300 mg) PO Q12H 30 tabs 5RF 30 days Coding Level of Care Code Est Pt Level 5 (21255) Complex EM visit Add On G2211 Diagnoses Mixed simple and mucopurulent chronic bronchitis J41.8 COPD type: chronic bronchitis Chronic bronchitis type: mixed simple and mucopurulent Dyspnea on exertion R06.09 Dyspnea type: dyspnea on exertion Asthma-COPD overlap syndrome J44.89 Chronic respiratory failure with hypoxia and hypercapnia J96.11; J96.12 Respiratory failure complication: hypoxia and hypercapnia Hypertensive urgency I16.0 Time Spent (min) 30
[2024-01-02 11:26] VITALS: BP 160/80; PULSE 74; O2SAT 97; BMI 24.8
== END 2024-01-02 12:01 | disposition home or self-care (01) ==
PROVIDERS: PCP Internal Medicine; Visit Provider Hospitalist
DX: J41.8 Mixed simple and mucopurulent chronic bronchitis (principal); J96.11 Chronic respiratory failure with hypoxia; J96.12 Chronic respiratory failure with hypercapnia; I16.0 Hypertensive urgency
CPT/HCPCS: 99215

== ENCOUNTER → 2024-01-02 11:22 | Outpatient (BNVA) | payer BC, SELFPAY | PROVIDERS: PCP Internal Medicine; Visit Provider Hospitalist ==

== ENCOUNTER 2024-02-14 09:21 | Outpatient (AMB) | payer BC, SELFPAY ==
[2024-02-14 09:23] VITALS: BP 116/64; PULSE 78; O2SAT 94
--- NOTE | 2024-02-14 09:23 | MHC.OFFVIS ---
Vital Signs 02/14/24 09:23 Height 5 ft 5 in BP 116/64 Blood Pressure Location Rt brachial Position Sitting Pulse 78 Pulse Source Pulse Oximeter Pulse Oximetry (%) 94 Oxygen Delivery Method Room Air Intake Visit Reasons: COPD Intake Note: Patient did not want to get weighed. Pest Control Chemical Technician Required: No Last Sawyer: Last Sawyer offered & declined Accompanied by: Self / Same As Patient Allergies hydrocodone [From Vicodin] Allergy (Mild, Verified 02/14/24 09:27) Rash Medication List - Last Reconciled 02/14/24 by Vandana Guerra LPN albuterol sulfate 90 mcg/actuation 2 puffs inhalation Q6H PRN amlodipine 5 mg PO BEDTIME atorvastatin 20 mg PO BEDTIME benzonatate 200 mg PO BID PRN 30 days budesonide 0.5 mg (2 mL) inhalation DAILY 30 days cariprazine (Vraylar) 1.5 mg PO DAILY dextromethorphan-bupropion 45-105 mg ER (Auvelity) 1 tab PO DAILY fluticasone furoate 50 mcg/actuation (Arnuity Ellipta) inhalation ipratropium-albuterol 0.5 mg-3 mg(2.5 mg base)/3 mL 3 mL inhalation QID 30 days lorazepam 1 mg PO BEDTIME PRN montelukast 10 mg PO BEDTIME nebulizers As directed Oxygen Home Use As directed prednisone 10 mg (2 x 5 mg) PO DAILY 30 days roflumilast 250 mcg PO DAILY theophylline ER 150 mg (1/2 x 300 mg) PO Q12H 30 days tiotropium bromide 2.5 mcg/actuation (Spiriva Respimat) 2 puffs inhalation DAILY 90 days trazodone 150 mg PO BEDTIME HPI Comments Details: The patient is a 73-year-old woman known asthma-COPD and chronic bronchitis. She has been doing very well. She has lost significant weight. She is active taking care of her grandchildren. Although she does not exercise regularly. She was started me that she did get a new treadmill and she used once. She had a room but in and the speed went up to 9 mph. She subsequently fell from and has not gone back on it. She will try again being careful not to speed up. She has not been using the Symbicort regularly. She only uses it once in a while. Explained to her she is better off and he is using it once a day. Also provided with rescue inhaler. She does have a hard time expectorating. She has had a history rib fractures and she does not want fracture of the rib. Because of her COPD and chronic bronchitis I believe a Acapella valve will be effective by allowing her to provide chest physical therapy. The patient is still participating in the lung cancer screening program at [facility]. 04/07/2023 the patient is here for a pulmonary follow-up visit. The patient overall continues to have a productive cough. The cough is now tenacious yellowish-green in color. It is difficult to expectorate at times. Moderate severity. Complains of shortness of breath and wheezing. She did complete the antibiotics in the prednisone recently. It was only partially helpful. We also did request an echocardiogram. No evidence of any cor pulmonale. She does have significant eosinophilia and therefore has a component of eosinophilic bronchitis. The patient will benefit from biologic therapy such as Dupixent. However, the insurance company denied access to that medication. Therefore will place her back on prednisone and also will get a sputum culture. She continues use her respiratory therapy. She continues have sick contacts and she is bringing up her grandchildren. Therefore, the sputum culture should help us make sure that we can clear any ongoing infections. The patient says she cultures not helpful if she continues to be symptomatic even after her 3rd course of antibiotics and will request a bronchoscopy to be performed. 05/18/2023 the patient is here for a pulmonary follow-up visit. The patient continues to struggle with breathing. Significant shortness breath with minimal activity. She has been using the oxygen with good effect. Her cough seems to be little better although she still expectorating phlegm. The patient has been off prednisone at this time. We did review her last blood work including venous gas demonstrating an elevated CO2 of 55 mmHg. Based on chronic respiratory failure with hypercapnia the patient will benefit from noninvasive ventilator. This will provide her with relief with the work of breathing at nighttime while sleeping and also as needed. The patient is also using her nebulized therapy with DuoNeb. Will go ahead and add back the budesonide to try to help her ease the need for prednisone. I will give her some prednisone but a lower dose so we can have her take for longer period of time. 06/16/2023 the patient is here for pulmonary follow-up visit. She has doing a little better. She still continues to taper down prednisone. She has yet to start the noninvasive ventilator. I believe that is going to be next week. In the meantime she continues on the azithromycin 3 times a week. She is also tolerating the Daliresp. She is still struggling with breathing however. She barely can do activities of daily living because her significant shortness breath. She did start walking some although she is walking slow. We did talk about the online pulmonary rehabilitation in a did give her information about that. In view of her worsening respiratory capacity will go ahead and request PFTs for the next visit. 08/18/2023 the patient is here for a sick visit. She started developing worsening respiratory symptoms for the last 5-7 days. Denies any fevers or chills. Started developing worsening cough chest congestion shortness of breath. Moderate severity. Also has malaise and fatigue. She has not able to expectorate. She has been using nebulized therapy. She has been noticing some desaturations down to 90%. She has been using her oxygen more regularly. The patient is having significant rhonchi and wheezing on examination. We did give her 2 DuoNeb treatments which did help her. Oxygen improved to about 96% on room air while using the nebulizer. Therefore, since she is still having significant wheezing we did give her Solu-Medrol 125 mg IM x1 is going to start a couple antibiotics to treat her for lower respiratory infection. If the patient worsens she needs to go to the ER. Otherwise if she has no better in about 48 hours she also may need to go seek further medical advice. 09/15/2023 the patient is here for a pulmonary follow-up visit. Overall the patient is doing well. She is tapered down to 10 mg of prednisone. Still having some wheezing but a lot better. She feels like she is getting closer to her baseline. She continues her respiratory therapy her nebs as prescribed. The patient continues using her oxygen also with good effect. She needs a few more comfortable using the oxygen around people sometimes she feels uncomfortable. The patient needs to start pulmonary rehabilitation. She has a hard time because it isn't low. She is going to start online pulmonary rehabilitation at this time. I did give her the information needed in order to look into it. Also will going to slow down her prednisone taper by given her 5 mg tablets and she will decrease it down to 10 mg every other day for couple weeks and then she can go down to 5 mg every other day for the couple weeks. Hopefully we can taper off. Need. As far as imaging studies. Her last chest x-ray demonstrating no acute disease. 01/02/2024 the patient is here for pulmonary follow-up visit. She still struggling with breathing. She is having shortness of breath with minimal activity. She is having to increase her oxygen up to 3-4 L at home. She just does not feel good. She did restart the prednisone currently taking 10 mg daily. Initially on arrival she also was complaining of headache. Her blood pressure was elevated 160/80. I did recheck her left arm was 190/90 and then checked her right arm was 170/ 90. After getting her sit and relax a little bit we were able to recheck it again on her left arm was 160/90. I did call her primary care specially since she is having symptoms. She is only taking amlodipine right now. The primary care doctor did recommend for her to come into the office so she can get checked. Also, we talked about getting blood work. The patient should have additional blood work specially to rule out anemia that can also resulting worsening shortness of breath. Also as far as medications she is already medically optimized her inhaler therapy. We can consider starting theophylline but I would want to make sure that her blood pressure is better before doing so or starting any other medications before starting the theophylline specially since theophylline can be problematic with interactions and side effects. 02/14/2024 the patient is here for a pulmonary follow-up visit. The last time she went to her primary care doctor because her blood pressure was elevated and her medications were adjusted. She is doing better at this time. She did not start the theophylline that because she was concerned about the blood pressure. But now is better. We will go ahead and have her started at a low dose specially since she continues to have significant dyspnea on exertion. Will make sure she is optimized with respiratory therapy but I do believe that theophylline will provide her some bronchodilation effect provide her some relief. Once she is on a she is going to company get blood work including a blood gas and also a theophylline level to see if we can further adjusted. Her CO2 have been slightly elevated but have been stable which is reassuring. For some reason she has only been taking Arnuity for inhaler. Will go ahead and switch over to Trelegy as she does need the maximum respiratory therapy in order to treat her very severe COPD. [facility] Medical History (Updated 01/02/24 @ 14:25 by Neville Martínez MD) Chronic respiratory failure Asthma-COPD overlap syndrome Asthma Allergies Depression On home oxygen therapy Hyperlipidemia Hypertension Anxiety COPD (chronic obstructive pulmonary disease) Social History (Updated 02/14/24 @ 09:30 by Vandana Guerra LPN) Household Members: Family Housing: House Do you presently have visiting nurse or other home services: No Alcohol intake: never Patient Tobacco Use Status: Former Tobacco user Tobacco use type: Cigarette Years Smoked: 25 years service: No Current occupational status: retired Review of Systems Const Reports headache(s) and Denies night sweats ENT Denies change in voice, Reports headache(s), Denies lip swelling, Denies mouth pain, Reports nasal congestion, Reports nasal discharge and Denies tongue swelling Card Denies chest pain, Reports dyspnea and Reports dyspnea on exertion Resp Denies chest congestion, Reports cough, Denies hemoptysis, Reports dyspnea, Reports dyspnea on exertion and Reports wheezing GI Denies abdominal pain Musc Denies no additional complaints Neuro Denies Neuro-related abnormal movements and Reports headache(s) Psych Denies no additional complaints Hair/Lymph Denies easy bleeding and Denies lymphadenopathy Aller/Immun Denies lip swelling, Denies tongue swelling and Reports wheezing Physical Exam Vital Signs: Last Vital Signs Pulse 78 02/14/24 09:23 BP 116/64 02/14/24 09:23 Pulse Ox 94 02/14/24 09:23 Oxygen Delivery Method Room Air 02/14/24 09:23 Const General: alert and tired appearing HEENT General nose exam: Abnormal external nose present and Nasal discharge present Eyes Pupils: Equal, round and reactive pupils present Neck Neck: Yes supple Chest Chest palpation & inspection: normal inspection of the chest Resp Effort & Inspection: prolonged expiratory phase Auscultation: no crackles, no rhonchi and diminished lung sounds diffuse Cardio Rate: regular rate Rhythm: regular rhythm Heart sounds: S1 normal heart sound present and S2 normal heart sound present GI Palpation (GI): Soft to palpation and nontender Auscultation: normal bowel sounds General: Yes no CVA tenderness Back/Spine/Pelvis Back: no CVA tenderness Skin General skin exam: rashes and/or lesions noted Neuro Cranial nerves: Yes Equal, round and reactive pupils present Assessment & Plan Assessment & Plan (1) COPD (chronic obstructive pulmonary disease): Code(s): J44.9 - Chronic obstructive pulmonary disease, unspecified Category: Medical Qualifiers: COPD type: chronic bronchitis Chronic bronchitis type: mixed simple and mucopurulent Qualified Code(s): J41.8 - Mixed simple and mucopurulent chronic bronchitis (2) Dyspnea: Code(s): R06.00 - Dyspnea, unspecified Category: Medical Qualifiers: Dyspnea type: dyspnea on exertion Qualified Code(s): R06.09 - Other forms of dyspnea (3) Asthma-COPD overlap syndrome: Code(s): J44.89 - Other specified chronic obstructive pulmonary disease Category: Medical (4) Chronic respiratory failure: Code(s): J96.10 - Chronic respiratory failure, unspecified whether with hypoxia or hypercapnia Category: Medical Qualifiers: Respiratory failure complication: hypoxia and hypercapnia Qualified Code(s): J96.11 - Chronic respiratory failure with hypoxia; J96.12 - Chronic respiratory failure with hypercapnia Plan continue prednisone taper, 5 mg day stop Breo 100 start Trelegy continue Azithromycin MWF continue oxygen with activity 2L/pulse Continue Duoneb QID as needed continue Daliresp 500 mcg start Theophyline bloodgas and theophilline levels F/U 4-6 weeks Orders: Orders Venous Blood Gas Today J96.11 - Chronic respiratory failure with hypoxia, J96.12 - Chronic respiratory failure with hypercapnia Complete Blood Count Auto Diff Today J96.11 - Chronic respiratory failure with hypoxia, J96.12 - Chronic respiratory failure with hypercapnia Basic Metabolic Panel Today J96.11 - Chronic respiratory failure with hypoxia, J96.12 - Chronic respiratory failure with hypercapnia Theophylline Today J96.11 - Chronic respiratory failure with hypoxia, J96.12 - Chronic respiratory failure with hypercapnia Medications: New wuxupvwggzo-nddknyocl-tosfawfc 200-62.5-25 mcg (Trelegy Ellipta) 1 inh inhalation DAILY 60 ea 12RF 30 days Discontinued budesonide Discontinued Reason: Doctor's Order 0.5 mg (2 mL) inhalation DAILY 30 days 60 mL 11RF J44.9 - Chronic obstructive pulmonary disease, unspecified Coding Level of Care Code Est Pt Level 4 (65279) Complex EM visit Add On G2211 Diagnoses Mixed simple and mucopurulent chronic bronchitis J41.8 COPD type: chronic bronchitis Chronic bronchitis type: mixed simple and mucopurulent Dyspnea on exertion R06.09 Dyspnea type: dyspnea on exertion Asthma-COPD overlap syndrome J44.89 Chronic respiratory failure with hypoxia and hypercapnia J96.11; J96.12 Respiratory failure complication: hypoxia and hypercapnia Time Spent (min) 17
== END 2024-02-14 09:51 | disposition home or self-care (01) ==
PROVIDERS: PCP Internal Medicine; Visit Provider Hospitalist
DX: J41.8 Mixed simple and mucopurulent chronic bronchitis (principal); J96.11 Chronic respiratory failure with hypoxia; J96.12 Chronic respiratory failure with hypercapnia
CPT/HCPCS: 99214

== ENCOUNTER 2024-05-04 10:04 | Outpatient (AMB) | payer BC, SELFPAY ==
[2024-05-04 10:06] VITALS: BP 138/70; PULSE 65; O2SAT 98
--- NOTE | 2024-05-04 10:06 | A.OFFVIS_ITS ---
Vital Signs 05/04/24 10:06 Height 5 ft 5 in BMI Reason not done Patient refused/unable BP 138/70 Blood Pressure Location Rt brachial Position Sitting Pulse 65 Pulse Source Pulse Oximeter Pulse Oximetry (%) 98 Oxygen Delivery Method Room Air Intake Visit Reasons: COPD Allergies hydrocodone [From Vicodin] Allergy (Mild, Verified 05/04/24 10:09) Rash HPI Comments Details: The patient is a 73-year-old woman known asthma-COPD and chronic bronchitis. She has been doing very well. She has lost significant weight. She is active taking care of her grandchildren. Although she does not exercise regularly. She was started me that she did get a new treadmill and she used once. She had a room but in and the speed went up to 9 mph. She subsequently fell from and has not gone back on it. She will try again being careful not to speed up. She has not been using the Symbicort regularly. She only uses it once in a while. Explained to her she is better off and he is using it once a day. Also provided with rescue inhaler. She does have a hard time expectorating. She has had a history rib fractures and she does not want fracture of the rib. Because of her COPD and chronic bronchitis I believe a Acapella valve will be effective by allowing her to provide chest physical therapy. The patient is still participating in the lung cancer screening program at [facility]. 04/07/2023 the patient is here for a pulmonary follow-up visit. The patient overall continues to have a productive cough. The cough is now tenacious yellowish-green in color. It is difficult to expectorate at times. Moderate severity. Complains of shortness of breath and wheezing. She did complete the antibiotics in the prednisone recently. It was only partially helpful. We also did request an echocardiogram. No evidence of any cor pulmonale. She does have significant eosinophilia and therefore has a component of eosinophilic bronchitis. The patient will benefit from biologic therapy such as Dupixent. However, the insurance company denied access to that medication. Therefore will place her back on prednisone and also will get a sputum culture. She continues use her respiratory therapy. She continues have sick contacts and she is bringing up her grandchildren. Therefore, the sputum culture should help us make sure that we can clear any ongoing infections. The patient says she cultures not helpful if she continues to be symptomatic even after her 3rd course of antibiotics and will request a bronchoscopy to be performed. 05/18/2023 the patient is here for a pulmonary follow-up visit. The patient continues to struggle with breathing. Significant shortness breath with minimal activity. She has been using the oxygen with good effect. Her cough seems to be little better although she still expectorating phlegm. The patient has been off prednisone at this time. We did review her last blood work including venous gas demonstrating an elevated CO2 of 55 mmHg. Based on chronic respiratory failure with hypercapnia the patient will benefit from noninvasive ventilator. This will provide her with relief with the work of breathing at nighttime while sleeping and also as needed. The patient is also using her nebulized therapy with DuoNeb. Will go ahead and add back the budesonide to try to help her ease the need for prednisone. I will give her some prednisone but a lower dose so we can have her take for longer period of time. 06/16/2023 the patient is here for pulmonary follow-up visit. She has doing a little better. She still continues to taper down prednisone. She has yet to start the noninvasive ventilator. I believe that is going to be next week. In the meantime she continues on the azithromycin 3 times a week. She is also tole rating the Daliresp. She is still struggling with breathing however. She barely can do activities of daily living because her significant shortness breath. She did start walking some although she is walking slow. We did talk about the online pulmonary rehabilitation in a did give her information about that. In view of her worsening respiratory capacity will go ahead and request PFTs for the next visit. 08/18/2023 the patient is here for a sick visit. She started developing worsening respiratory symptoms for the last 5-7 days. Denies any fevers or chills. Started developing worsening cough chest congestion shortness of breath. Moderate severity. Also has malaise and fatigue. She has not able to expectorate. She has been using nebulized therapy. She has been noticing some desaturations down to 90%. She has been using her oxygen more regularly. The patient is having significant rhonchi and wheezing on examination. We did give her 2 DuoNeb treatments which did help her. Oxygen improved to about 96% on room air while using the nebulizer. Therefore, since she is still having significant wheezing we did give her Solu-Medrol 125 mg IM x1 is going to start a couple antibiotics to treat her for lower respiratory infection. If the patient worsens she needs to go to the ER. Otherwise if she has no better in about 48 hours she also may need to go seek further medical advice. 09/15/2023 the patient is here for a pulmonary follow-up visit. Overall the patient is doing well. She is tapered down to 10 mg of prednisone. Still having some wheezing but a lot better. She feels like she is getting closer to her baseline. She continues her respiratory therapy her nebs as prescribed. The patient continues using her oxygen also with good effect. She needs a few more comfortable using the oxygen around people sometimes she feels uncomfortable. The patient needs to start pulmonary rehabilitation. She has a hard time because it isn't low. She is going to start online pulmonary rehabilitation at this time. I did give her the information needed in order to look into it. Also will going to slow down her prednisone taper by given her 5 mg tablets and she will decrease it down to 10 mg every other day for couple weeks and then she can go down to 5 mg every other day for the couple weeks. Hopefully we can taper off. Need. As far as imaging studies. Her last chest x-ray demonstrating no acute disease. 01/02/2024 the patient is here for pulmonary follow-up visit. She still struggling with breathing. She is having shortness of breath with minimal activ ity. She is having to increase her oxygen up to 3-4 L at home. She just does not feel good. She did restart the prednisone currently taking 10 mg daily. Initially on arrival she also was complaining of headache. Her blood pressure was elevated 160/80. I did recheck her left arm was 190/90 and then checked her right arm was 170/ 90. After getting her sit and relax a little bit we were able to recheck it again on her left arm was 160/90. I did call her primary care specially since she is having symptoms. She is only taking amlodipine right now. The primary care doctor did recommend for her to come into the office so she can get checked. Also, we talked about getting blood work. The patient should have additional blood work specially to rule out anemia that can also resulting worsening shortness of breath. Also as far as medications she is already medically optimized her inhaler therapy. We can consider starting theophylline but I would want to make sure that her blood pressure is better before doing so or starting any other medications before starting the theophylline specially since theophylline can be problematic with interactions and side effects. 02/14/2024 the patient is here for a pulmonary follow-up visit. The last time she went to her primary care doctor because her blood pressure was elevated and her medications were adjusted. She is doing better at this time. She did not start the theophylline that because she was concerned about the blood pressure. But now is better. We will go ahead and have her started at a low dose specially since she continues to have significant dyspnea on exertion. Will make sure she is optimized with respiratory therapy but I do believe that theophylline will provide her some bronchodilation effect provide her some relief. Once she is on a she is going to company get blood work including a blood gas and also a theophylline level to see if we can further adjusted. Her CO2 have been slightly elevated but have been stable which is reassuring. For some reason she has only been taking Arnuity for inhaler. Will go ahead and switch over to Trelegy as she does need the maximum respiratory therapy in order to treat her very severe COPD. 05/04/2024 the patient is here for a pulmonary follow-up visit. Overall the patient has been doing well. She is tolerating the medication was theophylline she continues on the prednisone 10 once daily down to 5 mg she also continues on the rest of the respiratory therapy with good adherence. She will have blood work today including a theophylline level to make sure that she is within therapeutic range of the subtherapeutic which would be ideal. The patient continues to exercise regularly which is reassuring. At some point will check her blood gas to make sure her CO2 is within reason and will follow-up in 4 months. If she has any issues prior to this she will call for reassessment. [facility] Medical History (Updated 01/02/24 @ 14:25 by Neville Martínez MD) Chronic respiratory failure Asthma-COPD overlap syndrome Asthma Allergies Depression On home oxygen therapy Hyperlipidemia Hypertension Anxiety COPD (chronic obstructive pulmonary disease) Social History Household Members: Family Housing: House Do you presently have visiting nurse or other home services: No Alcohol intake: never Patient Tobacco Use Status: Former Tobacco user Tobacco use type: Cigarette Years Smoked: 25 years service: No Current occupational status: retired Review of Systems Const Reports headache(s) and Denies night sweats ENT Denies change in voice, Reports headache(s), Denies lip swelling, Denies mouth pain, Reports nasal congestion, Reports nasal discharge and Denies tongue swelling Card Denies chest pain, Reports dyspnea and Reports dyspnea on exertion Resp Denies chest congestion, Reports cough, Denies hemoptysis, Reports dyspnea, Reports dyspnea on exertion and Reports wheezing GI Denies abdominal pain Musc Denies no additional complaints Neuro Denies Neuro-related abnormal movements and Reports headache(s) Psych Denies no additional complaints Hair/Lymph Denies easy bleeding and Denies lymphadenopathy Aller/Immun Denies lip swelling, Denies tongue swelling and Reports wheezing Physical Exam Vital Signs: Last Vital Signs Pulse 65 05/04/24 10:06 BP 138/70 05/04/24 10:06 Pulse Ox 98 05/04/24 10:06 Oxygen Delivery Method Room Air 05/04/24 10:06 Const General: alert and tired appearing HEENT General nose exam: Abnormal external nose present and Nasal discharge present Eyes Pupils: Equal, round and reactive pupils present Neck Neck: Yes supple Chest Chest palpation & inspection: normal inspection of the chest Resp Effort & Inspection: prolonged expiratory phase Auscultation: no crackles, no rhonchi and diminished lung sounds diffuse Cardio Rate: regular rate Rhythm: regular rhythm Heart sounds: S1 normal heart sound present and S2 normal heart sound present GI Palpation (GI): Soft to palpation and nontender Auscultation: normal bowel sounds General: Yes no CVA tenderness Back/Spine/Pelvis Back: no CVA tenderness Skin General skin exam: rashes and/or lesions noted Neuro Cranial nerves: Yes Equal, round and reactive pupils present Assessment & Plan Assessment & Plan (1) COPD (chronic obstructive pulmonary disease): Code(s): J44.9 - Chronic obstructive pulmonary disease, unspecified Category: Medical Qualifiers: COPD type: chronic bronchitis Chronic bronchitis type: mixed simple and mucopurulent Qualified Code(s): J41.8 - Mixed simple and mucopurulent chronic bronchitis (2) Dyspnea: Code(s): R06.00 - Dyspnea, unspecified Category: Medical Qualifiers: Dyspnea type: dyspnea on exertion Qualified Code(s): R06.09 - Other forms of dyspnea (3) Asthma-COPD overlap syndrome: Code(s): J44.89 - Other specified chronic obstructive pulmonary disease Category: Medical (4) Chronic respiratory failure: Code(s): J96.10 - Chronic respiratory failure, unspecified whether with hypoxia or hypercapnia Category: Medical Qualifiers: Respiratory failure complication: hypoxia and hypercapnia Qualified Code(s): J96.11 - Chronic respiratory failure with hypoxia; J96.12 - Chronic respiratory failure with hypercapnia Plan decrease prednisone taper, 5 mg day continue Trelegy continue Azithromycin MWF continue oxygen with activity 2L/pulse Continue Duoneb QID as needed continue Daliresp 500 mcg continue Theophyline bloodgas and theophilline levels F/U 4 months Coding Level of Care Code Est Pt Level 4 (57086) Diagnoses Mixed simple and mucopurulent chronic bronchitis J41.8 COPD type: chronic bronchitis Chronic bronchitis type: mixed simple and mucopurulent Dyspnea on exertion R06.09 Dyspnea type: dyspnea on exertion Asthma-COPD overlap syndrome J44.89 Chronic respiratory failure with hypoxia and hypercapnia J96.11; J96.12 Respiratory failure complication: hypoxia and hypercapnia Time Spent (min) 16
== END 2024-05-04 10:26 | disposition home or self-care (01) ==
PROVIDERS: PCP Internal Medicine; Visit Provider Hospitalist
DX: J41.8 Mixed simple and mucopurulent chronic bronchitis (principal); J96.11 Chronic respiratory failure with hypoxia; J96.12 Chronic respiratory failure with hypercapnia
CPT/HCPCS: 99214

== ENCOUNTER 2024-05-04 10:04 | Outpatient (REF) | payer BC, SELFPAY ==
[2024-05-04 10:45] LABS: MANUAL DIFF FLAG NO
[2024-05-04 10:49] LABS: Venous Blood Gas Refer to POC result
[2024-05-04 10:58] LABS: VBG Base Excess 7.1 mmol/L; VBG HCO3 32 mmol/L (22-26); VBG pCO2 49 mmHg; VBG pH 7.42 (7.32-7.43); VBG pO2 33 mmHg
--- OUTSIDE RECORDS SUMMARY | 2024-05-04 11:11 | XMS_ITS | Clinical Summary ---
Author Organization [facility] Address [address] [place] [address] Care Team Providers Care Associate Producer Name Role Phone Cheo Figueroa MD Primary Care Provider [phone] Allergies Active Allergy Reactions Criticality Noted Date Comments Hydrocodone-Acetaminophen Rash 04/22/2017 Medications Medication Sig Dispensed Refills Start Date End Date Status albuterol HFA (PROAIR HFA ; PROVENTIL HFA ; VENTOLIN HFA) 90 mcg/actuation inhaler Inhale 2 Puffs into the lungs 4 times daily as needed for Cough or Wheezing. 09/23/2017 Active ARIPiprazole (ABILIFY) 2 mg tablet Take 2 mg by mouth daily. Active atorvastatin (LIPITOR) 20 mg tablet Take 20 mg by mouth daily. Active budesonide (PULMICORT) 0.5 mg/2 mL nebulizer solution 09/06/2017 Active budesonide-formoteroL (SYMBICORT) 160-4.5 mcg/actuation inhaler 08/03/2018 Act delonte FLUoxetine (PROzac) 20 mg capsule Take 20 mg by mouth daily. Active loratadine (CLARITIN) 10 mg tablet 05/09/2018 Active LORazepam (ATIVAN) 1 mg tablet Take 1 mg by mouth every 6 hours as needed. Active montelukast (SINGULAIR) 10 mg tablet TAKE 1 TAB BY MOUTH AT BEDTIME FOR 30 DAYS. 08/01/2018 Active roflumilast (Daliresp) 500 mcg tablet TAKE 1 TABLET DAILY DIRECTED. 01/17/2018 Active tiotropium (Spiriva Respimat) 2.5 mcg/actuation inhalation spray 05/16/2017 Active cholecalciferol, vitamin D3, 25 mcg (1,000 unit) tablet,chewable Take by mouth. Activ e Active Problems Problem Noted Date Diagnosed Date Rib fracture 05/16/2017 COPD (chronic obstructive pulmonary disease) HLD (hyperlipidemia) 05/03/2017 Medical History Medical History Date Comments COPD (chronic obstructive pu lmonary disease) (CMS/HCC) 05/03/2017 DX:COPD (chronic obstructive pulmonary disease) (HCC) HLD (hyperlipidemia) 05/03/2017 DX:HLD (hyp erlipidemia) History of tobacco use 05/03/2017 DX:Histor y of tobacco use Social History Tobacco Use Types Packs/Day Years Used Date Smoking Tobacco: Former Cigarettes Smokeless Tobacco: Never Alcohol Use Standard Drinks/Week Comments No 0 (1 standard drink = 0.6 oz pur e alcohol) Sex and Gender Information Value Date Recorded Sex Assigned at Not on file Gender Identity Not on file Sexual Orientation Not on file Obstetrics History Plan of Treatment Upcoming Encounters Date Type Department Care Team ([facility] st Contact Info) Description 06/05/2024 10:30 AM EST Ancillary Procedure [facility] [address] [facility] [address] [place] [address] Health Maintenance Due Date Last Done Comments Breast Cancer Screening 1950 Pneumococcal Vaccine: 65+ Ye ars (1 of 2 - PCV) 1957 DTaP,Tdap,and Td Vaccines (1 - Tdap) 1970 Zoster Vaccines (1 of 2) 2001 RSV Immunization Patients 60 + Years Old (1 - Risk 60-74 years 1-dose series) 2011 Cholesterol Screening (Lipid Panel) 03/14/2022 Colorectal Cancer Screening: Colonoscopy 03/14/2022 Depression Screening 03/14/2022 Falls Risk Assessment 03/14/2022 Hepatitis C Screening 03/14/2022 Social Influencers of Health Screening 03/14/2022 COVID-19 Vaccine (1 - 2023-2 5 season) 2023 Influenza Vaccine (#1) 2023 Osteoporosis Screening (Bone Density Screening) 05/26/2027 05/26/2017 HIB Vaccines Aged Out No longer eligi ble based on patient's age to complete this topic HPV Vaccines Aged Out No longer eligi ble based on patient's age to complete this topic Hepatitis A Vaccines Aged Out No long er eligible based on patient's age to complete this topic Hepatitis B Vaccines Aged Out No long er eligible based on patient's age to complete this topic IPV Vaccines Aged Out No longer eligi ble based on patient's age to complete this topic MMR Vaccines Aged Out No longer eligi ble based on patient's age to complete this topic Meningococcal ACWY Vaccine Aged Out N o longer eligible based on patient's age to complete this topic RSV Immunization Patients Un calli 20 months Aged Out No longer eligible b ased on patient's age to complete this topic Varicella Vaccines Aged Out No longer eligible based on patient's age to complete this topic Procedures Procedure Name Priority Date/Time Associated Diagnosis Comments DXA BONE DENSITY STUDY 1+ SITS AXIAL SKEL Routine 05/26/2017 9:50 AM EST Chronic obstructive pulmonary disease with (acute) exacerbation (CMS/HCC) Multiple fractures of ribs, left side, subsequent encounter for fracture with routine healing from Last 3 Months or Most Recently Relevant to Health Maintenance Results * DXA BONE DENSITY STUDY 1+ SITS AXIAL SKEL (05/26/2017 9:50 AM EST) Anatomical Region Laterality Modality Bone Densitometr y 05/16/2017 11:1 1 AM EST Narrative 05/26/2017 12:37 PM EST DEXA SCAN: Lumbar Spine T-score is -0.4. ?? (SD relative to 20-29 y/o adult) Z-score is 1.4. ??(SD relative to age matched peers) This is considered normal by WHO criteria. Left Hip T-score is -2.3. Z-score is -1.0. This is considered osteopenia by WHO criteria. Comparison exam(s): None. IMPRESSION: Osteopenia by WHO criteria. This patient has a 28%% risk of major osteoporotic fracture and a 5.8% risk of hip fracture over the next 10 years. (World Health Organization Fracture Risk Assessment) The [facility] Department of Internal Medicine recommends using National Osteoporosis Foundation (NOF) guidelines in treatment decisions related to osteoporosis. NOF guidelines suggest considering treatment for postmenopausal women and men aged 50 or older presenting with the following: History of hip or vertebral fracture. T-score = -2.5 (DXA) at the femoral neck, total hip, or spine, after appropriate evaluation to exclude secondary causes. Low bone mass (T-score between -1.0 and -2.5 at the femoral neck or spine) AND a 10-year probability of a hip fracture = 3% OR a 10-year probability of a major osteoporosis-related fracture = 20% based on the [place]-adapted WHO algorithm Please note that all treatment decisions require clinical judgment and consideration of individual patient factors, including patient preferences, co-morbidities, previous drug use, risk factors not captured in the FRAX model (e.g., frailty, falls, vitamin D deficiency, increased bone turnover, interval significant decline in bone density) and possible under- or over-estimation of fracture risk by FRAX. Optional alternative screening schedule based on prisca Erazo al., [facility] April 22, 2011 for patients with osteopenia (based on hip BMD T-score) is as follows: * ??advanced osteopenia (T scores -2.00 to -2.49), BMD testing every year * ??moderate osteopenia (T scores -1.50 to -1.99), BMD testing every 5 years mild osteopenia or normal BMD (T scores -1.50 and higher), BMD testing every 15 years Procedure Note Harry Ndiaye MD - 05/09/2023 DEXA SCAN: Lumbar Spine T-score is -0.4. (SD relative to 20-29 y/o adult) Z-score is 1.4. (SD relative to age matched peers) This is considered normal by WHO criteria. Left Hip T-score is -2.3. Z-score is -1.0. This is considered osteopenia by WHO criteria. Comparison exam(s): None. IMPRESSION: Osteopenia by WHO criteria. This patient has a 28%% risk of majorosteoporotic fracture and a 5.8% risk of hip fracture over the next 10 years. (WorldHealth Organization Fracture Risk Assessment) The [facility] Department of Internal Medicine recommendsusing National Osteoporosis Foundation (NOF) guidelines in treatment decisions related toosteoporosis. NOF guidelines suggest considering treatment for postmenopausal women and menaged 50 or older presenting with the following: History of hip or vertebral fracture. T-score = -2.5 (DXA) at the femoral neck, total hip, or spine, afterappropriate evaluation to exclude secondary causes. Low bone mass (T-score between -1.0 and -2.5 at the femoral neck or spine)AND a 10-year probability of a hip fracture = 3% OR a 10-year probability of a majorosteoporosis-related fracture = 20% based on the [place]-adapted WHO algorithm Please note that all treatment decisions require clinical judgment andconsideration of individual patient factors, including patient preferences, co- morbidities,previous drug use, risk factors not captured in the FRAX model (e.g., frailty, falls, vitaminD deficiency, increased bone turnover, interval significant decline in bone density) andpossible under- or over-estimation of fracture risk by FRAX. Optional alternative screening schedule based on prisca Erazo al., NEJJanuary 2011 for patients with osteopenia (based on hip BMD T-score) is as follows: * advanced osteopenia (T scores -2.00 to -2.49), BMD testing every year * moderate osteopenia (T scores -1.50 to -1.99), BMD testing every 5years mild osteopenia or normal BMD (T scores -1.50 and higher), BMD testingevery 15 years eNville Martínez MD IMG DXA PROCEDURES from Last 3 Months or Most Recently Relevant to Health Maintenance Care Teams Associate Producer Relationship Specialty Start Date End Date Cheo Figueroa MD [address] PCP - General 06/10/09
[2024-05-04 11:19] LABS: Basophils Absolute Auto 0.1 X10*3/uL (0.0-0.2); Basophils Percent Auto 0.8 % (0-2); Eosinophils Absolute Auto 0.4 X10*3/uL (0.0-0.4); Eosinophils Percent Auto 5.4 % (0-4); Hematocrit 40.3 % (37.0-47.0); Hemoglobin 13.4 g/dl (12.0-16.0); Imm Gran Abs Auto 0.01 X10*3/uL (0.00-0.03); Imm Gran Pct Auto 0.2 % (0.0-0.4); Lymphocytes Absolute Auto 1.5 X10*3/uL (1.2-4.9); Lymphocytes Percent Auto 23.8 % (20-40); Mean Corpuscular HGB Conc 33.3 g/dl (31.0-35.0); Mean Corpuscular Hemoglobin 29.7 pg (27.0-33.0); Mean Corpuscular Volume 89.4 fL (80.0-98.0); Monocytes Absolute Auto 0.5 X10*3/uL (0.1-1.2); Monocytes Percent Auto 8.2 % (2-11); Neutrophils Percent Auto 61.6 % (45-73); Platelet Count 187 X10*3/uL (160-400); Red Blood Count 4.51 X10*6/uL (4.20-5.50); Red Cell Distribution Width 12.1 % (11.0-16.0); White Blood Count 6.4 X10*3/uL (4.8-10.8)
[2024-05-04 11:41] LABS: Anion Gap 12 (12-20); Blood Urea Nitrogen 19 mg/dL (9-16); Calcium 9.5 mg/dL (8.4-10.2); Carbon Dioxide 29 mmol/L (22-29); Chloride 107 mmol/L (96-108); Estimated Glomerular Filt Rate > 60; Glucose Random 86 mg/dL (60-115); Potassium 4.5 mmol/L (3.3-5.1); Sodium 143 mmol/L (135-145)
[2024-05-04 14:55] LABS: Troponin-I High Sensitivity < 2.7 ng/L (<3.5-17.0)
[2024-05-07 07:54] LABS: Theophylline 2.9
== END 2024-05-04 10:05 | disposition home or self-care (01) ==
LOC: HO.LAB 10:04
PROVIDERS: PCP Internal Medicine; Visit Provider Hospitalist
DX: J96.11 Chronic respiratory failure with hypoxia (principal); J96.12 Chronic respiratory failure with hypercapnia; J41.8 Mixed simple and mucopurulent chronic bronchitis
CPT/HCPCS: 36415; 80048; 80198; 82803; 84484; 85025

== ENCOUNTER 2024-11-26 09:53 | Outpatient (AMB) | payer BC, SELFPAY ==
[2024-11-26 09:56] VITALS: BP 112/54; PULSE 74; O2SAT 95
--- NOTE | 2024-11-26 09:56 | MHC.OFFVIS ---
Vital Signs 11/26/24 09:56 Height 5 ft 5 in BMI Reason not done Patient refused/unable BP 112/54 L Blood Pressure Location Lt brachial Position Sitting Pulse 74 Pulse Source Pulse Oximeter Pulse Oximetry (%) 95 Oxygen Delivery Method Room Air Intake Visit Reasons: COPD Accompanied by: Self / Same As Patient Allergies hydrocodone (From Vicodin) Allergy (Mild, Verified 11/26/24 09:58) Rash HPI Comments Details: The patient is a 74-year-old woman known asthma-COPD and chronic bronchitis. She has been doing very well. She has lost significant weight. She is active taking care of her grandchildren. Although she does not exercise regularly. She was started me that she did get a new treadmill and she used once. She had a room but in and the speed went up to 9 mph. She subsequently fell from and has not gone back on it. She will try again being careful not to speed up. She has not been using the Symbicort regularly. She only uses it once in a while. Explained to her she is better off and he is using it once a day. Also provided with rescue inhaler. She does have a hard time expectorating. She has had a history rib fractures and she does not want fracture of the rib. Because of her COPD and chronic bronchitis I believe a Acapella valve will be effective by allowing her to provide chest physical therapy. The patient is still participating in the lung cancer screening program at [facility]. 04/07/2023 the patient is here for a pulmonary follow-up visit. The patient overall continues to have a productive cough. The cough is now tenacious yellowish-green in color. It is difficult to expectorate at times. Moderate severity. Complains of shortness of breath and wheezing. She did complete the antibiotics in the prednisone recently. It was only partially helpful. We also did request an echocardiogram. No evidence of any cor pulmonale. She does have significant eosinophilia and therefore has a component of eosinophilic bronchitis. The patient will benefit from biologic therapy such as Dupixent. However, the insurance company denied access to that medication. Therefore will place her back on prednisone and also will get a sputum culture. She continues use her respiratory therapy. She continues have sick contacts and she is bringing up her grandchildren. Therefore, the sputum culture should help us make sure that we can clear any ongoing infections. The patient says she cultures not helpful if she continues to be symptomatic even after her 3rd course of antibiotics and will request a bronchoscopy to be performed. 05/18/2023 the patient is here for a pulmonary follow-up visit. The patient continues to struggle with breathing. Significant shortness breath with minimal activity. She has been using the oxygen with good effect. Her cough seems to be little better although she still expectorating phlegm. The patient has been off prednisone at this time. We did review her last blood work including venous gas demonstrating an elevated CO2 of 55 mmHg. Based on chronic respiratory failure with hypercapnia the patient will benefit from noninvasive ventilator. This will provide her with relief with the work of breathing at nighttime while sleeping and also as needed. The patient is also using her nebulized therapy with DuoNeb. Will go ahead and add back the budesonide to try to help her ease the need for prednisone. I will give her some prednisone but a lower dose so we can have her take for longer period of time. 06/16/2023 the patient is here for pulmonary follow-up visit. She has doing a little better. She still continues to taper down prednisone. She has yet to start the noninvasive ventilator. I believe that is going to be next week. In the meantime she continues on the azithromycin 3 times a week. She is also tolerating the Daliresp. She is still struggling with breathing however. She barely can do activities of daily living because her significant shortness breath. She did start walking some although she is walking slow. We did talk about the online pulmonary rehabilitation in a did give her information about that. In view of her worsening respiratory capacity will go ahead and request PFTs for the next visit. 08/18/2023 the patient is here for a sick visit. She started developing worsening respiratory symptoms for the last 5-7 days. Denies any fevers or chills. Started developing worsening cough chest congestion shortness of breath. Moderate severity. Also has malaise and fatigue. She has not able to expectorate. She has been using nebulized therapy. She has been noticing some desaturations down to 90%. She has been using her oxygen more regularly. The patient is having significant rhonchi and wheezing on examination. We did give her 2 DuoNeb treatments which did help her. Oxygen improved to about 96% on room air while using the nebulizer. Therefore, since she is still having significant wheezing we did give her Solu-Medrol 125 mg IM x1 is going to start a couple antibiotics to treat her for lower respiratory infection. If the patient worsens she needs to go to the ER. Otherwise if she has no better in about 48 hours she also may need to go seek further medical advice. 09/15/2023 the patient is here for a pulmonary follow-up visit. Overall the patient is doing well. She is tapered down to 10 mg of prednisone. Still having some wheezing but a lot better. She feels like she is getting closer to her baseline. She continues her respiratory therapy her nebs as prescribed. The patient continues using her oxygen also with good effect. She needs a few more comfortable using the oxygen around people sometimes she feels uncomfortable. The patient needs to start pulmonary rehabilitation. She has a hard time because it isn't low. She is going to start online pulmonary rehabilitation at this time. I did give her the information needed in order to look into it. Also will going to slow down her prednisone taper by given her 5 mg tablets and she will decrease it down to 10 mg every other day for couple weeks and then she can go down to 5 mg every other day for the couple weeks. Hopefully we can taper off. Need. As far as imaging studies. Her last chest x-ray demonstrating no acute disease. 01/02/2024 the patient is here for pulmonary follow-up visit. She still struggling with breathing. She is having shortness of breath with minimal activity. She is having to increase her oxygen up to 3-4 L at home. She just does not feel good. She did restart the prednisone currently taking 10 mg daily. Initially on arrival she also was complaining of headache. Her blood pressure was elevated 160/80. I did recheck her left arm was 190/90 and then checked her right arm was 170/ 90. After getting her sit and relax a little bit we were able to recheck it again on her left arm was 160/90. I did call her primary care specially since she is having symptoms. She is only taking amlodipine right now. The primary care doctor did recommend for her to come into the office so she can get checked. Also, we talked about getting blood work. The patient should have additional blood work specially to rule out anemia that can also resulting worsening shortness of breath. Also as far as medications she is already medically optimized her inhaler therapy. We can consider starting theophylline but I would want to make sure that her blood pressure is better before doing so or starting any other medications before starting the theophylline specially since theophylline can be problematic with interactions and side effects. 02/14/2024 the patient is here for a pulmonary follow-up visit. The last time she went to her primary care doctor because her blood pressure was elevated and her medications were adjusted. She is doing better at this time. She did not start the theophylline that because she was concerned about the blood pressure. But now is better. We will go ahead and have her started at a low dose specially since she continues to have significant dyspnea on exertion. Will make sure she is optimized with respiratory therapy but I do believe that theophylline will provide her some bronchodilation effect provide her some relief. Once she is on a she is going to company get blood work including a blood gas and also a theophylline level to see if we can further adjusted. Her CO2 have been slightly elevated but have been stable which is reassuring. For some reason she has only been taking Arnuity for inhaler. Will go ahead and switch over to Trelegy as she does need the maximum respiratory therapy in order to treat her very severe COPD. 05/04/2024 the patient is here for a pulmonary follow-up visit. Overall the patient has been doing well. She is tolerating the medication was theophylline she continues on the prednisone 10 once daily down to 5 mg she also continues on the rest of the respiratory therapy with good adherence. She will have blood work today including a theophylline level to make sure that she is within therapeutic range of the subtherapeutic which would be ideal. The patient continues to exercise regularly which is reassuring. At some point will check her blood gas to make sure her CO2 is within reason and will follow-up in 4 months. If she has any issues prior to this she will call for reassessment. [facility] Medical History (Updated 01/02/24 @ 14:25 by Neville Martínez MD) Chronic respiratory failure Asthma-COPD overlap syndrome Asthma Allergies Depression On home oxygen therapy Hyperlipidemia Hypertension Anxiety COPD (chronic obstructive pulmonary disease) Social History Household Members: Family Housing: House Do you presently have visiting nurse or other home services: No Alcohol intake: never Patient Tobacco Use Status: Former Tobacco user Tobacco use type: Cigarette Years Smoked: 25 years service: No Current occupational status: retired Review of Systems Const Reports headache(s) and Denies night sweats ENT Denies change in voice, Reports headache(s), Denies lip swelling, Denies mouth pain, Reports nasal congestion, Reports nasal discharge and Denies tongue swelling Card Denies chest pain, Reports dyspnea and Reports dyspnea on exertion Resp Denies chest congestion, Reports cough, Denies hemoptysis, Reports dyspnea, Reports dyspnea on exertion and Reports wheezing GI Denies abdominal pain Musc Denies no additional complaints Neuro Denies Neuro-related abnormal movements and Reports headache(s) Psych Denies no additional complaints Hair/Lymph Denies easy bleeding and Denies lymphadenopathy Aller/Immun Denies lip swelling, Denies tongue swelling and Reports wheezing Physical Exam Vital Signs: Last Vital Signs Pulse 74 11/26/24 09:56 BP 112/54 L 11/26/24 09:56 Pulse Ox 95 11/26/24 09:56 Oxygen Delivery Method Room Air 11/26/24 09:56 Const General: alert and tired appearing HEENT General nose exam: Abnormal external nose present and Nasal discharge present Eyes Pupils: Equal, round and reactive pupils present Neck Neck: Yes supple Chest Chest palpation & inspection: normal inspection of the chest Resp Effort & Inspection: prolonged expiratory phase Auscultation: no crackles, no rhonchi and diminished lung sounds diffuse Cardio Rate: regular rate Rhythm: regular rhythm Heart sounds: S1 normal heart sound present and S2 normal heart sound present GI Palpation (GI): Soft to palpation and nontender Auscultation: normal bowel sounds General: Yes no CVA tenderness Back/Spine/Pelvis Back: no CVA tenderness Skin General skin exam: rashes and/or lesions noted Neuro Cranial nerves: Yes Equal, round and reactive pupils present Assessment & Plan Assessment & Plan (1) COPD (chronic obstructive pulmonary disease): Code(s): J44.9 - Chronic obstructive pulmonary disease, unspecified Category: Medical Qualifiers: COPD type: chronic bronchitis Chronic bronchitis type: mixed simple and mucopurulent Qualified Code(s): J41.8 - Mixed simple and mucopurulent chronic bronchitis (2) Dyspnea: Code(s): R06.00 - Dyspnea, unspecified Category: Medical Qualifiers: Dyspnea type: dyspnea on exertion Qualified Code(s): R06.09 - Other forms of dyspnea (3) Asthma-COPD overlap syndrome: Code(s): J44.89 - Other specified chronic obstructive pulmonary disease Category: Medical (4) Chronic respiratory failure: Code(s): J96.10 - Chronic respiratory failure, unspecified whether with hypoxia or hypercapnia Category: Medical Qualifiers: Respiratory failure complication: hypoxia and hypercapnia Qualified Code(s): J96.11 - Chronic respiratory failure with hypoxia; J96.12 - Chronic respiratory failure with hypercapnia Plan stop prednisone taper, 5 mg day now off continue Trelegy continue Azithromycin MWF start Nucala SC [id number] continue oxygen with activity 2L/pulse Continue Duoneb QID as needed stopped Daliresp 500 mcg Stopped Theophyline Stop Singulair due to depressive symptoms F/U 3-4 months Medications: Discontinued roflumilast Discontinued Reason: Doctor's Order 250 mcg PO DAILY 90 tabs 0RF Coding Level of Care Code Est Pt Level 4 (36452) Complex EM visit Add On G2211 Diagnoses Mixed simple and mucopurulent chronic bronchitis J41.8 COPD type: chronic bronchitis Chronic bronchitis type: mixed simple and mucopurulent Dyspnea on exertion R06.09 Dyspnea type: dyspnea on exertion Asthma-COPD overlap syndrome J44.89 Chronic respiratory failure with hypoxia and hypercapnia J96.11; J96.12 Respiratory failure complication: hypoxia and hypercapnia Time Spent (min) 17
--- OUTSIDE RECORDS SUMMARY | 2024-11-26 10:49 | XMS_ITS | Clinical Summary ---
Author Organization [address] [place] [address] Address [address] [place] [address] Phone Care Team Providers Care Hot Pipe Gauger Name Role Phone Cheo Figueroa MD Primary Care Provider [phone] Allergies Active Allergy Reactions Criticality Noted Date Comments Hydrocodone-Acetaminophen Rash 04/22/2017 Medications albuterol HFA (PROAIR HFA ; PROVENTIL HFA ; VENTOLIN HFA) 90 mcg/actuation inhaler Inhale 2 Puffs into the lungs 4 times daily as needed for Cough or Wheezing. 09/23/2017 Active ARIPiprazole (ABILIFY) 2 mg tablet Take 2 mg by mouth daily. Active atorvastatin (LIPITOR) 20 mg tablet Take 20 mg by mouth daily. Active budesonide (PULMICORT) 0.5 mg/2 mL nebulizer solution 09/06/2017 Active budesonide-form oteroL (SYMBICORT) 160-4.5 mcg/actuation inhaler 08/03/2018 Active FLUoxetine (PROzac) 20 mg capsule Take 20 [...] Respimat) 2.5 mcg/actuation inhalation spray 05/16/2017 Active cholecalciferol , vitamin D3, 25 mcg (1,000 unit) tablet,chewable Take by mouth. Active Active Problems Problem Noted Date Diagnosed Date Rib fracture 05/16/2017 COPD (chronic obstructive pu lmonary disease) [place] [place] [facility] [place]28) 05/03/2017 HLD (hyperlipidemia) 05/03/2017 Medical History Medical History Date Comments COPD (chronic obstructive pu lmonary disease) ([facility], [facility] V28) 05/03/2017 DX:COPD (chronic o bstructive pulmonary disease) ([facility]) HLD (hyperlipidemia) 05/03/2017 DX:HLD (hyp erlipidemia) History of tobacco use 05/03/2017 DX:Histor y of tobacco use Social History Tobacco Use Types Packs/Day Years Used Date Smoking Tobacco: Former Cigarettes Smokeless Tobacco: Never Alcohol Use Standard Drinks/Week Comments No 0 (1 standard drink = 0.6 oz pur e alcohol) Comments Unknown Sex and Gender Information Value Date Recorded Sex Assigned at Not on file Legal Sex Female 1:23 PM EST Gender Identity Not on file Sexual Orientation Not on file Obstetrics History Plan of Treatment Upcoming Encounters Date Type Department Care Team (Late st Contact Info) Description 12/31/2024 1:00 PM EDT Ancillary Procedure [facility] [address] [facility] [address] [place] [address] Health Maintenance Due Date Last Done Comments Breast Cancer Screening 1950 Zoster Vaccines (1 of 2) 2001 RSV Immunization Adult Patients (1 - Risk 60-74 years 1-dose series) 2011 Cholesterol Screening (Lipid Panel) 03/14/2022 Colorectal Cancer Screening: Colonoscopy 03/14/2022 Falls Risk Assessment 03/14/2022 Hepatitis C Screening 03/14/2022 Social Influencers of Health Screening 03/14/2022 COVID-19 Vaccine ( season) 2023 01/19/2022, 04/15/2021, 06/14/2020, Additional history exists Depression Screening 04/04/2024 Influenza Vaccine (#1) 2024 , 02/17/2023, 01/19/2022, Additional history exists Osteoporosis Screening (Bone Density Screening) 05/26/2027 05/26/2017 DTaP,Tdap,and Td Vaccines (2 - Td or Tdap) 07/27/2033 07/28/2023 Pneumococcal Vaccine: 50+ Years Completed 01/07/2023 HIB Vaccines Aged Out No longer eligi [...] patient's age to complete this topic Meningococcal B Vaccine Aged Out No l onger eligible based on patient's age to complete this topic RSV Immunization Patients Under 20 months Aged Out No longer eligible based on patient's age to complete this topic Varicella Vaccines Aged Out No longer eligible based on patient's age to complete this topic Medical Devices Implanted Type Area Property Disposal Manager Device Identifier Shelf Expiration Date Model / Serial / Lot Medt-Card Adapta L [id number] [id number] Implanted:04/2010 (Quantity not on file) Cardiac Pacemaker [employer] - CARDIAC RHYTH-CRDM ADAPTA L [id number] / [id number] / Procedures Procedure Name Priority Date/Time Associated Diagnosis Comments DXA BONE DENSITY STUDY 1+ SITS AXIAL SKEL Routine 05/26/2017 9:50 AM EST Chronic obstructive pulmonary disease with (acute) exacerbation (CMS/HCC V24, CMS/HCC V28) Multiple fractures of ribs, left side, subsequent [...] (World Health Organization Fracture Risk Assessment) [facility] Department of Internal Medicine recommends using National [...] FRAX. Optional alternative screening schedule based on rain E[place]o., [facility] April 22, 2011 for patients with osteopenia [...] years. (WorldHealth Organization Fracture Risk Assessment) [facility] Department of Internal Medicine recommendsusing National Osteoporosis [...] FRAX. Optional alternative screening schedule based on rain Erazo., NEJMJanuary 2011 for patients with osteopenia (based on hip BMD T-score) is as follows: * advanced osteopenia (T scores -2.00 to -2.49), BMD testing every year * moderate osteopenia (T scores -1.50 to -1.99), BMD testing every 5years mild osteopenia or normal BMD (T scores -1.50 and higher), BMD testingevery 15 years us Neville Martínez MD [facility] DXA PROCEDURES Final R esult from Last 3 Months or Most Recently Relevant to Health Maintenance Insurance MEDICARE [facility] Care Teams Hot Pipe Gauger Relationship Specialty Start Date End Date Cheo Figueroa MD [address] [place] [address] PCP - General 06/10/09
== END 2024-11-26 10:13 | disposition home or self-care (01) ==
LOC: HO.HPS 09:54
PROVIDERS: PCP Internal Medicine; Visit Provider Hospitalist
DX: J41.8 Mixed simple and mucopurulent chronic bronchitis (principal); R06.09 Other forms of dyspnea; J44.89 Other specified chronic obstructive pulmonary disease; J96.11 Chronic respiratory failure with hypoxia; J96.12 Chronic respiratory failure with hypercapnia
CPT/HCPCS: 99214